=== PATIENT | female | born 1945 | race Two or more races ===

== ENCOUNTER → 2017-10-14 | Outpatient (CLI) | payer MEDICARE ==
--- NOTE | 2017-10-14 11:53 | BD ---
EXAMINATION TYPE: MG DEXA axial skeleton. DATE OF EXAM: 10/14/2017 COMPARISON: NONE CLINICAL HISTORY: PT IS A 71 YR OLD FEMALE: ICD-10 CODE: M85.80 DISORDER OF BONE Height: 60.2 Weight: 174 FRAX RISK QUESTIONS: Alcohol (3 or more units per day): NO Family History (Parent hip fracture): NO Glucocorticoids (More than 3mos): NO (Ex: prednisone, prednisolone, methylprednisolone, dexamethasone, and hydrocortisone). History of Fracture in Adulthood: NO Secondary Osteoporosis: YES 1. Type 1 Diabetes: NO 2. Hyperthyroidism: NO 3. Menopause before 45: YES, AT 44 YRS 4. Malnutrition: NO 5. Chronic liver disease: NON Rheumatoid Arthritis: NO Current Tobacco Use: NO RISK FACTORS HISTORY OF: Family History of Osteoporosis: NO Active: YES, FAIRLY Diet low in dairy products/other sources of calcium: YES A BIT LOW Postmenopausal woman: YES ABOUT AGE 44 YRS OLD Hyperparathyroidism: NO Adrenal Insufficiency: NO MEDICATIONS: Osteoporosis Medications: NO Additional Medications: BP MEDS, VIT D, REFLUX MEDS IN PAST FOR 10 YRS Additional History: NONE TO NOTE EXAM MEASUREMENTS: Bone mineral densitometry was performed using the [employer] System. Bone mineral density as measured about the Lumbar spine is: ----- L1-L4(G/cm2): 1.299 T Score Values are as follows: ----- L1: 0.0 ----- L2: 0.2 ----- L3: 1.6 ----- L4: 2.5 ----- L1-L4: 1.0 Bone mineral density FIRST BONE DENSITY STUDY AT [facility] Bone mineral density about the R hip (g/cm2): 0.831 Bone mineral density about the L hip (g/cm2): 0.846 T Score values are as follows: -----R Neck: -1.8 -----L Neck: -2.2 -----R Total: -1.4 -----L Total: -1.3 Bone mineral density FIRST STUDY AT [facility] FRAX%'S: THERE IS A 12.8% CHANCE OF A MAJOR OSTEOPOROTIC FX AND A 2.9% FOR A HIP FX.....PROBABILIT Y OF FX IN 10 YRS TIME IMPRESSION: Osteopenia (T Score between -2.5 and -1) as noted by T score values with regards to both hips. There is slightly increased risk of fracture and the patient may be considered for treatment. Re-Screen 2-5 years. NOTE: T-SCORE=SD OF THE YOUNG ADULT MEAN.
--- NOTE | 2017-10-15 09:13 | MM ---
Reason for exam: screening (asymptomatic). Last mammogram was performed 1 year and 7 months ago. History: Patient is postmenopausal and has history of other cancer at age 31. Benign cyst aspiration of the left breast, 1979. Took hormonal contraceptives beginning at age 20. Took estrogen beginning at age 50. Took progesterone beginning at age 50. Physical Findings: A clinical breast exam by your physician is recommended on an annual basis and results should be correlated with mammographic findings. MG 3D Screening Mammo W/Cad Bilateral CC and MLO view(s) were taken. Prior study comparison: March 02, 2016, mammogram, performed at [facility]. February 23, 2015, mammogram, performed at [facility]. Benign calcifications in the left breast. No significant changes when compared with prior studies. ASSESSMENT: Benign, BI-RAD 2 RECOMMENDATION: Routine screening mammogram of both breasts in 1 year.
== END | disposition home or self-care (01) ==
LOC: RADMAMWWP 08:12
PROVIDERS: ATTEND Family Medicine
DX: Z12.31 Encounter for screening mammogram for malignant neoplasm of breast (principal); M85.852 Other specified disorders of bone density and structure, left thigh; M85.851 Other specified disorders of bone density and structure, right thigh
CPT/HCPCS: 77063; 77067; 77080

== ENCOUNTER → 2019-01-12 | Outpatient (CLI) | payer MEDICARE ==
--- NOTE | 2019-01-14 11:14 | MM ---
Reason for exam: screening (asymptomatic). Last mammogram was performed 1 year and 3 months ago. History: Patient is postmenopausal and has history of other cancer at age 31. Benign cyst aspiration of the left breast, 1979. Took hormonal contraceptives beginning at age 20. Took estrogen beginning at age 50. Took progesterone beginning at age 50. Physical Findings: A clinical breast exam by your physician is recommended on an annual basis and results should be correlated with mammographic findings. MG 3D Screening Mammo W/Cad Bilateral CC and MLO view(s) were taken. Prior study comparison: October 14, 2017, bilateral MG 3d screening mammo w/cad. March 02, 2016, mammogram, performed at [facility]. There are scattered fibroglandular densities. No suspicious abnormality. No significant changes when compared with prior studies. ASSESSMENT: Negative, BI-RAD 1 RECOMMENDATION: Routine screening mammogram of both breasts in 1 year.
== END | disposition home or self-care (01) ==
LOC: RADMAMWWP 09:05
PROVIDERS: ATTEND Family Medicine
DX: Z12.31 Encounter for screening mammogram for malignant neoplasm of breast (principal)
CPT/HCPCS: 77063; 77067

== ENCOUNTER → 2020-03-15 | Outpatient (CLI) | payer MEDICARE ==
--- NOTE | 2020-03-17 08:05 | MM ---
Reason for exam: screening (asymptomatic). Last mammogram was performed 1 year and 2 months ago. History: Patient is postmenopausal and has history of other cancer at age 31. Benign cyst aspiration of the left breast, 1979. Took hormonal contraceptives beginning at age 20. Took estrogen beginning at age 50. Took progesterone beginning at age 50. Physical Findings: A clinical breast exam by your physician is recommended on an annual basis and results should be correlated with mammographic findings. MG 3D Screening Mammo W/Cad Bilateral CC and MLO view(s) were taken. Prior study comparison: January 12, 2019, bilateral MG 3d screening mammo w/cad. October 14, 2017, bilateral MG 3d screening mammo w/cad. The breast tissue is almost entirely fat. Benign calcifications. There is chronic nodularity in the left breast. No significant changes when compared with prior studies. ASSESSMENT: Benign, BI-RAD 2 RECOMMENDATION: Routine screening mammogram of both breasts in 1 year.
== END | disposition home or self-care (01) ==
LOC: RADMAMWWP 09:12
PROVIDERS: ATTEND Family Medicine
DX: Z12.31 Encounter for screening mammogram for malignant neoplasm of breast (principal)
CPT/HCPCS: 77063; 77067

== ENCOUNTER → 2021-08-24 | Outpatient (CLI) | payer MEDICARE ==
--- NOTE | 2021-08-25 11:51 | MM ---
Reason for exam: screening (asymptomatic). Last mammogram was performed 1 year and 5 months ago. History: Patient is postmenopausal and has history of other cancer at age 31. Benign cyst aspiration of the right breast, 1979. Took hormonal contraceptives beginning at age 20. Took estrogen beginning at age 50. Took progesterone beginning at age 50. Physical Findings: A clinical breast exam by your physician is recommended on an annual basis and results should be correlated with mammographic findings. MG 3D Screening Mammo W/Cad Bilateral CC and MLO view(s) were taken. Prior study comparison: March 15, 2020, bilateral MG 3d screening mammo w/cad. January 12, 2019, bilateral MG 3d screening mammo w/cad. The breast tissue is almost entirely fat. There are benign appearing round calcifications bilaterally. There is no discrete abnormality. ASSESSMENT: Benign, BI-RAD 2 RECOMMENDATION: Routine screening mammogram of both breasts in 1 year.
== END | disposition home or self-care (01) ==
LOC: RADMAMWWP 09:11
PROVIDERS: ATTEND Family Medicine
DX: Z12.31 Encounter for screening mammogram for malignant neoplasm of breast (principal)
CPT/HCPCS: 77063; 77067

== ENCOUNTER → 2022-07-16 | Outpatient (CLI) | payer MEDICARE ==
--- NOTE | 2022-07-16 17:30 | CT ---
EXAMINATION TYPE: CT shoulder RT wo con DATE OF EXAM: 07/16/2022 COMPARISON: None HISTORY: pain right shoulder CT DLP: 438 mGycm Automated exposure control for dose reduction was used. Contrast: None Technique: Axial images 3 mm thick sections. Reconstructed images in the coronal and sagittal plane. FINDINGS: Humeral head articulates with the glenoid. The acromioclavicular junction is intact. There is downwar d sloping of the acromion which can contribute to impingement syndrome. No acute fractures are identi fied. There is loss of the glenohumeral joint space. Subchondral cyst formation is evident. Humeral head sp urring is present. IMPRESSION: 1. ADVANCED OSTEOARTHRITIC DEGENERATIVE CHANGE WITH LOSS OF THE JOINT SPACE AND CHANGES OF JOINT SPAC E DESTRUCTION RIGHT SHOULDER.
== END | disposition home or self-care (01) ==
LOC: RADCTMAIN 07:44
PROVIDERS: ATTEND Orthopaedic Surgery
DX: M19.011 Primary osteoarthritis, right shoulder (principal)

== ENCOUNTER → 2022-08-27 | Outpatient (CLI) | payer MEDICARE ==
--- NOTE | 2022-08-28 20:01 | MM ---
Reason for Exam: Screening (asymptomatic). Last screening mammogram was performed 12 month(s) ago. Patient History: Menarche at age 11. First Full-Term at age 18. Hysterectomy at age 31. Postmenopausal. Other cancer, age 31. Estrogen, from age 50 until age 55. Progesterone, from age 50 until age 55. Hormonal Contraceptives, from age 20 until age 24. 1980, Benign Cyst Aspiration on the right side. Risk Values: Sarah 5 year model risk: 1.4%. NCI Lifetime model risk: 2.8%. Prior Study Comparison: 01/12/2019 Bilateral Screening Mammogram, [facility]. 03/15/2020 Bilateral Screening Mammogram, [facility]. 08/24/2021 Bilateral Screening Mammogram, [facility]. Tissue Density: The breast tissue is almost entirely fat. Findings: Analyzed By CAD. There is no suspicious group of microcalcifications or new suspicious mass in either breast. Overall Assessment: Benign, BI-RAD 2 Management: Screening Mammogram of both breasts in 1 year. 1. Patient should continue monthly self breast exams. 2. A clinical breast exam by your physician is recommended on an annual basis. 3. This exam should not preclude additional follow-up of suspicious palpable abnormalities. Electronically signed and approved by: Tarun Corona M.D. Radiologist
== END | disposition home or self-care (01) ==
LOC: RADMAMWWP 14:26
PROVIDERS: ATTEND Family Medicine
DX: Z12.31 Encounter for screening mammogram for malignant neoplasm of breast (principal); Z78.0 Asymptomatic menopausal state
CPT/HCPCS: 77063; 77067

== ENCOUNTER 2023-02-05 13:47 | Emergency (ER) | payer MEDICARE ==
[2023-02-05 13:53] VITALS: RESP 20
[2023-02-05 14:21] LABS: Basophils % (A) 0 %; Eosinophils # (A) 0.2 k/uL (0-0.7); Eosinophils % (A) 2 %; HCT 41.5 % (34.0-46.0); HGB 13.8 gm/dL (11.4-16.0); Lymphocytes % (A) 18 %; MCH 30.4 pg (25.0-35.0); MCHC 33.3 g/dL (31.0-37.0); MCV 91.2 fL (80.0-100.0); Monocytes # (A) 0.6 k/uL (0-1.0); Monocytes % (A) 5 %; Neutrophils # (A) 8.2 k/uL (1.3-7.7); Neutrophils % (A) 74 %; Platelet Count 218 k/uL (150-450); RBC 4.56 m/uL (3.80-5.40); RDW 13.3 % (11.5-15.5); WBC 11.1 k/uL (3.8-10.6)
--- NOTE | 2023-02-05 14:32 | XR ---
EXAMINATION TYPE: XR chest 2V DATE OF EXAM: 02/05/2023 2:29 PM COMPARISON: Chest radiographs from none TECHNIQUE: XR chest 2V Frontal and lateral views of the chest. CLINICAL INDICATION:Female, 77 years old with history of difficulty breathing; FINDINGS: Lungs/Pleura: There is no evidence of pleural effusion, focal consolidation, or pneumothorax. Pulmonary vascularity: Unremarkable. Heart/mediastinum: Cardiomediastinal silhouette is unremarkable. Musculoskeletal: No acute osseous pathology. Scoliosis changes to the spine. IMPRESSION: No acute cardiopulmonary disease/process.
[2023-02-05 14:37] LABS: ALT 21 U/L (4-34); AST 25 U/L (14-36); African American GFR (CKD) >90 (>60 ml/min/1.73 sqM); Albumin 4.4 g/dL (3.5-5.0); Alkaline Phosphatase 57 U/L (38-126); Anion Gap 11 mmol/L; Blood Urea Nitrogen 15 mg/dL (7-17); Calcium 9.4 mg/dL (8.4-10.2); Carbon Dioxide 29 mmol/L (22-30); Chloride 99 mmol/L (98-107); Glucose 128 mg/dL (74-99); Non-African American GFR(CKD) >90 (>60 ml/min/1.73 sqM); Potassium 3.3 mmol/L (3.5-5.1); Sodium 139 mmol/L (137-145); Total Bilirubin 0.6 mg/dL (0.2-1.3); Total Protein 7.2 g/dL (6.3-8.2)
[2023-02-05 14:40] LABS: INR 0.9 (<1.2); Partial Thromboplastin Time 24.2 sec (22.0-30.0); Prothrombin Time 9.7 sec (9.0-12.0)
--- NOTE | 2023-02-05 15:30 | ED ---
SOB HPI - General Chief Complaint: Shortness of Breath Stated Complaint: abn labs Time Seen by Provider: 02/05/23 14:48 Source: patient, RN notes reviewed Mode of arrival: ambulatory Limitations: no limitations - History of Present Illness Initial Comments: 77-year-old female presents with complaints of shortness of breath or past 2 weeks. She was placed on antibiotic today and took her first dose today. She states she had blood work which showed an elevated d-dimer. She has no prior history of blood clotting. No overt fevers chills sweats. MD Complaint: shortness of breath - Related Data Home Medications Medication Instructions Recorded Confirmed Albuterol Inhaler [Ventolin Hfa 2 puff INHALATION RT-Q6H PRN 02/05/23 02/05/23 Inhaler] Atorvastatin [Lipitor] 10 mg PO DAILY 02/05/23 02/05/23 Cholecalciferol [Vitamin D3 (25 25 mcg PO BID 02/05/23 02/05/23 Mcg = 1000 Iu)] Colon Probiotic 1 cap PO DAILY 02/05/23 02/05/23 Doxycycline Hyclate 100 mg PO BID 02/05/23 02/05/23 Fluticasone Propion/Salmeterol 1 puff INHALATION RT-BID 02/05/23 02/05/23 [Fluticasone-Salmeterol 500-50] Indapamide [Lozol] 1.25 mg PO DAILY 02/05/23 02/05/23 Meloxicam [Mobic] 15 mg PO DAILY 02/05/23 02/05/23 Multivitamins, Thera [Multivitamin 1 tab PO DAILY 02/05/23 02/05/23 (formulary)] Perindopril Erbumine [Aceon] 8 mg PO DAILY 02/05/23 02/05/23 dilTIAZem HCL [dilTIAZem HCL 24Hr 240 mg PO DAILY 02/05/23 02/05/23 ER (Xr)] oxyCODONE-APAP 5-325MG [Percocet 1 tab PO TID PRN 02/05/23 02/05/23 5-325 mg] Previous Rx's Medication Instructions Recorded Potassium Chloride ER [K-Dur 20] 20 meq PO BID #10 tab 02/05/23 Allergies Allergy/AdvReac Type Severity Reaction Status Date / Time clarithromycin Allergy Unknown Verified 02/05/23 15:11 Penicillins Allergy Unknown Verified 02/05/23 15:11 Review of Systems ROS Statement: Those systems with pertinent positive or pertinent negative responses have been documented in the HPI. ROS Other: All systems not noted in ROS Statement are negative. Past Medical History Past Medical History: Hypertension History of Any Multi-Drug Resistant Organisms: None Reported Past Surgical History: Appendectomy, Hysterectomy, Tonsillectomy Past Psychological History: No Psychological Hx Reported Smoking Status: Never smoker Past Alcohol Use History: None Reported Past Drug Use History: None Reported General Exam - General Exam Comments Initial Comments: This is a well-developed well-nourished awake alert oriented 4 female Limitations: no limitations General appearance: alert, in no apparent distress Head exam: Present: atraumatic, normocephalic, normal inspection Eye exam: Present: normal appearance, PERRL, EOMI. Absent: scleral icterus, conjunctival injection, periorbital swelling ENT exam: Present: normal exam, mucous membranes moist Neck exam: Present: normal inspection, full ROM, other (No stridor JVD or bruits). Absent: tenderness, meningismus, lymphadenopathy Respiratory exam: Present: rhonchi (Right lower lobe), decreased breath sounds. Absent: respiratory distress, wheezes, rales, stridor Cardiovascular Exam: Present: regular rate, normal rhythm, normal heart sounds. Absent: systolic murmur, diastolic murmur, rubs, gallop, clicks GI/Abdominal exam: Present: soft, normal bowel sounds. Absent: distended, tenderness, guarding, rebound, rigid Extremities exam: Present: normal inspection, full ROM, normal capillary refill. Absent: tenderness, pedal edema, joint swelling, calf tenderness Back exam: Present: normal inspection Neurological exam: Present: alert, oriented X3, CN II-XII intact Psychiatric exam: Present: normal affect, normal mood Skin exam: Present: warm, dry, intact, normal color. Absent: rash Course Vital Signs 02/05/23 13:48 Temperature 98.1 F Pulse Rate 61 Respiratory 20 Rate Blood Pressure 168/71 O2 Sat by Pulse 95 Oximetry Medical Decision Making - Medical Decision Making I did discuss [employer] the patient and her [address] negative for PE patient will be discharged she was originally diagnosed with bronchitis and placed on antibiotics she does not want to take the steroids that she has she does have inhalers at home she was advised to take steroids if no improvement. She will follow-up with her doctor return when necessary. She'll also be given a short course of potassium supplement Was pt. sent in by a medical professional or institution (JALEESA Haque, MANAGER MEDICAL DEVICE, urgent care, hospital, or intermediate...) When possible be specific @ -[No] Did you speak to anyone other than the patient for history (EMS, parent, family, police, friend...)? What history was obtained from this source @ -[No] Did you review nursing and triage notes (agree or disagree)? Why? @ -[I reviewed and agree with nursing and triage notes] Were old charts reviewed (outside hosp., previous admission, EMS record, old EKG, old radiological studies, urgent care reports/EKG's, intermediate records)? Report findings @ -[No old charts were reviewed] Differential Diagnosis (chest pain, altered mental status, abdominal pain women, abdominal pain men, vaginal bleeding, weakness, fever, dyspnea, syncope, headache, dizziness, GI bleed, back pain, seizure, CVA, palpatations, mental health, musculoskeletal)? @ -[not applicable] EKG interpreted by me (3pts min.). @ -[As above] X-rays interpreted by me (1pt min.). @ -[As above] CT interpreted by me (1pt min.). @ -[As above] U/S interpreted by me (1pt. min.). @ -[None done] What testing was considered but not performed or refused? (CT, X-rays, U/S, labs)? Why? @ -[None] What meds were considered but not given or refused? Why? @ -[None] Did you discuss the management of the patient with other professionals (jona gage i.e. JALEESA Haque, MANAGER MEDICAL DEVICE, lab, RT, psych nurse, forensic social worker, superintendent plant protection, teacher, fire management officer, watch caser)? Give summary @ -[No] Was smoking cessation discussed for >3mins.? @ -[No the patient quit smoking in 1976] Was critical care preformed (if so, how long)? @ -[No] Were there social determinants of health that impacted care today? How? (Homelessness, low income, unemployed, alcoholism, drug addiction, transportation, low edu. Level, literacy, decrease access to med. care, longterm, rehab)? @ -[No] Was there de-escalation of care discussed even if they declined (Discuss DNR or withdrawal of care, Hospice)? DNR status @ -[No] What co-morbidities impacted this encounter? (DM, HTN, Smoking, COPD, CAD, Cancer, CVA, ARF, Chemo, Hep., AIDS, mental health diagnosis, sleep apnea, morbid obesity)? @ -Former smoker] Was patient admitted / discharged? Hospital course, mention meds given and route, prescriptions, significant lab abnormalities, going to OR and other pe rtinent info. @ -[hospital course] patient was discharged home she will continue with her antibiotics she does have inhalers we did discuss steroid usage. She had this time does not want take steroids. Undiagnosed new problem with uncertain prognosis? @ -[No] Drug Therapy requiring intensive monitoring for toxicity (Heparin, Nitro, Insulin, Cardizem)? @ -[No] Were any procedures done? @ -[No] Diagnosis/symptom? @ -[Bronchitis, elevated d-dimer] Acute, or Chronic, or Acute on Chronic? @ -[Acute] Uncomplicated (without systemic symptoms) or Complicated (systemic symptoms)? @ -[default] Side effects of treatment? @ -[No] Exacerbation, Progression, or Severe Exacerbation? @ -[No] Poses a threat to life or bodily function? How? (Chest pain, [place], [place], pneumonia, PE, COPD, DKA, ARF, appy, cholecystitis, CVA, Diverticulitis, Homicidal, Suicidal, threat to staff... and all critical care pts) @ -[No] - Lab Data Result diagrams: 02/05/23 14:14 02/05/23 14:14 Lab Results 02/05/23 02/05/23 02/05/23 Range/Units 14:14 14:14 14:14 WBC 11.1 H (3.8-10.6) k/uL RBC 4.56 (3.80-5.40) m/uL Hgb 13.8 (11.4-16.0) gm/dL Hct 41.5 (34.0-46.0) % MCV 91.2 (80.0-100.0) fL MCH 30.4 (25.0-35.0) pg MCHC 33.3 (31.0-37.0) g/dL RDW 13.3 (11.5-15.5) % Plt Count 218 (150-450) k/uL MPV 9.0 Neutrophils % 74 % Lymphocytes % 18 % Monocytes % 5 % Eosinophils % 2 % Basophils % 0 % Neutrophils # 8.2 H (1.3-7.7) k/uL Lymphocytes # 2.0 (1.0-4.8) k/uL Monocytes # 0.6 (0-1.0) k/uL Eosinophils # 0.2 (0-0.7) k/uL Basophils # 0.0 (0-0.2) k/uL PT 9.7 (9.0-12.0) sec INR 0.9 (<1.2) APTT 24.2 (22.0-30.0) sec D-Dimer 1.29 H (<0.60) mg/L FEU Sodium 139 (137-145) mmol/L Potassium 3.3 L (3.5-5.1) mmol/L Chloride 99 (98-107) mmol/L Carbon Dioxide 29 (22-30) mmol/L Anion Gap 11 mmol/L BUN 15 (7-17) mg/dL Creatinine 0.56 (0.52-1.04) mg/dL Est GFR (CKD-EPI)AfAm >90 (>60 ml/min/1.73 sqM) Est GFR (CKD-EPI)NonAf >90 (>60 ml/min/1.73 sqM) Glucose 128 H (74-99) mg/dL Calcium 9.4 (8.4-10.2) mg/dL Total Bilirubin 0.6 (0.2-1.3) mg/dL AST 25 (14-36) U/L ALT 21 (4-34) U/L Alkaline Phosphatase 57 (38-126) U/L Troponin I (0.000-0.034) ng/mL NT-Pro-B Natriuret Pep pg/mL Total Protein 7.2 (6.3-8.2) g/dL Albumin 4.4 (3.5-5.0) g/dL 02/05/23 02/05/23 Range/Units 14:14 14:14 WBC (3.8-10.6) k/uL RBC (3.80-5.40) m/uL Hgb (11.4-16.0) gm/dL Hct (34.0-46.0) % MCV (80.0-100.0) fL MCH (25.0-35.0) pg MCHC (31.0-37.0) g/dL RDW (11.5-15.5) % Plt Count (150-450) k/uL MPV Neutrophils % % Lymphocytes % % Monocytes % % Eosinophils % % Basophils % % Neutrophils # (1.3-7.7) k/uL Lymphocytes # (1.0-4.8) k/uL Monocytes # (0-1.0) k/uL Eosinophils # (0-0.7) k/uL Basophils # (0-0.2) k/uL PT (9.0-12.0) sec INR (<1.2) APTT (22.0-30.0) sec D-Dimer (<0.60) mg/L FEU Sodium (137-145) mmol/L Potassium (3.5-5.1) mmol/L Chloride (98-107) mmol/L Carbon Dioxide (22-30) mmol/L Anion Gap mmol/L BUN (7-17) mg/dL Creatinine (0.52-1.04) mg/dL Est GFR (CKD-EPI)AfAm (>60 ml/min/1.73 sqM) Est GFR (CKD-EPI)NonAf (>60 ml/min/1.73 sqM) Glucose (74-99) mg/dL Calcium (8.4-10.2) mg/dL Total Bilirubin (0.2-1.3) mg/dL AST (14-36) U/L ALT (4-34) U/L Alkaline Phosphatase (38-126) U/L Troponin I <0.012 (0.000-0.034) ng/mL NT-Pro-B Natriuret Pep 119 pg/mL Total Protein (6.3-8.2) g/dL Albumin (3.5-5.0) g/dL - EKG Data -: EKG Interpreted by Me EKG Comments: EKG interpreted by me shows a sinus rhythm a 72 CT interval 190 QRS christian 97 QT/QTC 370/395 evidence of old inferior changes some artifact present he repeat EKG done just after this showed a sinus rhythm a 79 CT interval 190 QRS d uration 102 QT since QTC 389/424 same changes seen however this time occasional unifocal PVCs. - Radiology Data Interpreted by me: Imaging interpreted by me no evidence of acute PE/processes Disposition Clinical Impression: Acute bronchitis, Elevated d-dimer, Hypokalemia Disposition: HOME SELF-CARE Condition: Good Instructions (If sedation given, give patient instructions): Acute Bronchitis (ED) Additional Instructions: Continue with your prescriptions as we discussed Prescriptions: Potassium Chloride ER [K-Dur 20] 20 meq PO BID #10 tab Is patient prescribed a controlled substance at d/c from ED?: No Referrals: Jeet Alcaraz DO [Primary Care Provider] - 1-2 days Decision Date: 02/05/23 Decision Time: 16:56
--- NOTE | 2023-02-05 15:58 | CT ---
EXAMINATION TYPE: CT angio chest DATE OF EXAM: 02/05/2023 3:41 PM COMPARISON: HISTORY: elevated d-dimer CT DLP: 416.8 mGycm Automated exposure control for dose reduction was used. CONTRAST: CTA scan of the thorax is performed with IV Contrast, patient injected with 90cc mL of Isovue 370, pu lmonary embolism protocol. . FINDINGS: LUNGS: The lungs are grossly clear, there is no concerning parenchymal mass or nodule identified. T here is no pleural effusion or pneumothorax seen. The tracheobronchial tree is patent. MEDIASTINUM: There is satisfactory enhancement of the pulmonary artery and its branches, there is no CT evidence for pulmonary embolism. There are no greater than 1 cm hilar or mediastinal lymph nodes. No pericardial effusion is seen. Mild coronary artery calcification. Ectasia of the brachiocephali c artery. OTHER: Scoliosis with severe multilevel degenerative disc disease. Small hiatal hernia. A 1.2 cm lef t adrenal nodule. Measures 43 Hounsfield units. There is a 8 mm right adrenal nodule too small to gillian racterize. IMPRESSION: 1. NO DIAGNOSTIC EVIDENCE OF PULMONARY EMBOLISM. 2. CARDIOMEGALY WITH CORONARY ARTERY CALCIFICATION CORRELATE CLINICALLY. 3. BILATERAL ADRENAL NODULES ARE INDETERMINATE MOST LIKELY ON THE BASIS OF ADRENAL ADENOMA. NO PRIOR EXAMS AVAILABLE FOR COMPARISON. MRI CAN BE OBTAINED FOR FURTHER EVALUATION..
[2023-02-05 17:56] VITALS: BP 156/73; PULSE 62; TEMP 98.3
== END 2023-02-05 17:30 | disposition home or self-care (01) ==
LOC: EC 13:47
DX: J20.9 Acute bronchitis, unspecified (principal); E87.6 Hypokalemia; R79.89 Other specified abnormal findings of blood chemistry; I10 Essential (primary) hypertension; Z88.0 Allergy status to penicillin; Z88.1 Allergy status to other antibiotic agents; Z79.899 Other long term (current) drug therapy
CPT/HCPCS: 36415; 93005; 85379; 83880; 80053; 84484; 85025; 85610; 85730; 71046; 71275; 99285; Q9967

== ENCOUNTER → 2023-02-21 | Outpatient (CLI) | payer MEDICARE ==
--- NOTE | 2023-02-21 13:37 | US ---
EXAMINATION TYPE: US venous doppler duplex LE LT DATE OF EXAM: 02/21/2023 1:28 PM COMPARISON: NONE CLINICAL INDICATION: Female, 77 years old with history of R22.40 SWELLING, MASS AND LUMP; Swelling x 2 days. No hx of DVT. Patient does not take blood thinners. SIDE PERFORMED: Left TECHNIQUE: The lower extremity deep venous system is examined utilizing real time linear array sonog mark with graded compression, doppler sonography and color-flow sonography. FINDINGS: VESSELS IMAGED: Common Femoral Vein Deep Femoral Vein Greater Saphenous Vein * Femoral Vein Popliteal Vein Small Saphenous Vein * Proximal Calf Veins (* superficial vessels) Left Leg: No evidence of DVT. IMPRESSION: No evidence for DVT within the left lower extremity imaged from the groin to the upper calf.
== END | disposition home or self-care (01) ==
LOC: RADUSWWP 12:52
PROVIDERS: ATTEND Family Medicine
DX: R22.42 Localized swelling, mass and lump, left lower limb (principal)

== ENCOUNTER 2023-03-14 08:46 | Inpatient (IN) | payer MEDICARE ==
[2023-03-14] MEDS ORDERED: ASPIRIN 81 MG PO STA (08:57)
[2023-03-14] MEDS ORDERED: IPRATROPIUM-ALBUTEROL 3 ML NEB INHALATION STA (08:57)
[2023-03-14] MEDS ORDERED: methylPREDNISolone SOD SUCCI 125 MG/2 ML VIAL IV STA (08:57)
--- NOTE | 2023-03-14 09:00 | ED ---
General Adult HPI - General Chief complaint: Shortness of Breath Stated complaint: sob Time Seen by Provider: 03/14/23 08:51 Source: patient, RN notes reviewed Mode of arrival: ambulatory Limitations: no limitations - History of Present Illness Initial comments: Patient is a pleasant 77 -year-old female presenting to the emergency department difficulty breathing. Onset of symptoms was around 4 days ago. Patient has mild nonproductive cough. Patient does have history of COPD. Patient has started to develop some tightness in her chest since last night. No leg pain or leg swelling. No fevers. - Related Data Home Medications Medication Instructions Recorded Confirmed Albuterol Inhaler [Ventolin Hfa 2 puff INHALATION RT-Q6H PRN 02/05/23 02/05/23 Inhaler] Atorvastatin [Lipitor] 10 mg PO DAILY 02/05/23 02/05/23 Cholecalciferol [Vitamin D3 (25 25 mcg PO BID 02/05/23 02/05/23 Mcg = 1000 Iu)] Colon Probiotic 1 cap PO DAILY 02/05/23 02/05/23 Doxycycline Hyclate 100 mg PO BID 02/05/23 02/05/23 Fluticasone Propion/Salmeterol 1 puff INHALATION RT-BID 02/05/23 02/05/23 [Fluticasone-Salmeterol 500-50] Indapamide [Lozol] 1.25 mg PO DAILY 02/05/23 02/05/23 Meloxicam [Mobic] 15 mg PO DAILY 02/05/23 02/05/23 Multivitamins, Thera [Multivitamin 1 tab PO DAILY 02/05/23 02/05/23 (formulary)] Perindopril Erbumine [Aceon] 8 mg PO DAILY 02/05/23 02/05/23 dilTIAZem HCL [dilTIAZem HCL 24Hr 240 mg PO DAILY 02/05/23 02/05/23 ER (Xr)] oxyCODONE-APAP 5-325MG [Percocet 1 tab PO TID PRN 02/05/23 02/05/23 5-325 mg] Previous Rx's Medication Instructions Recorded Potassium Chloride ER [K-Dur 20] 20 meq PO BID #10 tab 02/05/23 Allergies Allergy/AdvReac Type Severity Reaction Status Date / Time clarithromycin Allergy Unknown Verified 03/14/23 08:50 Penicillins Allergy Unknown Verified 03/14/23 08:50 Review of Systems ROS Statement: Those systems with pertinent positive or pertinent negative responses have been documented in the HPI. ROS Other: All systems not noted in ROS Statement are negative. Constitutional: Denies: fever Eyes: Denies: eye pain ENT: Denies: congestion Respiratory: Reports: as per HPI, cough, dyspnea Cardiovascular: Reports: as per HPI, chest pain Endocrine: Denies: fatigue Gastrointestinal: Denies: abdominal pain Genitourinary: Denies: dysuria Musculoskeletal: Denies: back pain Skin: Denies: rash Past Medical History Past Medical History: Asthma, COPD, Hypertension History of Any Multi-Drug Resistant Organisms: None Reported Past Surgical History: Appendectomy, Hysterectomy, Tonsillectomy Past Psychological History: No Psychological Hx Reported Smoking Status: Never smoker Past Alcohol Use History: None Reported Past Drug Use History: None Reported General Exam Limitations: no limitations General appearance: alert, other (Patient speaks in 2-3 word sentences) Head exam: Present: normocephalic Eye exam: Present: normal appearance Neck exam: Present: normal inspection Respiratory exam: Present: decreased breath sounds Cardiovascular Exam: Present: tachycardia GI/Abdominal exam: Present: soft. Absent: tenderness Extremities exam: Present: normal inspection. Absent: pedal edema, calf tenderness Neurological exam: Present: alert Psychiatric exam: Present: normal affect, normal mood Skin exam: Present: normal color Course Vital Signs 03/14/23 03/14/23 03/14/23 08:47 09:01 09:10 Temperature 98.4 F Pulse Rate 95 79 81 Respiratory 26 H 20 20 Rate Blood Pressure 158/65 146/81 O2 Sat by Pulse 98 96 Oximetry 03/14/23 09:20 Temperature Pulse Rate 81 Respiratory 18 Rate Blood Pressure O2 Sat by Pulse Oximetry EKG Findings - EKG Results: EKG: interpreted by ERMD, sinus rhythm, normal axis, normal QRS, normal ST/T Medical Decision Making - Medical Decision Making Was pt. sent in by a medical professional or institution (, PA, PHOTOCOPIER TECHNICIAN, urgent care, hospital, or long-term...) When possible be specific @ -No Did you speak to anyone other than the patient for history (EMS, parent, family, police, friend...)? What history was obtained from this source @ - Did you review nursing and triage notes (agree or disagree)? Why? @ -I reviewed and agree with nursing and triage notes Were old charts reviewed (outside hosp., previous admission, EMS record, old EKG, old radiological studies, urgent care reports/EKG's, long-term records)? Report findings @ -No old charts were reviewed Differential Diagnosis (chest pain, altered mental status, abdominal pain women, abdominal pain men, vaginal bleeding, weakness, fever, dyspnea, syncope, he adache, dizziness, GI bleed, back pain, seizure, CVA, palpatations, mental health)? @ -Differential Dyspnea: Coronary syndrome, arrhythmia, tamponade, asthma, COPD, pulmonary embolism, pneumonia, pneumothorax, pulmonary effusion, anaphylaxis, diabetic ketoacidosis, flailed chest, pulmonary contusion, diaphragmatic rupture, anemia, neuromuscular, this is not meant to be an all-inclusive list. EKG interpreted by me (3pts min.). @ -As above X-rays interpreted by me (1pt min.). @ -Chest x-ray shows no acute process CT interpreted by me (1pt min.). @ -None done U/S interpreted by me (1pt. min.). @ -None done What testing was considered but not performed or refused? (CT, X-rays, U/S, labs)? Why? @ -None What meds were considered but not given or refused? Why? @ -None Did you discuss the management of the patient with other professionals (professionals i.e. , PA, PHOTOCOPIER TECHNICIAN, lab, RT, psych nurse, adoption social worker, obiee report developer, teacher, lead security officer, major case detective)? Give summary @ -Case was discussed with Dr. Ye, who will admit For Dr. Alcaraz Was smoking cessation discussed for >3mins.? @ -No Was critical care preformed (if so, how long)? @ -No Were there social determinants of health that impacted care today? How? (Homelessness, low income, unemployed, alcoholism, drug addiction, transportation, low edu. Level, literacy, decrease access to med. care, shelter, rehab)? @ -No Was there de-escalation of care discussed even if they declined (Discuss DNR or withdrawal of care, Hospice)? DNR status @ -No What co-morbidities impacted this encounter? (DM, HTN, Smoking, COPD, CAD, Cancer, CVA, ARF, Chemo, Hep., AIDS, mental health diagnosis, sleep apnea, morbid obesity)? @ -None Was patient admitted / discharged? Hospital course, mention meds given and route, prescriptions, significant lab abnormalities, going to OR and other pertinent info. @ -Patient reevaluated and improved. Patient has mild dyspnea. Patient is updated on results and plan. Patient will be admitted Undiagnosed new problem with uncertain prognosis? @ -No Drug Therapy requiring intensive monitoring for toxicity (Heparin, Nitro, Insulin, Cardizem)? @ -No Were any procedures done? @ -No Diagnosis/symptom? @ -COPD, chest pain Acute, or Chronic, or Acute on Chronic? @ -Acute on chronic, acute Uncomplicated (without systemic symptoms) or Complicated (systemic symptoms)? @ -default Side effects of treatment? @ -No Exacerbation, Progression, or Severe Exacerbation? @ -COPD is an exacerbation Poses a threat to life or bodily function? How? (Chest pain, [place], [place], pneumonia, PE, COPD, DKA, ARF, appy, cholecystitis, CVA, Diverticulitis, Homicidal, Suicidal, threat to staff... and all critical care pts) @ -No - Lab Data Result diagrams: 03/14/23 09:00 03/14/23 09:00 Lab Results 03/14/23 03/14/23 03/14/23 Range/Units 09:00 09:00 09:00 WBC 7.3 (3.8-10.6) k/uL RBC 4.56 (3.80-5.40) m/uL Hgb 13.6 (11.4-16.0) gm/dL Hct 41.0 (34.0-46.0) % MCV 90.0 (80.0-100.0) fL MCH 29.9 (25.0-35.0) pg MCHC 33.2 (31.0-37.0) g/dL RDW 13.5 (11.5-15.5) % Plt Count 205 (150-450) k/uL MPV 8.2 Neutrophils % 65 % Lymphocytes % 18 % Monocytes % 10 % Eosinophils % 3 % Basophils % 0 % Neutrophils # 4.7 (1.3-7.7) k/uL Lymphocytes # 1.3 (1.0-4.8) k/uL Monocytes # 0.7 (0-1.0) k/uL Eosinophils # 0.3 (0-0.7) k/uL Basophils # 0.0 (0-0.2) k/uL PT 9.7 (9.0-12.0) sec INR 0.9 (<1.2) APTT 25.3 (22.0-30.0) sec D-Dimer 1.07 H (<0.60) mg/L FEU Sodium 138 (137-145) mmol/L Potassium 3.1 L (3.5-5.1) mmol/L Chloride 100 (98-107) mmol/L Carbon Dioxide 26 (22-30) mmol/L Anion Gap 12 mmol/L BUN 11 (7-17) mg/dL Creatinine 0.47 L (0.52-1.04) mg/dL Est GFR (CKD-EPI)AfAm >90 (>60 ml/min/1.73 sqM) Est GFR (CKD-EPI)NonAf >90 (>60 ml/min/1.73 sqM) Glucose 93 (74-99) mg/dL Plasma Lactic Acid Stanley (0.7-2.0) mmol/L Calcium 9.7 (8.4-10.2) mg/dL Magnesium 1.8 (1.6-2.3) mg/dL Total Bilirubin 0.5 (0.2-1.3) mg/dL AST 28 (14-36) U/L ALT 21 (4-34) U/L Alkaline Phosphatase 64 (38-126) U/L Troponin I (0.000-0.034) ng/mL NT-Pro-B Natriuret Pep pg/mL Total Protein 7.5 (6.3-8.2) g/dL Albumin 4.4 (3.5-5.0) g/dL Influenza Type A (PCR) (Not Detectd) Influenza Type B (PCR) (Not Detectd) RSV (PCR) (Not Detectd) SARS-CoV-2 (PCR) (Not Detectd) 03/14/23 03/14/23 03/14/23 Range/Units 09:00 09:00 09:00 WBC (3.8-10.6) k/uL RBC (3.80-5.40) m/uL Hgb (11.4-16.0) gm/dL Hct (34.0-46.0) % MCV (80.0-100.0) fL MCH (25.0-35.0) pg MCHC (31.0-37.0) g/dL RDW (11.5-15.5) % Plt Count (150-450) k/uL MPV Neutrophils % % Lymphocytes % % Monocytes % % Eosinophils % % Basophils % % Neutrophils # (1.3-7.7) k/uL Lymphocytes # (1.0-4.8) k/uL Monocytes # (0-1.0) k/uL Eosinophils # (0-0.7) k/uL Basophils # (0-0.2) k/uL PT (9.0-12.0) sec INR (<1.2) APTT (22.0-30.0) sec D-Dimer (<0.60) mg/L FEU Sodium (137-145) mmol/L Potassium (3.5-5.1) mmol/L Chloride (98-107) mmol/L Carbon Dioxide (22-30) mmol/L Anion Gap mmol/L BUN (7-17) mg/dL Creatinine (0.52-1.04) mg/dL Est GFR (CKD-EPI)AfAm (>60 ml/min/1.73 sqM) Est GFR (CKD-EPI)NonAf (>60 ml/min/1.73 sqM) Glucose (74-99) mg/dL Plasma Lactic Acid Stanley 2.0 (0.7-2.0) mmol/L Calcium (8.4-10.2) mg/dL Magnesium (1.6-2.3) mg/dL Total Bilirubin (0.2-1.3) mg/dL AST (14-36) U/L ALT (4-34) U/L Alkaline Phosphatase (38-126) U/L Troponin I <0.012 (0.000-0.034) ng/mL NT-Pro-B Natriuret Pep 212 pg/mL Total Protein (6.3-8.2) g/dL Albumin (3.5-5.0) g/dL Influenza Type A (PCR) (Not Detectd) Influenza Type B (PCR) (Not Detectd) RSV (PCR) (Not Detectd) SARS-CoV-2 (PCR) (Not Detectd) 03/14/23 Range/Units 09:00 WBC (3.8-10.6) k/uL RBC (3.80-5.40) m/uL Hgb (11.4-16.0) gm/dL Hct (34.0-46.0) % MCV (80.0-100.0) fL MCH (25.0-35.0) pg MCHC (31.0-37.0) g/dL RDW (11.5-15.5) % Plt Count (150-450) k/uL MPV Neutrophils % % Lymphocytes % % Monocytes % % Eosinophils % % Basophils % % Neutrophils # (1.3-7.7) k/uL Lymphocytes # (1.0-4.8) k/uL Monocytes # (0-1.0) k/uL Eosinophils # (0-0.7) k/uL Basophils # (0-0.2) k/uL PT (9.0-12.0) sec INR (<1.2) APTT (22.0-30.0) sec D-Dimer (<0.60) mg/L FEU Sodium (137-145) mmol/L Potassium (3.5-5.1) mmol/L Chloride (98-107) mmol/L Carbon Dioxide (22-30) mmol/L Anion Gap mmol/L BUN (7-17) mg/dL Creatinine (0.52-1.04) mg/dL Est GFR (CKD-EPI)AfAm (>60 ml/min/1.73 sqM) Est GFR (CKD-EPI)NonAf (>60 ml/min/1.73 sqM) Glucose (74-99) mg/dL Plasma Lactic Acid Stanley (0.7-2.0) mmol/L Calcium (8.4-10.2) mg/dL Magnesium (1.6-2.3) mg/dL Total Bilirubin (0.2-1.3) mg/dL AST (14-36) U/L ALT (4-34) U/L Alkaline Phosphatase (38-126) U/L Troponin I (0.000-0.034) ng/mL NT-Pro-B Natriuret Pep pg/mL Total Protein (6.3-8.2) g/dL Albumin (3.5-5.0) g/dL Influenza Type A (PCR) Not Detected (Not Detectd) Influenza Type B (PCR) Not Detected (Not Detectd) RSV (PCR) Not Detected (Not Detectd) SARS-CoV-2 (PCR) Not Detected (Not Detectd) Disposition Clinical Impression: Acute exacerbation of chronic obstructive pulmonary disease, Chest pain Disposition: ADMITTED IP TO THIS HOSP Is patient prescribed a controlled substance at d/c from ED?: No Referrals: Jeet Alcaraz DO [Primary Care Provider] - 1-2 days Time of Disposition: 11:23
[2023-03-14 09:20] LABS: Basophils % (A) 0 %; Eosinophils # (A) 0.3 k/uL (0-0.7); Eosinophils % (A) 3 %; HGB 13.6 gm/dL (11.4-16.0); Lymphocytes # (A) 1.3 k/uL (1.0-4.8); Lymphocytes % (A) 18 %; MCH 29.9 pg (25.0-35.0); MCHC 33.2 g/dL (31.0-37.0); Mean Platelet Volume 8.2; Monocytes # (A) 0.7 k/uL (0-1.0); Monocytes % (A) 10 %; Neutrophils # (A) 4.7 k/uL (1.3-7.7); Neutrophils % (A) 65 %; Platelet Count 205 k/uL (150-450); RBC 4.56 m/uL (3.80-5.40); RDW 13.5 % (11.5-15.5); WBC 7.3 k/uL (3.8-10.6)
[2023-03-14 09:32] LABS: INR 0.9 (<1.2); Partial Thromboplastin Time 25.3 sec (22.0-30.0); Prothrombin Time 9.7 sec (9.0-12.0)
[2023-03-14 09:36] LABS: ALT 21 U/L (4-34); AST 28 U/L (14-36); African American GFR (CKD) >90 (>60 ml/min/1.73 sqM); Albumin 4.4 g/dL (3.5-5.0); Alkaline Phosphatase 64 U/L (38-126); Anion Gap 12 mmol/L; Blood Urea Nitrogen 11 mg/dL (7-17); Calcium 9.7 mg/dL (8.4-10.2); Carbon Dioxide 26 mmol/L (22-30); Chloride 100 mmol/L (98-107); Glucose 93 mg/dL (74-99); Magnesium 1.8 mg/dL (1.6-2.3); Non-African American GFR(CKD) >90 (>60 ml/min/1.73 sqM); Potassium 3.1 mmol/L (3.5-5.1); Sodium 138 mmol/L (137-145); Total Bilirubin 0.5 mg/dL (0.2-1.3); Total Protein 7.5 g/dL (6.3-8.2)
--- NOTE | 2023-03-14 09:50 | XR ---
EXAMINATION TYPE: XR chest 2V DATE OF EXAM: 03/14/2023 COMPARISON: 02/05/2023 HISTORY: 77 year-old female shortness of breath, difficulty breathing TECHNIQUE: PA and lateral views FINDINGS: Heart upper limits of normal in size. Marked dextroconvex scoliosis. Aorta within normal limits. Some strandy atelectasis in the lower lungs. No consolidation or pleural effusion. IMPRESSION: Borderline heart size. Prominent dextroconvex scoliosis. No definite acute process.
--- NOTE | 2023-03-14 10:34 | CT ---
EXAMINATION TYPE: CT angio chest CT DLP: 411.5 mGycm, Automated exposure control for dose reduction was used. DATE OF EXAM: 03/14/2023 10:26 AM COMPARISON: Chest radiograph 03/14/2023, CTA chest 02/05/2023 CLINICAL INDICATION:Female, 77 years old with history of dyspnea; SOB, Suspect PE TECHNIQUE/CONTRAST: CTA scan of the thorax is performed without and with IV Contrast, patient injected with 100 ml of Iso dorys 370, pulmonary embolism protocol. MIP images are created and reviewed. FINDINGS: Pulmonary Artery: There is no evidence for a filling defect within the pulmonary vasculature to sugge st acute pulmonary embolism. The pulmonary artery is of normal size. Lungs/Pleura: No evidence of focal consolidation, pleural effusion or pneumothorax. Airway: Large airways are patent. Heart: Mildly enlarged. Minimal coronary arterial calcifications. No pericardial effusion. Vasculature: No evidence of aortic aneurysm. Tortuous aorta. Mediastinum: No gross evidence of adenopathy. Musculoskeletal: No acute osseous abnormalities. Bilateral shoulder arthropathy. Scoliotic curvature of the cervical thoracic spine. Moderate multilevel degenerative disc disease. Soft Tissues: Unremarkable. Lower neck: No significant findings. Upper Abdomen: Partial visualization of left adrenal gland nodule. IMPRESSION: No evidence of pulmonary embolism or acute thoracic process.
[2023-03-14] MEDS ORDERED: NALOXONE 0.4 MG/ML 1 ML VIAL IVP PRN (11:24)
[2023-03-14] MEDS ORDERED: NITROGLYCERIN SL TABS 0.4 MG TAB SUBLINGUAL PRN (11:24)
[2023-03-14] MEDS ORDERED: IPRATROPIUM-ALBUTEROL 3 ML NEB INHALATION PRN (11:24)
[2023-03-14] MEDS: methylPREDNISolone SOD SUCCI 125 MG/2 ML VIAL IV SCH ×3 (12:26→23:21)
[2023-03-14] MEDS: NITROGLYCERIN OINT 1 INCH/GM PACKET TOPICAL SCH ×2 (12:37→18:09)
[2023-03-14] MEDS: IPRATROPIUM-ALBUTEROL 3 ML NEB INHALATION SCH ×3 (13:13→20:15)
--- NOTE | 2023-03-14 14:33 | P.CNPUL ---
History of Present Illness Consult date: 03/14/23 Requesting physician: Audie Ye Reason for consult: asthma Chief complaint: Shortness of breath History of present illness: This is a very pleasant 77-year-old female patient with history of hypertension, hyperlipidemia, mild intermittent chronic bronchial asthma and is maintained on Wixela and albuterol in the outpatient setting. She presented to the emergency room earlier this morning with a 4 day history of increasing shortness of breath, cough, burning in the middle of her chest chest tightness and wheezing. No fever chills. No productive cough. No hemoptysis. Chest x-ray revealed no acute pulmonary process. CT angiogram revealed no evidence of pulmonary embolism. No acute thoracic process. White count 7.3. Hemoglobin 13.6. Platelets 205. D-dimer 1.07. Sodium 138. Potassium 3.1. Bicarb 26. BUN 11. Creatinine 0.47. Troponin negative 2. ProBNP 212. Influenza screen negative. RSV screen negative. COVID-19 screen negative. She's been initiated on DuoNeb inhalations, Symbicort, IV Solu-Medrol. She is seen today in consultation in the emergency department. She is currently sitting up on the stretcher. Awake and alert in no acute distress. Maintaining good O2 saturations in the 90s on room air. She's been afebrile. Hemodynamically stable. Review of Systems REVIEW OF SYSTEMS: CONSTITUTIONAL: Denies any recent significant weight loss or weight gain. EYES: Denies change in vision. EARS, NOSE, MOUTH, THROAT: Denies headaches, denies sore throat. CARDIOVASCULAR: Denies chest pain, palpitations or syncopal episodes. RESPIRATORY: Positive for shortness of breath, cough, congestion no hemoptysis. GASTROINTESTINAL: Denies change in appetite, denies abdominal pain GENITOURINARY: Denies hematuria, denies infections. MUSKULOSKELETAL: Denies pain, denies swelling. INTEGUMENTARY: Denies rash, denies eczema. NEUROLOGICAL: Denies recent memory loss, no recent seizure activity. PSYCHIATRIC: Denies anxiety, denies depression. HEMATOLOGIC/LYMPHATIC: Denies anemia, denies enlarged lymph nodes. Past Medical History Past Medical History: Asthma, COPD, Hypertension History of Any Multi-Drug Resistant Organisms: None Reported Past Surgical History: Appendectomy, Hysterectomy, Tonsillectomy Past Psychological History: No Psychological Hx Reported Smoking Status: Never smoker Past Alcohol Use History: None Reported Past Drug Use History: None Reported Medications and Allergies Home Medications Medication Instructions Recorded Confirmed Type Albuterol Inhaler [Ventolin Hfa 2 puff INHALATION RT-Q6H PRN 02/05/23 03/14/23 History Inhaler] Atorvastatin [Lipitor] 10 mg PO DAILY 02/05/23 03/14/23 History Cholecalciferol [Vitamin D3 (25 25 mcg PO BID 02/05/23 03/14/23 History Mcg = 1000 Iu)] Colon Probiotic 1 cap PO DAILY 02/05/23 03/14/23 History Fluticasone Propion/Salmeterol 1 puff INHALATION RT-BID 02/05/23 03/14/23 History [Fluticasone-Salmeterol 500-50] Indapamide [Lozol] 1.25 mg PO DAILY 02/05/23 03/14/23 History Meloxicam [Mobic] 15 mg PO DAILY 02/05/23 03/14/23 History Multivitamins, Thera [Multivitamin 1 tab PO DAILY 02/05/23 03/14/23 History (formulary)] Perindopril Erbumine [Aceon] 8 mg PO DAILY 02/05/23 03/14/23 History dilTIAZem HCL [dilTIAZem HCL 24Hr 240 mg PO DAILY 02/05/23 03/14/23 History ER (Xr)] oxyCODONE-APAP 5-325MG [Percocet 1 tab PO TID PRN 02/05/23 03/14/23 History 5-325 mg] Allergies Allergy/AdvReac Type Severity Reaction Status Date / Time clarithromycin Allergy Unknown Verified 03/14/23 11:40 Penicillins Allergy Unknown Verified 03/14/23 11:40 Physical Exam Vitals: Vital Signs Temp Pulse Resp BP Pulse Ox 03/14/23 13:23 81 16 03/14/23 13:15 98 03/14/23 13:13 80 18 03/14/23 09:20 81 18 03/14/23 09:10 81 20 03/14/23 09:01 79 20 146/81 96 03/14/23 08:47 98.4 F 95 26 H 158/65 98 Intake and Output 03/13/23 03/14/23 03/14/23 22:59 06:59 14:59 Other: Weight 76.657 kg GENERAL EXAM: Alert, very pleasant 77-year-old female, on room air, comfortable in no apparent distress. HEAD: Normocephalic. EYES: Normal reaction of pupils, equal size. NOSE: Clear with pink turbinates. THROAT: No erythema or exudates. NECK: No masses, no JVD. CHEST: No chest wall deformity. LUNGS: Equal air entry with faint end expiratory wheeze, diminished. CVS: S1 and S2 normal with no audible murmur, regular rhythm. ABDOMEN: No hepatosplenomegaly, normal bowel sounds, no guarding or rigidity. SPINE: No scoliosis or deformity SKIN: No rashes CENTRAL NERVOUS SYSTEM: No focal deficits, tone is normal in all 4 extremities. EXTREMITIES: There is no peripheral edema. No clubbing, no cyanosis. Peripheral pulses are intact. Results - Laboratory Findings CBC and BMP: 03/14/23 09:00 03/14/23 09:00 PT/INR, D-dimer PT 9.7 sec (9.0-12.0) 03/14/23 09:00 INR 0.9 (<1.2) 03/14/23 09:00 D-Dimer 1.07 mg/L FEU (<0.60) H 03/14/23 09:00 Abnormal lab findings: Abnormal Labs 03/14/23 03/14/23 09:00 09:00 D-Dimer 1.07 H Potassium 3.1 L Creatinine 0.47 L - Diagnostic Findings Chest x-ray: image reviewed CT scan - chest: image reviewed Assessment and Plan Assessment: Acute exacerbation of mild intermittent chronic bronchial asthma. No evidence of pneumonia. RSV screen negative. Influenza screen negative. COVID-19 history negative. History of hypertension Hyperlipidemia Very remote smoking history Plan: The patient was seen and evaluated Chest x-ray, CT angiogram, labs and medications reviewed Continue DuoNeb inhalations, Symbicort, IV Solu-Medrol Currently stable and on room air Probable discharge in the a.m. We will continue to follow and make further recommendations based on her clinical status I have personally seen and examined the patient, performed the documentation and the assessment and plan as written. Number of minutes spent on the visit: 20.
[2023-03-14] MEDS: oxyCODONE-APAP 5-325MG 1 EACH TAB PO PRN (19:58)
[2023-03-14] MEDS ORDERED: SYMBICORT 160-4.5 MCG INHALER INHALATION SCH (20:00)
--- NOTE | 2023-03-14 21:20 | P.HPIM ---
History of Present Illness H&P Date: 03/14/23 Chief Complaint: Short of breath This is a pleasant 77-year-old patient, follows with Dr. Alcaraz. Patient also follows with Dr. Arnett from pulmonary and Dr. Caputo from cardiology. Dr. Caputo is following the patient outpatient for cardiac symptoms Patient now presents with increasing shortness of breath this morning. Some chills. No fever. Appetite is fair. No cough. Also felt a burning sensation in the chest. Did not radiate anywhere. No dizziness or lightheadedness. After getting breathing treatments feeling better. Review of systems: GEN.: Tired EYES: None HEENT: None NECK: None RESPIRATORY: As above CARDIOVASCULAR: As above GASTROINTESTINAL: None GENITOURINARY: Combivent MUSCULOSKELETAL: Multiple joint pain LYMPHATICS: None HEMATOLOGICAL: None PSYCHIATRY: None NEUROLOGICAL: None Past medical history to include: Ex-smoker, lives with her sons. No alcohol. Physical examination: VITAL SIGNS: 98.5, 1 or 2, 19, 140/79, 93% room air GENERAL: BMI 31.9, sitting up in the recliner short of breath. EYES: Pupils equal. Conjunctiva normal. HEENT: External appearance of nose and ears normal, oral cavity grossly normal. NECK: JVD not raised; masses not palpable. HEART: First and second heart sounds are normal; no edema. LUNGS: Respiratory rate increased; trees breath sounds, wheezing. ABDOMEN: Soft, nontender, liver spleen not palpable, no masses palpable. PSYCH: Alert and oriented x3; mood and affect anxiousl. MUSCULOSKELETAL:No Clubbing/cyanosis;muscles-grossly intact. OA NEUROLOGICAL: Cranial nerves grossly intact; no facial asymmetry, power and sensation grossly intact. LYMPHATICS: No lymph nodes palpable in the axilla and neck INVESTIGATIONS, reviewed in the clinical context: White count 7.3 hemoglobin 13.6 platelets 205 sodium 138 potassium 3.1 BUN 11 creatinine 0.47 Troponin I less than 0.0123 proBNP 212 Influenza type A, diabetes, honestly, COVID-19: Not detected EKG tracing personally reviewed by me-normal sinus rhythm. Chest CTA: No PE Chest x-ray film personally reviewed by me-borderline cardiomegaly Assessment and plan: -Acute COPD exacerbation in a previous smoker DuoNeb. IV Solu-Medrol. Consult Dr. Kathrine -Anterior chest fall burning sensation. Rule out cardiac cause. Troponin. T elemetry. Consult cardiology -Hyperlipidemia Lipitor -Primary ostomy there is multiple joints Mobic -Essential hypertension Cardizem CD -Chronic insomnia Medications as needed Past Medical History Past Medical History: Asthma, COPD, Hypertension History of Any Multi-Drug Resistant Organisms: None Reported Past Surgical History: Appendectomy, Hysterectomy, Tonsillectomy Past Psychological History: No Psychological Hx Reported Smoking Status: Never smoker Past Alcohol Use History: None Reported Past Drug Use History: None Reported Medications and Allergies Home Medications Medication Instructions Recorded Confirmed Type Albuterol Inhaler [Ventolin Hfa 2 puff INHALATION RT-Q6H PRN 02/05/23 03/14/23 History Inhaler] Atorvastatin [Lipitor] 10 mg PO DAILY 02/05/23 03/14/23 History Cholecalciferol [Vitamin D3 (25 25 mcg PO BID 02/05/23 03/14/23 History Mcg = 1000 Iu)] Colon Probiotic 1 cap PO DAILY 02/05/23 03/14/23 History Fluticasone Propion/Salmeterol 1 puff INHALATION RT-BID 02/05/23 03/14/23 History [Fluticasone-Salmeterol 500-50] Indapamide [Lozol] 1.25 mg PO DAILY 02/05/23 03/14/23 History Meloxicam [Mobic] 15 mg PO DAILY 02/05/23 03/14/23 History Multivitamins, Thera [Multivitamin 1 tab PO DAILY 02/05/23 03/14/23 History (formulary)] Perindopril Erbumine [Aceon] 8 mg PO DAILY 02/05/23 03/14/23 History dilTIAZem HCL [dilTIAZem HCL 24Hr 240 mg PO DAILY 02/05/23 03/14/23 History ER (Xr)] oxyCODONE-APAP 5-325MG [Percocet 1 tab PO TID PRN 02/05/23 03/14/23 History 5-325 mg] Allergies Allergy/AdvReac Type Severity Reaction Status Date / Time clarithromycin Allergy Unknown Verified 03/14/23 11:40 Penicillins Allergy Unknown Verified 03/14/23 11:40 Physical Exam Vitals: Vital Signs Temp Pulse Resp BP Pulse Ox 03/14/23 13:23 81 16 03/14/23 13:15 98 03/14/23 13:13 80 18 03/14/23 09:20 81 18 03/14/23 09:10 81 20 03/14/23 09:01 79 20 146/81 96 03/14/23 08:47 98.4 F 95 26 H 158/65 98 Intake and Output 03/13/23 03/14/23 03/14/23 22:59 06:59 14:59 Other: Weight 76.657 kg Results CBC & Chem 7: 03/14/23 09:00 03/14/23 09:00 Labs: Abnormal Lab Results - Last 24 Hours (Table) 03/14/23 03/14/23 Range/Units 09:00 09:00 D-Dimer 1.07 H (<0.60) mg/L FEU Potassium 3.1 L (3.5-5.1) mmol/L Creatinine 0.47 L (0.52-1.04) mg/dL
[2023-03-14] MEDS: CHOLECALCIFEROL 25 MCG (1000 IU) TABLET PO SCH (22:22)
[2023-03-14] MEDS: ENOXAPARIN 40 MG/0.4 ML SYRINGE SQ SCH (22:23)
[2023-03-14] MEDS: BENZONATATE 100 MG CAP PO PRN (23:48)
[2023-03-15] MEDS: methylPREDNISolone SOD SUCCI 125 MG/2 ML VIAL IV SCH ×3 (05:46→18:20)
[2023-03-15] MEDS: CHOLECALCIFEROL 25 MCG (1000 IU) TABLET PO SCH ×2 (08:13→21:42)
[2023-03-15] MEDS: ATORVASTATIN 10 MG TAB PO SCH (08:13)
[2023-03-15] MEDS: DILTIAZEM CD 240 MG CAP.ER.24H PO SCH ×2 (08:13→08:14)
[2023-03-15] MEDS: hydroCHLOROthiazide 12.5 MG CAP PO SCH (08:14)
[2023-03-15] MEDS: lisinopriL 20 MG TAB PO SCH (08:14)
[2023-03-15] MEDS: MELOXICAM 7.5 MG TAB PO SCH (08:14)
[2023-03-15] MEDS: MULTIVITAMINS, THERA 1 EACH TAB PO SCH (08:15)
[2023-03-15] MEDS: ENOXAPARIN 40 MG/0.4 ML SYRINGE SQ SCH (08:16)
[2023-03-15] MEDS: FORMOTEROL FUMARATE 20 MCG/2 ML NEBU INHALATION SCH ×2 (08:16→19:29)
[2023-03-15] MEDS: BUDESONIDE 1 MG/2 ML NEBU INHALATION SCH ×2 (08:20→19:30)
[2023-03-15] MEDS: IPRATROPIUM-ALBUTEROL 3 ML NEB INHALATION SCH ×4 (08:20→19:29)
[2023-03-15] MEDS: ASPIRIN 81 MG PO SCH (08:56)
[2023-03-15] MEDS ORDERED: ASPIRIN 325 MG TAB PO SCH (09:00)
[2023-03-15 09:24] LABS: Chol/HDL Ratio 2.32 Ratio; LDL Cholesterol,Calculated 54.5 mg/dL (0.0-131.0)
--- NOTE | 2023-03-15 10:30 | P.CRDCN ---
History of Present Illness History of present illness: HISTORY OF PRESENT ILLNESS: This is a 77-year-old female with a past medical history significant for hypertension, hyperlipidemia, COPD, asthma, and former nicotine dependence. Patient follows in the office with Dr. Caputo. We have been asked to see the patient in consultation for chest pain. Patient examined at the bedside. Patient presented to the emergency room with a chief complaint of shortness of breath and cough. She reports that she has been dealing with multiple bouts of bronchitis since October. She reports significant wheezing this morning. She reports as she had some burning in her chest yesterday when she came to the hospital. She denies any radiation of the pain. She denies any pain at the time of examination. She continues to report shortness of breath this morning. She is being followed by pulmonary medicine and receiving IV steroids and nebulizer treatments. * EKG reveals sinus mechanism with no signs of acute ischemia * Chest xray borderline heart size. Prominent dextroconvex scoliosis. No definite acute process. * Laboratory data: WBC 7.3. Hemoglobin 13.6. Platelet count 205. Sodium 138. Potassium 3.1. BUN 11. Creatinine 0.47. Magnesium 1.8. Troponin negative 3. ProBNP 210. * Current home cardiac medications include Cardizem 240 mg daily, Lipitor 10 mg daily * Most recent echocardiogram obtained in the office on 02/26/2023 reveals ejection fraction 55%, trace aortic regurgitation, mild aortic stenosis, mild mitral regurgitation, mild tricuspid regurgitation REVIEW OF SYSTEMS: At the time of my exam: CONSTITUTIONAL: Denies fever or chills. HEENT: Denies blurred vision, vision changes, or eye pain. Denies hemoptysis CARDIOVASCULAR: Denies chest pain. Denies orthopnea. Denies PND. Denies palpitations RESPIRATORY: Denies shortness of breath. GASTROINTESTINAL: Denies abdominal pain. Denies nausea or vomiting. HEMATOLOGIC: Denies bleeding disorders. GENITOURINARY: Denies any blood in urine. SKIN: Denies pruitis. Denies rash. PHYSICAL EXAM: VITAL SIGNS: Reviewed. GENERAL: Well-developed in no acute distress. HEENT: Head is normocephalic. Pupils are equal, round. Sclerae anicteric. Mucous membranes of the mouth are moist. Neck supple. No JVD or thyromegaly LUNGS: Respirations even and unlabored. Lungs with expiratory wheezing noted th roughout. Frequent coughing noted. HEART: Regular rate and rhythm. S1 and S2 heard. ABDOMEN: Soft. Nondistended. Nontender. EXTREMITIES: Normal range of motion. No clubbing or cyanosis. Peripheral pulses intact. Minimal bilateral lower extremity edema NEUROLOGIC: Awake and alert. Oriented x 3. ASSESSMENT: Shortness of breath Acute exacerbation of COPD Chest pain, likely secondary to above, no evidence of acute coronary syndrome Hypertension Hyperlipidemia History of asthma Former nicotine dependence PLAN: An acute coronary event has been ruled out Continue home cardiac medications Patient is receiving IV steroids per pulmonary No need to repeat echocardiogram as this was performed last month in the office Patient is already scheduled for outpatient Lexiscan stress test Patient to follow-up with Dr. Caputo post discharge Further recommendations pending patient's course Nurse practitioner note has been reviewed by physician. Signing provider agrees with the documented findings, assessment, and plan of care. Past Medical History Past Medical History: Asthma, COPD, Hypertension History of Any Multi-Drug Resistant Organisms: None Reported Past Surgical History: Appendectomy, Hysterectomy, Tonsillectomy Past Psychological History: No Psychological Hx Reported Smoking Status: Never smoker Past Alcohol Use History: None Reported Past Drug Use History: None Reported Medications and Allergies Home Medications Medication Instructions Recorded Confirmed Type Albuterol Inhaler [Ventolin Hfa 2 puff INHALATION RT-Q6H PRN 02/05/23 03/14/23 History Inhaler] Atorvastatin [Lipitor] 10 mg PO DAILY 02/05/23 03/14/23 History Cholecalciferol [Vitamin D3 (25 25 mcg PO BID 02/05/23 03/14/23 History Mcg = 1000 Iu)] Colon Probiotic 1 cap PO DAILY 02/05/23 03/14/23 History Fluticasone Propion/Salmeterol 1 puff INHALATION RT-BID 02/05/23 03/14/23 History [Fluticasone-Salmeterol 500-50] Indapamide [Lozol] 1.25 mg PO DAILY 02/05/23 03/14/23 History Meloxicam [Mobic] 15 mg PO DAILY 02/05/23 03/14/23 History Multivitamins, Thera [Multivitamin 1 tab PO DAILY 02/05/23 03/14/23 History (formulary)] Perindopril Erbumine [Aceon] 8 mg PO DAILY 02/05/23 03/14/23 History dilTIAZem HCL [dilTIAZem HCL 24Hr 240 mg PO DAILY 02/05/23 03/14/23 History ER (Xr)] oxyCODONE-APAP 5-325MG [Percocet 1 tab PO TID PRN 02/05/23 03/14/23 History 5-325 mg] Allergies Allergy/AdvReac Type Severity Reaction Status Date / Time clarithromycin Allergy Unknown Verified 03/14/23 11:40 Penicillins Allergy Unknown Verified 03/14/23 11:40 Physical Exam Vitals: Vital Signs Temp Pulse Resp BP Pulse Ox 03/15/23 08:30 96 18 03/15/23 08:21 92 18 03/15/23 08:18 95 03/15/23 08:00 98.2 F 94 18 155/82 94 L 03/15/23 06:00 98 18 146/76 94 L 03/15/23 02:41 102 H 18 94 L 03/14/23 22:26 101 H 18 147/73 93 L 03/14/23 20:25 108 H 03/14/23 20:15 98 03/14/23 20:00 105 H 18 131/73 93 L 03/14/23 18:05 98.5 F 102 H 19 140/79 93 L 03/14/23 16:49 100 18 03/14/23 16:38 94 18 03/14/23 16:34 105 H 22 168/82 95 03/14/23 13:23 81 16 03/14/23 13:15 98 03/14/23 13:13 80 18 Results 03/14/23 09:00 03/14/23 09:00 Cardiac Enzymes 03/14/23 03/14/23 Range/Units 12:20 14:56 Troponin I <0.012 <0.012 (0.000-0.034) ng/mL Lipids 03/14/23 Range/Units 09:00 Triglycerides 106.00 (0.00-149.00) mg/dL Cholesterol 133.00 (0.00-200.00) mg/dL HDL Cholesterol 57.30 (40.00-60.00) mg/dL Cholesterol/HDL Ratio 2.32 Ratio Current Medications Generic Name Dose Route Start Last Admin Trade Name Freq PRN Reason Stop Dose Admin Albuterol/Ipratropium 3 ml 03/14/23 12:00 03/15/23 08:20 Ipratropium-Albuterol 3 Ml Neb INHALATION 3 ml RT-QID [facility]ARD Administration Albuterol/Ipratropium 3 ml 03/14/23 11:24 Ipratropium-Albuterol 3 Ml Neb INHALATION RT-Q2H PRN Shortness Of Breath Or Wheezing Aspirin 81 mg 03/15/23 09:00 03/15/23 08:56 Aspirin 81 Mg PO Not Given DAILY [facility] Atorvastatin Calcium 10 mg 03/15/23 09:00 03/15/23 08:13 Atorvastatin 10 Mg Tab PO 10 mg DAILY [facility] Administration Benzonatate 200 mg 03/14/23 23:44 03/14/23 23:48 Benzonatate 100 Mg Cap PO 200 mg TID PRN Administration Cough Budesonide 1 mg 03/15/23 08:00 03/15/23 08:20 Budesonide 1 Mg/2 Ml Nebu INHALATION 1 mg RT-BID RICHARD Administration Cholecalciferol 25 mcg 03/14/23 21:00 03/15/23 08:13 Cholecalciferol 25 Mcg (1000 Iu) Tablet PO 25 mcg BID RICHARD Administration Diltiazem HCl 240 mg 03/15/23 09:00 03/15/23 08:13 Diltiazem Cd 240 Mg Cap.Er.24h PO 240 mg DAILY [facility] Administration Enoxaparin Sodium 40 mg 03/14/23 21:30 03/15/23 08:16 Enoxaparin 40 Mg/0.4 Ml Syringe SQ 40 mg DAILY [facility] Administration Formoterol Fumarate 20 mcg 03/15/23 08:00 03/15/23 08:16 Formoterol Fumarate 20 Mcg/2 Ml Nebu INHALATION Not Given RT-BID [facility] Hydrochlorothiazide 12.5 mg 03/15/23 09:00 03/15/23 08:14 Hydrochlorothiazide 12.5 Mg Cap PO 12.5 mg DAILY [facility] Administration Lisinopril 20 mg 03/15/23 09:00 03/15/23 08:14 Lisinopril 20 Mg Tab PO 20 mg DAILY [facility] Administration Meloxicam 15 mg 03/15/23 09:00 03/15/23 08:14 Meloxicam 7.5 Mg Tab PO 15 mg DAILY [facility] Administration Methylprednisolone Sodium Succinate 60 mg 03/14/23 12:00 03/15/23 05:46 Methylprednisolone Sod Succi 125 Mg/2 Ml Vial IV 60 mg Q6HR [facility] Administration Multivitamins 1 each 03/15/23 09:00 03/15/23 08:15 Multivitamins, Thera 1 Each Tab PO 1 each DAILY [facility] Administration Naloxone HCl 0.2 mg 03/14/23 11:24 Naloxone 0.4 Mg/Ml 1 Ml Vial IVP Q2M PRN Opioid Reversal Nitroglycerin 0.4 mg 03/14/23 11:24 Nitroglycerin Sl Tabs 0.4 Mg Tab SUBLINGUAL Q5M PRN Chest Pain Oxycodone/Acetaminophen 1 each 03/14/23 14:05 03/14/23 19:58 Oxycodone-Apap 5-325mg 1 Each Tab PO 1 each TID PRN Administration Pain 03/14/23 09:00 03/14/23 09:00
[2023-03-15] MEDS: BENZONATATE 100 MG CAP PO PRN ×2 (11:14→16:43)
--- NOTE | 2023-03-15 13:40 | P.PN ---
Subjective Progress Note Date: 03/15/23 This is a very pleasant 77-year-old female patient with history of hypertension, hyperlipidemia, mild intermittent chronic bronchial asthma and is maintained on Wixela and albuterol in the outpatient setting. She presented to the emergency room earlier this morning with a 4 day history of increasing shortness of breath, cough, burning in the middle of her chest chest tightness and wheezing. No fever chills. No productive cough. No hemoptysis. Chest x-ray revealed no acute pulmonary process. CT angiogram revealed no evidence of pulmonary embolism. No acute thoracic process. White count 7.3. Hemoglobin 13.6. Platelets 205. D-dimer 1.07. Sodium 138. Potassium 3.1. Bicarb 26. BUN 11. Creatinine 0.47. Troponin negative 2. ProBNP 212. Influenza screen negative. RSV screen negative. COVID-19 screen negative. She's been initiated on DuoNeb inhalations, Symbicort, IV Solu-Medrol. She is seen today in consultation in the emergency department. She is currently sitting up on the stretcher. Awake and alert in no acute distress. Maintaining good O2 saturations in the 90s on room air. She's been afebrile. Hemodynamically stable. The patient is seen today 03/15/2023 in follow-up in the emergency department. She is currently sitting up in bed. Awake and alert in no acute distress. She is continuing to maintain O2 saturations in the 90s on 2 L/m per nasal cannula. She is somewhat bronchospastic and wheezy today though. Still with some cough and congestion. She is continued on DuoNeb inhalations, Pulmicort and Perforomist inhalations, IV Solu-Medrol. Objective - Vital Signs Vital signs: Vital Signs Temp 98.2 F 03/15/23 11:00 Pulse 82 03/15/23 12:07 Resp 18 03/15/23 12:07 BP 137/77 03/15/23 11:00 Pulse Ox 93 L 03/15/23 11:00 FiO2 Intake & Output 03/14/23 03/15/23 03/15/23 18:59 06:59 18:59 Weight 76.657 kg - Exam GENERAL EXAM: Alert, pleasant 77-year-old female, on 2 L nasal cannula, comfortable in no apparent distress. HEAD: Normocephalic. EYES: Normal reaction of pupils, equal size. NOSE: Clear with pink turbinates. THROAT: No erythema or exudates. NECK: No masses, no JVD. CHEST: No chest wall deformity. LUNGS: Equal air entry with bilateral end expiratory wheeze, diminished. CVS: S1 and S2 normal with no audible murmur, regular rhythm. ABDOMEN: No hepatosplenomegaly, normal bowel sounds, no guarding or rigidity. SPINE: No scoliosis or deformity SKIN: No rashes CENTRAL NERVOUS SYSTEM: No focal deficits, tone is normal in all 4 extremities. EXTREMITIES: There is no peripheral edema. No clubbing, no cyanosis. Peripheral pulses are intact. - Labs CBC & Chem 7: 03/14/23 09:00 03/14/23 09:00 Assessment and Plan Assessment: Acute exacerbation of mild intermittent chronic bronchial asthma. No evidence of pneumonia. RSV screen negative. Influenza screen negative. COVID-19 history negative. History of hypertension Hyperlipidemia Very remote smoking history Plan: The patient was seen and evaluated Medications reviewed Continue the current treatment plan Titrate the FiO2 as tolerated We will continue to follow I have personally seen and examined the patient, performed the documentation and the assessment and plan as written. Number of minutes spent on the visit: 10.
--- NOTE | 2023-03-15 17:17 | P.PN ---
Progress Note - Text Progress Note Date: 03/15/23 Chief Complaint: Short of breath This is a pleasant 77-year-old patient, follows with Dr. Alcaraz. Patient also follows with Dr. Arnett from pulmonary and Dr. Caputo from cardiology. Dr. Caputo is following the patient outpatient for cardiac symptoms Patient now presents with increasing shortness of breath this morning. Some chills. No fever. Appetite is fair. No cough. Also felt a burning sensation in the chest. Did not radiate anywhere. No dizziness or lightheadedness. After getting breathing treatments feeling better. March 15: Seen by cayetano Garcia. Not felt to be a cardiac issue. Remains short of breath and wheezing. Eating fair. Active Medications Albuterol/Ipratropium (Ipratropium-Albuterol 3 Ml Neb) 3 ml INHALATION RT-QID [facility] Last Admin: 03/15/23 14:55 Dose: 3 ml Albuterol/Ipratropium (Ipratropium-Albuterol 3 Ml Neb) 3 ml INHALATION RT-Q2H PRN PRN Reason: Shortness Of Breath Or Wheezing Aspirin (Aspirin 81 Mg) 81 mg PO DAILY [facility] Last Admin: 03/15/23 08:56 Dose: Not Given Atorvastatin Calcium (Atorvastatin 10 Mg Tab) 10 mg PO DAILY [facility] Last Admin: 03/15/23 08:13 Dose: 10 mg Benzonatate (Benzonatate 100 Mg Cap) 200 mg PO TID PRN PRN Reason: Cough Last Admin: 03/15/23 16:43 Dose: 200 mg Budesonide (Budesonide 1 Mg/2 Ml Nebu) 1 mg INHALATION RT-BID [facility] Last Admin: 03/15/23 08:20 Dose: 1 mg Cholecalciferol (Cholecalciferol 25 Mcg (1000 Iu) Tablet) 25 mcg PO BID [facility] Last Admin: 03/15/23 08:13 Dose: 25 mcg Diltiazem HCl (Diltiazem Cd 240 Mg Cap.Er.24h) 240 mg PO DAILY [facility] Last Admin: 03/15/23 08:13 Dose: 240 mg Enoxaparin Sodium (Enoxaparin 40 Mg/0.4 Ml Syringe) 40 mg SQ DAILY [facility] Last Admin: 03/15/23 08:16 Dose: 40 mg Formoterol Fumarate (Formoterol Fumarate 20 Mcg/2 Ml Nebu) 20 mcg INHALATION RT-BID [facility] Last Admin: 03/15/23 08:16 Dose: Not Given Hydrochlorothiazide (Hydrochlorothiazide 12.5 Mg Cap) 12.5 mg PO DAILY [facility] Last Admin: 03/15/23 08:14 Dose: 12.5 mg Lisinopril (Lisinopril 20 Mg Tab) 20 mg PO DAILY [facility] Last Admin: 03/15/23 08:14 Dose: 20 mg Meloxicam (Meloxicam 7.5 Mg Tab) 15 mg PO DAILY [facility] Last Admin: 03/15/23 08:14 Dose: 15 mg Methylprednisolone Sodium Succinate (Methylprednisolone Sod Succi 125 Mg/2 Ml Vial) 60 mg IV Q6HR [facility] Last Admin: 03/15/23 11:13 Dose: 60 mg Multivitamins (Multivitamins, Thera 1 Each Tab) 1 each PO DAILY [facility] Last Admin: 03/15/23 08:15 Dose: 1 each Naloxone HCl (Naloxone 0.4 Mg/Ml 1 Ml Vial) 0.2 mg IVP Q2M PRN PRN Reason: Opioid Reversal Nitroglycerin (Nitroglycerin Sl Tabs 0.4 Mg Tab) 0.4 mg SUBLINGUAL Q5M PRN PRN Reason: Chest Pain Oxycodone/Acetaminophen (Oxycodone-Apap 5-325mg 1 Each Tab) 1 each PO TID PRN PRN Reason: Pain Last Admin: 03/14/23 19:58 Dose: 1 each Past medical history to include: Ex-smoker, lives with her sons. No alcohol. Physical examination: VITAL SIGNS: 98, 88, 18, 131/64, 95% room air GENERAL: BMI 31.9, sitting up short of breath. EYES: Pupils equal. Conjunctiva normal. HEENT: External appearance of nose and ears normal, oral cavity grossly normal. NECK: JVD not raised; masses not palpable. HEART: First and second heart sounds are normal; no edema. LUNGS: Respiratory rate increased; trees breath sounds, wheezing. ABDOMEN: Soft, nontender, liver spleen not palpable, no masses palpable. PSYCH: Alert and oriented x3; mood and affect anxiousl. MUSCULOSKELETAL:No Clubbing/cyanosis;muscles-grossly intact. OA INVESTIGATIONS, reviewed in the clinical context: White count 7.3 hemoglobin 13.6 platelets 205 sodium 138 potassium 3.1 BUN 11 creatinine 0.47 Troponin I less than 0.0123 proBNP 212 Influenza type A, diabetes, honestly, COVID-19: Not detected EKG tracing personally reviewed by me-normal sinus rhythm. Chest CTA: No PE Chest x-ray film personally reviewed by me-borderline cardiomegaly Assessment and plan: -Acute COPD exacerbation in a previous smoker slow to respond DuoNeb. IV Solu-Medrol. Follow with Dr. Chisholm -Anterior chest fall burning sensation. Seen by cardiology. No further workup. 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 Continue current medications.
[2023-03-15] MEDS: oxyCODONE-APAP 5-325MG 1 EACH TAB PO PRN (21:42)
[2023-03-15] MEDS: LORATADINE 10 MG TAB PO SCH (21:42)
[2023-03-16] MEDS: methylPREDNISolone SOD SUCCI 125 MG/2 ML VIAL IV SCH ×3 (00:38→12:46)
[2023-03-16] MEDS: FORMOTEROL FUMARATE 20 MCG/2 ML NEBU INHALATION SCH ×2 (08:19→19:33)
[2023-03-16] MEDS: IPRATROPIUM-ALBUTEROL 3 ML NEB INHALATION SCH ×4 (08:19→19:33)
[2023-03-16] MEDS: BUDESONIDE 1 MG/2 ML NEBU INHALATION SCH ×2 (08:19→19:33)
[2023-03-16] MEDS: hydroCHLOROthiazide 12.5 MG CAP PO SCH (08:40)
[2023-03-16] MEDS: ATORVASTATIN 10 MG TAB PO SCH (08:40)
[2023-03-16] MEDS: LORATADINE 10 MG TAB PO SCH ×2 (08:40→20:56)
[2023-03-16] MEDS: lisinopriL 20 MG TAB PO SCH (08:40)
[2023-03-16] MEDS: DILTIAZEM CD 240 MG CAP.ER.24H PO SCH (08:40)
[2023-03-16] MEDS: MELOXICAM 7.5 MG TAB PO SCH (08:41)
[2023-03-16] MEDS: ASPIRIN 81 MG PO SCH (08:42)
[2023-03-16] MEDS: CHOLECALCIFEROL 25 MCG (1000 IU) TABLET PO SCH ×2 (08:42→20:56)
[2023-03-16] MEDS: ENOXAPARIN 40 MG/0.4 ML SYRINGE SQ SCH (08:44)
[2023-03-16] MEDS: MULTIVITAMINS, THERA 1 EACH TAB PO SCH (08:45)
[2023-03-16] MEDS: BENZONATATE 100 MG CAP PO PRN ×2 (08:45→18:22)
[2023-03-16] MEDS: oxyCODONE-APAP 5-325MG 1 EACH TAB PO PRN ×2 (08:53→17:52)
--- NOTE | 2023-03-16 10:06 | P.PN ---
Subjective HISTORY OF PRESENT ILLNESS: This is a 77-year-old female with a past medical history significant for hypertension, hyperlipidemia, COPD, asthma, and former nicotine dependence. Patient follows in the office with Dr. Caputo. We have been asked to see the patient in consultation for chest pain. Patient examined at the bedside. Patient presented to the emergency room with a chief complaint of shortness of breath and cough. She reports that she has been dealing with multiple bouts of bronchitis since October. She reports significant wheezing this morning. She reports as she had some burning in her chest yesterday when she came to the hospital. She denies any radiation of the pain. She denies any pain at the time of examination. She continues to report shortness of breath this morning. She is being followed by pulmonary medicine and receiving IV steroids and nebulizer treatments. * EKG reveals sinus mechanism with no signs of acute ischemia * Chest xray borderline heart size. Prominent dextroconvex scoliosis. No definite acute process. * Laboratory data: WBC 7.3. Hemoglobin 13.6. Platelet count 205. Sodium 138. Potassium 3.1. BUN 11. Creatinine 0.47. Magnesium 1.8. Troponin negative 3. ProBNP 210. * Current home cardiac medications include Cardizem 240 mg daily, Lipitor 10 mg daily * Most recent echocardiogram obtained in the office on 02/26/2023 reveals ejection fraction 55%, trace aortic regurgitation, mild aortic stenosis, mild mitral regurgitation, mild tricuspid regurgitation 6/ Patient seen and examined. Patient still with some shortness breath however cough has improved and wheezing somewhat improved. Troponins noted to be normal and BNP normal. Denies any chest pain or pressure. PHYSICAL EXAM: VITAL SIGNS: Reviewed. GENERAL: Well-developed in no acute distress. HEENT: Head is normocephalic. Pupils are equal, round. Sclerae anicteric. Mucous membranes of the mouth are moist. Neck supple. No JVD or thyromegaly LUNGS: Respirations even and unlabored. Lungs with expiratory wheezing noted throughout. Frequent coughing noted. HEART: Regular rate and rhythm. S1 and S2 heard. ABDOMEN: Soft. Nondistended. Nontender. EXTREMITIES: Normal range of motion. No clubbing or cyanosis. Peripheral pulses intact. Minimal bilateral lower extremity edema NEUROLOGIC: Awake and alert. Oriented x 3. ASSESSMENT: Shortness of breath Acute exacerbation of COPD Chest pain, likely secondary to above, no evidence of acute coronary syndrome Hypertension Hyperlipidemia History of asthma Former nicotine dependence PLAN: An acute coronary event has been ruled out Continue home cardiac medications Patient is receiving IV steroids per pulmonary No need to repeat echocardiogram as this was performed last month in the office Patient is already scheduled for outpatient Lexiscan stress test Patient to follow-up with Dr. Caputo post discharge Appears to be improving from a pulmonary standpoint with steroids and pulmonary treatment. No evidence of any cardiac source for her symptoms. Follow-up outpatient and see patient in 2-3 weeks after stress test outpatient. Objective - Vital Signs Vital signs: Vital Signs Temp 97.7 F 03/16/23 07:00 Pulse 92 03/16/23 08:45 Resp 18 03/16/23 08:00 BP 162/83 03/16/23 07:00 Pulse Ox 94 L 03/16/23 08:19 FiO2 21 03/16/23 08:19 Intake & Output 03/15/23 03/16/23 03/16/23 18:59 06:59 18:59 Intake Total 240 Balance 240 Weight 76.657 kg Intake: Oral 240 Other: # Voids 1 - Labs CBC & Chem 7: 03/14/23 09:00 03/14/23 09:00
[2023-03-16] MEDS ORDERED: POTASSIUM CHLORIDE ER 20 MEQ TAB.ER PO STA ×2 (11:48→14:22)
--- NOTE | 2023-03-16 12:37 | P.PN ---
Subjective Progress Note Date: 03/16/23 This is a very pleasant 77-year-old female patient with history of hypertension, hyperlipidemia, mild intermittent chronic bronchial asthma and is maintained on Wixela and albuterol in the outpatient setting. She presented to the emergency room earlier this morning with a 4 day history of increasing shortness of breath, cough, burning in the middle of her chest chest tightness and wheezing. No fever chills. No productive cough. No hemoptysis. Chest x-ray revealed no acute pulmonary process. CT angiogram revealed no evidence of pulmonary embolism. No acute thoracic process. White count 7.3. Hemoglobin 13.6. Platelets 205. D-dimer 1.07. Sodium 138. Potassium 3.1. Bicarb 26. BUN 11. Creatinine 0.47. Troponin negative 2. ProBNP 212. Influenza screen negative. RSV screen negative. COVID-19 screen negative. She's been initiated on DuoNeb inhalations, Symbicort, IV Solu-Medrol. She is seen today in consultation in the emergency department. She is currently sitting up on the stretcher. Awake and alert in no acute distress. Maintaining good O2 saturations in the 90s on room air. She's been afebrile. Hemodynamically stable. The patient is seen today 03/15/2023 in follow-up in the emergency department. She is currently sitting up in bed. Awake and alert in no acute distress. She is continuing to maintain O2 saturations in the 90s on 2 L/m per nasal cannula. She is somewhat bronchospastic and wheezy today though. Still with some cough and congestion. She is continued on DuoNeb inhalations, Pulmicort and Perforomist inhalations, IV Solu-Medrol. The patient is seen today 03/16/2023 in follow-up in the regular medical floor. She is currently sitting up in bed. Awake and alert in no acute distress. He is still having issues with cough and congestion. Still wheezing. Maintaining O2 saturations in the 90s on room air. She remains on DuoNeb inhalations, Pulmicort and Perforomist inhalations, IV Solu-Medrol. No new labs today. Objective - Vital Signs Vital signs: Vital Signs Temp 97.7 F 03/16/23 07:00 Pulse 96 03/16/23 11:45 Resp 18 03/16/23 08:00 BP 162/83 03/16/23 07:00 Pulse Ox 94 L 03/16/23 08:19 FiO2 21 03/16/23 08:19 Intake & Output 03/15/23 03/16/23 03/16/23 18:59 06:59 18:59 Intake Total 240 Balance 240 Weight 76.657 kg Intake: Oral 240 Other: # Voids 1 - Exam GENERAL EXAM: Alert, pleasant 77-year-old female, sitting up at the bedside, on room air, comfortable in no apparent distress. HEAD: Normocephalic. EYES: Normal reaction of pupils, equal size. NOSE: Clear with pink turbinates. THROAT: No erythema or exudates. NECK: No masses, no JVD. CHEST: No chest wall deformity. LUNGS: Equal air entry with bilateral end expiratory wheeze, diminished. CVS: S1 and S2 normal with no audible murmur, regular rhythm. ABDOMEN: No hepatosplenomegaly, normal bowel sounds, no guarding or rigidity. SPINE: No scoliosis or deformity SKIN: No rashes CENTRAL NERVOUS SYSTEM: No focal deficits, tone is normal in all 4 extremities. EXTREMITIES: There is no peripheral edema. No clubbing, no cyanosis. Peripheral pulses are intact. - Labs CBC & Chem 7: 03/14/23 09:00 03/14/23 09:00 Assessment and Plan Assessment: Acute exacerbation of mild intermittent chronic bronchial asthma. No evidence of pneumonia. RSV screen negative. Influenza screen negative. COVID-19 history negative. History of hypertension Hyperlipidemia Very remote smoking history Plan: The patient was seen and evaluated Medications reviewed Not quite back to her baseline Continue the current treatment plan Probable discharge in the a.m. We will continue to follow I have personally seen and examined the patient, performed the documentation and the assessment and plan as written. Number of minutes spent on the visit: 10.
[2023-03-16 13:03] LABS: African American GFR (CKD) >90 (>60 ml/min/1.73 sqM); Anion Gap 11 mmol/L; Blood Urea Nitrogen 20 mg/dL (7-17); Calcium 9.4 mg/dL (8.4-10.2); Carbon Dioxide 27 mmol/L (22-30); Chloride 96 mmol/L (98-107); Glucose 195 mg/dL (74-99); Non-African American GFR(CKD) 88 (>60 ml/min/1.73 sqM); Potassium 2.9 mmol/L (3.5-5.1); Sodium 134 mmol/L (137-145)
--- NOTE | 2023-03-16 14:24 | P.PN ---
Progress Note - Text Progress Note Date: 03/16/23 Chief Complaint: Short of breath This is a pleasant 77-year-old patient, follows with Dr. Alcaraz. Patient also follows with Dr. Arnett from pulmonary and Dr. Caputo from cardiology. Dr. Caputo is following the patient outpatient for cardiac symptoms Patient now presents with increasing shortness of breath this morning. Some chills. No fever. Appetite is fair. No cough. Also felt a burning sensation in the chest. Did not radiate anywhere. No dizziness or lightheadedness. After getting breathing treatments feeling better. March 15: Seen by cardiology Not felt to be a cardiac issue. Remains short of breath and wheezing. Eating fair. March 16: Wheezing and short of breath better. Still present. Oral intake good. Up to the bathroom. Remains on IV Solu-Medrol. Bronchodilators. Nebulized Perforomist and Pulmicort. Active Medications Albuterol/Ipratropium (Ipratropium-Albuterol 3 Ml Neb) 3 ml INHALATION RT-QID [facility] Last Admin: 03/16/23 11:33 Dose: 3 ml Albuterol/Ipratropium (Ipratropium-Albuterol 3 Ml Neb) 3 ml INHALATION RT-Q2H PRN PRN Reason: Shortness Of Breath Or Wheezing Aspirin (Aspirin 81 Mg) 81 mg PO DAILY [facility] Last Admin: 03/16/23 08:42 Dose: 81 mg Atorvastatin Calcium (Atorvastatin 10 Mg Tab) 10 mg PO DAILY [facility] Last Admin: 03/16/23 08:40 Dose: 10 mg Benzonatate (Benzonatate 100 Mg Cap) 200 mg PO TID PRN PRN Reason: Cough Last Admin: 03/16/23 08:45 Dose: 200 mg Budesonide (Budesonide 1 Mg/2 Ml Nebu) 1 mg INHALATION RT-BID [facility] Last Admin: 03/16/23 08:19 Dose: 1 mg Cholecalciferol (Cholecalciferol 25 Mcg (1000 Iu) Tablet) 25 mcg PO BID [facility] Last Admin: 03/16/23 08:42 Dose: 25 mcg Diltiazem HCl (Diltiazem Cd 240 Mg Cap.Er.24h) 240 mg PO DAILY [facility] Last Admin: 03/16/23 08:40 Dose: 240 mg Enoxaparin Sodium (Enoxaparin 40 Mg/0.4 Ml Syringe) 40 mg SQ DAILY [facility] Last Admin: 03/16/23 08:44 Dose: 40 mg Formoterol Fumarate (Formoterol Fumarate 20 Mcg/2 Ml Nebu) 20 mcg INHALATION RT-BID [facility] Last Admin: 03/16/23 08:19 Dose: 20 mcg Hydrochlorothiazide (Hydrochlorothiazide 12.5 Mg Cap) 12.5 mg PO DAILY [facility] Last Admin: 03/16/23 08:40 Dose: 12.5 mg Lisinopril (Lisinopril 20 Mg Tab) 20 mg PO DAILY [facility] Last Admin: 03/16/23 08:40 Dose: 20 mg Loratadine (Loratadine 10 Mg Tab) 5 mg PO Q12HR [facility] Last Admin: 03/16/23 08:40 Dose: 5 mg Meloxicam (Meloxicam 7.5 Mg Tab) 15 mg PO DAILY [facility] Last Admin: 03/16/23 08:41 Dose: 15 mg Multivitamins (Multivitamins, Thera 1 Each Tab) 1 each PO DAILY [facility] Last Admin: 03/16/23 08:45 Dose: 1 each Naloxone HCl (Naloxone 0.4 Mg/Ml 1 Ml Vial) 0.2 mg IVP Q2M PRN PRN Reason: Opioid Reversal Nitroglycerin (Nitroglycerin Sl Tabs 0.4 Mg Tab) 0.4 mg SUBLINGUAL Q5M PRN PRN Reason: Chest Pain Oxycodone/Acetaminophen (Oxycodone-Apap 5-325mg 1 Each Tab) 1 each PO TID PRN PRN Reason: Pain Last Admin: 03/16/23 08:53 Dose: 1 each Past medical history to include: Ex-smoker, lives with her sons. No alcohol. Physical examination: VITAL SIGNS: 97.7, 96, 18, 170-83, 94% room air GENERAL: BMI 31.9, sitting up short of breath. EYES: Pupils equal. Conjunctiva normal. HEENT: External appearance of nose and ears normal, oral cavity grossly normal. NECK: JVD not raised; masses not palpable. HEART: First and second heart sounds are normal; no edema. LUNGS: Respiratory rate increased; trees breath sounds, decreased wheezing. ABDOMEN: Soft, nontender, liver spleen not palpable, no masses palpable. PSYCH: Alert and oriented x3; mood and affect anxiousl. MUSCULOSKELETAL:No Clubbing/cyanosis;muscles-grossly intact. OA INVESTIGATIONS, reviewed in the clinical context: March 16: Sodium 134 potassium 2.9 BUN 20 creatinine 0.61 White count 7.3 hemoglobin 13.6 platelets 205 sodium 138 potassium 3.1 BUN 11 creatinine 0.47 Troponin I less than 0.0123 proBNP 212 Influenza type A, diabetes, honestly, COVID-19: Not detected EKG tracing personally reviewed by me-normal sinus rhythm. Chest CTA: No PE Chest x-ray film personally reviewed by me-borderline cardiomegaly Assessment and plan: -Acute COPD exacerbation in a previous smoker slow to respond DuoNeb. IV Solu-Medrol 40 mg every 8. Follow with Dr. Chisholm -Anterior chest fall burning sensation. Probably musculoskeletal Seen by cardiology. No further workup. 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 Repeat labs in the morning. Continue current medications. Discussed.
[2023-03-16] MEDS: methylPREDNISolone SOD SUCCI 40 MG/ML 1 ML VIAL IV SCH (20:57)
[2023-03-17] MEDS: methylPREDNISolone SOD SUCCI 40 MG/ML 1 ML VIAL IV SCH (04:37)
[2023-03-17] MEDS: oxyCODONE-APAP 5-325MG 1 EACH TAB PO PRN ×3 (04:40→20:47)
[2023-03-17 07:29] LABS: African American GFR (CKD) >90 (>60 ml/min/1.73 sqM); Anion Gap 6 mmol/L; Blood Urea Nitrogen 19 mg/dL (7-17); Carbon Dioxide 30 mmol/L (22-30); Chloride 100 mmol/L (98-107); Glucose 156 mg/dL (74-99); Non-African American GFR(CKD) 90 (>60 ml/min/1.73 sqM); Sodium 136 mmol/L (137-145)
[2023-03-17] MEDS: BUDESONIDE 1 MG/2 ML NEBU INHALATION SCH ×2 (07:29→19:34)
[2023-03-17] MEDS: FORMOTEROL FUMARATE 20 MCG/2 ML NEBU INHALATION SCH ×2 (07:29→19:34)
[2023-03-17] MEDS: IPRATROPIUM-ALBUTEROL 3 ML NEB INHALATION SCH ×4 (07:30→19:34)
[2023-03-17] MEDS: LORATADINE 10 MG TAB PO SCH ×2 (08:17→20:43)
[2023-03-17] MEDS: ATORVASTATIN 10 MG TAB PO SCH (08:17)
[2023-03-17] MEDS: MULTIVITAMINS, THERA 1 EACH TAB PO SCH (08:17)
[2023-03-17] MEDS: MELOXICAM 7.5 MG TAB PO SCH (08:17)
[2023-03-17] MEDS: CHOLECALCIFEROL 25 MCG (1000 IU) TABLET PO SCH ×2 (08:17→20:43)
[2023-03-17] MEDS: hydroCHLOROthiazide 12.5 MG CAP PO SCH (08:17)
[2023-03-17] MEDS: ENOXAPARIN 40 MG/0.4 ML SYRINGE SQ SCH (08:18)
[2023-03-17] MEDS: DILTIAZEM CD 240 MG CAP.ER.24H PO SCH (08:18)
[2023-03-17] MEDS: ASPIRIN 81 MG PO SCH (08:18)
[2023-03-17] MEDS: lisinopriL 20 MG TAB PO SCH (08:18)
[2023-03-17] MEDS: BENZONATATE 100 MG CAP PO PRN ×2 (08:55→20:43)
[2023-03-17] MEDS: LEVOFLOXACIN 500 MG TAB PO SCH (08:55)
--- NOTE | 2023-03-17 10:54 | P.PN ---
Subjective Progress Note Date: 03/17/23 This is a very pleasant 77-year-old female patient with history of hypertension, hyperlipidemia, mild intermittent chronic bronchial asthma and is maintained on Wixela and albuterol in the outpatient setting. She presented to the emergency room earlier this morning with a 4 day history of increasing shortness of breath, cough, burning in the middle of her chest chest tightness and wheezing. No fever chills. No productive cough. No hemoptysis. Chest x-ray revealed no acute pulmonary process. CT angiogram revealed no evidence of pulmonary embolism. No acute thoracic process. White count 7.3. Hemoglobin 13.6. Platelets 205. D-dimer 1.07. Sodium 138. Potassium 3.1. Bicarb 26. BUN 11. Creatinine 0.47. Troponin negative 2. ProBNP 212. Influenza screen negative. RSV screen negative. COVID-19 screen negative. She's been initiated on DuoNeb inhalations, Symbicort, IV Solu-Medrol. She is seen today in consultation in the emergency department. She is currently sitting up on the stretcher. Awake and alert in no acute distress. Maintaining good O2 saturations in the 90s on room air. She's been afebrile. Hemodynamically stable. The patient is seen today 03/15/2023 in follow-up in the emergency department. She is currently sitting up in bed. Awake and alert in no acute distress. She is continuing to maintain O2 saturations in the 90s on 2 L/m per nasal cannula. She is somewhat bronchospastic and wheezy today though. Still with some cough and congestion. She is continued on DuoNeb inhalations, Pulmicort and Perforomist inhalations, IV Solu-Medrol. The patient is seen today 03/16/2023 in follow-up in the regular medical floor. She is currently sitting up in bed. Awake and alert in no acute distress. He is still having issues with cough and congestion. Still wheezing. Maintaining O2 saturations in the 90s on room air. She remains on DuoNeb inhalations, Pulmicort and Perforomist inhalations, IV Solu-Medrol. No new labs today. The patient is seen today 03/17/2023 in follow-up on the regular medical floor. She remains awake and alert in no acute distress. She continues to have some wheezing. Continues to have nonproductive cough. She is maintaining good O2 saturations in the 90s on room air. Sodium 136. Potassium 4.0. Bicarb 30. BUN 19. Creatinine 0.57. Glucose 156. She is continued on DuoNeb inhalations, Pulmicort and Perforomist inhalations, Solu-Medrol. Antibiotics in the form of Levaquin. Lovenox for DVT prophylaxis. Objective - Vital Signs Vital signs: Vital Signs Temp 98.3 F 03/17/23 07:00 Pulse 74 03/17/23 08:00 Resp 18 03/17/23 08:00 BP 153/83 03/17/23 07:00 Pulse Ox 94 L 03/17/23 07:30 FiO2 21 03/17/23 07:30 Intake & Output 03/16/23 03/17/23 03/17/23 18:59 06:59 18:59 Intake Total 240 200 Balance 240 200 Intake: Oral 240 200 Other: # Voids 4 1 - Exam GENERAL EXAM: Alert, pleasant 77-year-old female, on room air, comfortable in no apparent distress. HEAD: Normocephalic. EYES: Normal reaction of pupils, equal size. NOSE: Clear with pink turbinates. THROAT: No erythema or exudates. NECK: No masses, no JVD. CHEST: No chest wall deformity. LUNGS: Equal air entry with bilateral end expiratory wheeze, diminished. CVS: S1 and S2 normal with no audible murmur, regular rhythm. ABDOMEN: No hepatosplenomegaly, normal bowel sounds, no guarding or rigidity. SPINE: No scoliosis or deformity SKIN: No rashes CENTRAL NERVOUS SYSTEM: No focal deficits, tone is normal in all 4 extremities. EXTREMITIES: There is no peripheral edema. No clubbing, no cyanosis. Peripheral pulses are intact. - Labs CBC & Chem 7: 03/14/23 09:00 03/17/23 06:36 Labs: Abnormal Lab Results - Last 24 Hours (Table) 03/16/23 03/17/23 Range/Units 12:16 06:36 Sodium 134 L 136 L (137-145) mmol/L Potassium 2.9 L (3.5-5.1) mmol/L Chloride 96 L (98-107) mmol/L BUN 20 H 19 H (7-17) mg/dL Glucose 195 H 156 H (74-99) mg/dL Assessment and Plan Assessment: Acute exacerbation of mild intermittent chronic bronchial asthma complicated by purulent tracheobronchitis. No evidence of pneumonia. RSV screen negative. Influenza screen negative. COVID-19 history negative. History of hypertension Hyperlipidemia Very remote smoking history Plan: The patient was seen and evaluated Medications and labs reviewed Procalcitonin pending Continued on Levaquin for now Not quite back to her baseline Increased Solu-Medrol to 60 mg every 6 hours We will continue to follow I have personally seen and examined the patient, performed the documentation and the assessment and plan as written. Number of minutes spent on the visit: 10.
[2023-03-17] MEDS: methylPREDNISolone SOD SUCCI 125 MG/2 ML VIAL IV SCH ×2 (11:54→17:58)
--- NOTE | 2023-03-17 17:35 | P.PN ---
Progress Note - Text Progress Note Date: 03/17/23 Chief Complaint: Short of breath This is a pleasant 77-year-old patient, follows with Dr. Alcaraz. Patient also follows with Dr. Arnett from pulmonary and Dr. Caputo from cardiology. Dr. Caputo is following the patient outpatient for cardiac symptoms Patient now presents with increasing shortness of breath this morning. Some chills. No fever. Appetite is fair. No cough. Also felt a burning sensation in the chest. Did not radiate anywhere. No dizziness or lightheadedness. After getting breathing treatments feeling better. March 15: Seen by cardiology Not felt to be a cardiac issue. Remains short of breath and wheezing. Eating fair. March 16: Wheezing and short of breath better. Still present. Oral intake good. Up to the bathroom. Remains on IV Solu-Medrol. Bronchodilators. Nebulized Perforomist and Pulmicort. March 17: Still having wheezing and shortness of breath up to the bathroom. Continued on Solu-Medrol bronchodilators. IV Solu-Medrol dose increased. Active Medications Albuterol/Ipratropium (Ipratropium-Albuterol 3 Ml Neb) 3 ml INHALATION RT-QID [facility] Last Admin: 03/17/23 15:13 Dose: 3 ml Albuterol/Ipratropium (Ipratropium-Albuterol 3 Ml Neb) 3 ml INHALATION RT-Q2H PRN PRN Reason: Shortness Of Breath Or Wheezing Aspirin (Aspirin 81 Mg) 81 mg PO DAILY [facility] Last Admin: 03/17/23 08:18 Dose: 81 mg Atorvastatin Calcium (Atorvastatin 10 Mg Tab) 10 mg PO DAILY [facility] Last Admin: 03/17/23 08:17 Dose: 10 mg Benzonatate (Benzonatate 100 Mg Cap) 200 mg PO TID PRN PRN Reason: Cough Last Admin: 03/17/23 08:55 Dose: 200 mg Budesonide (Budesonide 1 Mg/2 Ml Nebu) 1 mg INHALATION RT-BID [facility] Last Admin: 03/17/23 07:29 Dose: 1 mg Cholecalciferol (Cholecalciferol 25 Mcg (1000 Iu) Tablet) 25 mcg PO BID [facility] Last Admin: 03/17/23 08:17 Dose: 25 mcg Diltiazem HCl (Diltiazem Cd 240 Mg Cap.Er.24h) 240 mg PO DAILY [facility] Last Admin: 03/17/23 08:18 Dose: 240 mg Enoxaparin Sodium (Enoxaparin 40 Mg/0.4 Ml Syringe) 40 mg SQ DAILY [facility] Last Admin: 03/17/23 08:18 Dose: 40 mg Formoterol Fumarate (Formoterol Fumarate 20 Mcg/2 Ml Nebu) 20 mcg INHALATION RT-BID [facility] Last Admin: 03/17/23 07:29 Dose: 20 mcg Hydrochlorothiazide (Hydrochlorothiazide 12.5 Mg Cap) 12.5 mg PO DAILY [facility] Last Admin: 03/17/23 08:17 Dose: 12.5 mg Levofloxacin (Levofloxacin 500 Mg Tab) 500 mg PO Q24H [facility]; Protocol Last Admin: 03/17/23 08:55 Dose: 500 mg Lisinopril (Lisinopril 20 Mg Tab) 20 mg PO DAILY [facility] Last Admin: 03/17/23 08:18 Dose: 20 mg Loratadine (Loratadine 10 Mg Tab) 5 mg PO Q12HR [facility] Last Admin: 03/17/23 08:17 Dose: 5 mg Meloxicam (Meloxicam 7.5 Mg Tab) 15 mg PO DAILY [facility] Last Admin: 03/17/23 08:17 Dose: 15 mg Methylprednisolone Sodium Succinate (Methylprednisolone Sod Succi 125 Mg/2 Ml Vial) 60 mg IV Q6HR [facility] Last Admin: 03/17/23 11:54 Dose: 60 mg Multivitamins (Multivitamins, Thera 1 Each Tab) 1 each PO DAILY [facility] Last Admin: 03/17/23 08:17 Dose: 1 each Naloxone HCl (Naloxone 0.4 Mg/Ml 1 Ml Vial) 0.2 mg IVP Q2M PRN PRN Reason: Opioid Reversal Nitroglycerin (Nitroglycerin Sl Tabs 0.4 Mg Tab) 0.4 mg SUBLINGUAL Q5M PRN PRN Reason: Chest Pain Oxycodone/Acetaminophen (Oxycodone-Apap 5-325mg 1 Each Tab) 1 each PO TID PRN PRN Reason: Pain Last Admin: 03/17/23 14:49 Dose: 1 each Past medical history to include: Ex-smoker, lives with her sons. No alcohol. Physical examination: VITAL SIGNS: 98.1, 87, 18, 127/50, 94% room air GENERAL: BMI 31.9, sitting up short of breath. EYES: Pupils equal. Conjunctiva normal. HEENT: External appearance of nose and ears normal, oral cavity grossly normal. NECK: JVD not raised; masses not palpable. HEART: First and second heart sounds are normal; no edema. LUNGS: Respiratory rate increased; decreased breath sounds, increased wheezing. ABDOMEN: Soft, nontender, liver spleen not palpable, no masses palpable. PSYCH: Alert and oriented x3; mood and affect anxious. MUSCULOSKELETAL:No Clubbing/cyanosis;muscles-grossly intact. OA INVESTIGATIONS, reviewed in the clinical context: March 17: Potassium 4 March 16: Sodium 134 potassium 2.9 BUN 20 creatinine 0.61 White count 7.3 hemoglobin 13.6 platelets 205 sodium 138 potassium 3.1 BUN 11 creatinine 0.47 Troponin I less than 0.0123 proBNP 212 Influenza type A, diabetes, honestly, COVID-19: Not detected EKG tracing personally reviewed by me-normal sinus rhythm. Chest CTA: No PE Chest x-ray film personally reviewed by me-borderline cardiomegaly Assessment and plan: -Acute COPD exacerbation in a previous smoker : Worsening DuoNeb. Increase IV Solu-Medrol 60 mg every 8. Follow with Dr. Chisholm -Anterior chest fall burning sensation. Probably musculoskeletal Seen by cardiology. No further workup. 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 Solu-Medrol increased. Given the complexity and severity of patient's condition expect the patient to be in the hospital at least for 2 more overnights
[2023-03-18] MEDS: methylPREDNISolone SOD SUCCI 125 MG/2 ML VIAL IV SCH ×4 (00:40→18:03)
[2023-03-18] MEDS: oxyCODONE-APAP 5-325MG 1 EACH TAB PO PRN ×2 (06:49→20:20)
[2023-03-18] MEDS: BUDESONIDE 1 MG/2 ML NEBU INHALATION SCH (07:45)
[2023-03-18] MEDS: FORMOTEROL FUMARATE 20 MCG/2 ML NEBU INHALATION SCH (07:45)
[2023-03-18] MEDS: IPRATROPIUM-ALBUTEROL 3 ML NEB INHALATION SCH ×3 (07:45→16:05)
--- NOTE | 2023-03-18 07:53 | XR ---
EXAMINATION TYPE: XR chest 1V portable DATE OF EXAM: 03/18/2023 HISTORY: Shortness of breath. COMPARISON: 03/14/2023 TECHNIQUE: Single view of the chest is submitted. FINDINGS: Demonstrated are scattered senescent parenchymal change. Increased density right medial lung base may reflect developing infiltrate or atelectasis. The heart is stable. Hilar and mediastinal structures are within normal limits. Degenerative changes are seen of the dorsal spine. IMPRESSION: 1. Increased density right medial lung base may reflect developing infiltrate or atelectasis.
[2023-03-18] MEDS: ENOXAPARIN 40 MG/0.4 ML SYRINGE SQ SCH (09:55)
[2023-03-18] MEDS: CHOLECALCIFEROL 25 MCG (1000 IU) TABLET PO SCH ×2 (09:55→20:12)
[2023-03-18] MEDS: lisinopriL 20 MG TAB PO SCH (09:56)
[2023-03-18] MEDS: ATORVASTATIN 10 MG TAB PO SCH (09:56)
[2023-03-18] MEDS: hydroCHLOROthiazide 12.5 MG CAP PO SCH (09:56)
[2023-03-18] MEDS: ASPIRIN 81 MG PO SCH (09:56)
[2023-03-18] MEDS: LORATADINE 10 MG TAB PO SCH ×2 (09:56→20:12)
[2023-03-18] MEDS: MULTIVITAMINS, THERA 1 EACH TAB PO SCH (09:56)
[2023-03-18] MEDS: DILTIAZEM CD 240 MG CAP.ER.24H PO SCH (09:57)
[2023-03-18] MEDS: MELOXICAM 7.5 MG TAB PO SCH (09:57)
[2023-03-18] MEDS: LEVOFLOXACIN 500 MG TAB PO SCH (09:57)
--- NOTE | 2023-03-18 11:48 | P.PN ---
Subjective Progress Note Date: 03/18/23 This is a very pleasant 77-year-old female patient with history of hypertension, hyperlipidemia, mild intermittent chronic bronchial asthma and is maintained on Wixela and albuterol in the outpatient setting. She presented to the emergency room earlier this morning with a 4 day history of increasing shortness of breath, cough, burning in the middle of her chest chest tightness and wheezing. No fever chills. No productive cough. No hemoptysis. Chest x-ray revealed no acute pulmonary process. CT angiogram revealed no evidence of pulmonary embolism. No acute thoracic process. White count 7.3. Hemoglobin 13.6. Platelets 205. D-dimer 1.07. Sodium 138. Potassium 3.1. Bicarb 26. BUN 11. Creatinine 0.47. Troponin negative 2. ProBNP 212. Influenza screen negative. RSV screen negative. COVID-19 screen negative. She's been initiated on DuoNeb inhalations, Symbicort, IV Solu-Medrol. She is seen today in consultation in the emergency department. She is currently sitting up on the stretcher. Awake and alert in no acute distress. Maintaining good O2 saturations in the 90s on room air. She's been afebrile. Hemodynamically stable. The patient is seen today 03/15/2023 in follow-up in the emergency department. She is currently sitting up in bed. Awake and alert in no acute distress. She is continuing to maintain O2 saturations in the 90s on 2 L/m per nasal cannula. She is somewhat bronchospastic and wheezy today though. Still with some cough and congestion. She is continued on DuoNeb inhalations, Pulmicort and Perforomist inhalations, IV Solu-Medrol. The patient is seen today 03/16/2023 in follow-up in the regular medical floor. She is currently sitting up in bed. Awake and alert in no acute distress. He is still having issues with cough and congestion. Still wheezing. Maintaining O2 saturations in the 90s on room air. She remains on DuoNeb inhalations, Pulmicort and Perforomist inhalations, IV Solu-Medrol. No new labs today. The patient is seen today 03/17/2023 in follow-up on the regular medical floor. She remains awake and alert in no acute distress. She continues to have some wheezing. Continues to have nonproductive cough. She is maintaining good O2 saturations in the 90s on room air. Sodium 136. Potassium 4.0. Bicarb 30. BUN 19. Creatinine 0.57. Glucose 156. She is continued on DuoNeb inhalations, Pulmicort and Perforomist inhalations, Solu-Medrol. Antibiotics in the form of Levaquin. Lovenox for DVT prophylaxis. The patient is seen today 03/18/2023 in follow-up on the regular medical floor. She is currently sitting up in bed. Awake and alert in no acute distress. Breathing better today compared to yesterday's. Still with some wheezing and scattered rhonchi. Still not quite back to her baseline. Procalcitonin was 0.03. She is continued on DuoNeb inhalations, Pulmicort and perform as inhalations, IV Solu-Medrol. Empiric antibiotics in the form of Levaquin. Chest x-ray reveals increased density in the right midlung reflecting early infiltrate/atelectasis. Objective - Vital Signs Vital signs: Vital Signs Temp 97.7 F 03/18/23 06:55 Pulse 86 03/18/23 08:09 Resp 16 03/18/23 06:55 BP 150/76 03/18/23 06:55 Pulse Ox 95 03/18/23 07:48 FiO2 21 03/17/23 07:30 Intake & Output 03/17/23 03/18/23 03/18/23 18:59 06:59 18:59 Intake Total 318 180 Balance 318 180 Intake: Oral 318 180 Other: Voiding Method Toilet # Voids 6 2 # Bowel Movements 1 - Exam GENERAL EXAM: Alert, 77-year-old female, comfortable in no apparent distress. HEAD: Normocephalic. EYES: Normal reaction of pupils, equal size. NOSE: Clear with pink turbinates. THROAT: No erythema or exudates. NECK: No masses, no JVD. CHEST: No chest wall deformity. LUNGS: Equal air entry with scattered rhonchi, bilateral end expiratory wheeze, diminished. On room air. CVS: S1 and S2 normal with no audible murmur, regular rhythm. ABDOMEN: No hepatosplenomegaly, normal bowel sounds, no guarding or rigidity. SPINE: No scoliosis or deformity SKIN: No rashes CENTRAL NERVOUS SYSTEM: No focal deficits, tone is normal in all 4 extremities. EXTREMITIES: There is no peripheral edema. No clubbing, no cyanosis. Peripheral pulses are intact. - Labs CBC & Chem 7: 03/14/23 09:00 03/17/23 06:36 Assessment and Plan Assessment: Acute exacerbation of mild intermittent chronic bronchial asthma complicated by purulent tracheobronchitis. RSV screen negative. Influenza screen negative. COVID-19 history negative. History of hypertension Hyperlipidemia Very remote smoking history Plan: The patient was seen and evaluated Chest x-ray and medications reviewed Continue bronchodilators, steroids Continued on Levaquin We will continue to follow I have personally seen and examined the patient, performed the documentation and the assessment and plan as written. Number of minutes spent on the visit: 10.
--- NOTE | 2023-03-18 12:22 | P.PN ---
Progress Note - Text Progress Note Date: 03/18/23 Chief Complaint: Short of breath This is a pleasant 77-year-old patient, follows with Dr. Alcaraz. Patient also follows with Dr. Arnett from pulmonary and Dr. Caputo from cardiology. Dr. Caputo is following the patient outpatient for cardiac symptoms Patient now presents with increasing shortness of breath this morning. Some chills. No fever. Appetite is fair. No cough. Also felt a burning sensation in the chest. Did not radiate anywhere. No dizziness or lightheadedness. After getting breathing treatments feeling better. March 15: Seen by cardiology Not felt to be a cardiac issue. Remains short of breath and wheezing. Eating fair. March 16: Wheezing and short of breath better. Still present. Oral intake good. Up to the bathroom. Remains on IV Solu-Medrol. Bronchodilators. Nebulized Perforomist and Pulmicort. March 17: Still having wheezing and shortness of breath up to the bathroom. Continued on Solu-Medrol bronchodilators. IV Solu-Medrol dose increased. March 18: He may still short of breath and wheezing. Dose of sorbitol increase yesterday. Discussed with the patient. Some cough. Continue current treatment. Up in a chair as tolerated. Active Medications Albuterol/Ipratropium (Ipratropium-Albuterol 3 Ml Neb) 3 ml INHALATION RT-QID [facility] Last Admin: 03/18/23 12:13 Dose: 3 ml Albuterol/Ipratropium (Ipratropium-Albuterol 3 Ml Neb) 3 ml INHALATION RT-Q2H PRN PRN Reason: Shortness Of Breath Or Wheezing Aspirin (Aspirin 81 Mg) 81 mg PO DAILY [facility] Last Admin: 03/18/23 09:56 Dose: 81 mg Atorvastatin Calcium (Atorvastatin 10 Mg Tab) 10 mg PO DAILY [facility] Last Admin: 03/18/23 09:56 Dose: 10 mg Benzonatate (Benzonatate 100 Mg Cap) 200 mg PO TID PRN PRN Reason: Cough Last Admin: 03/17/23 20:43 Dose: 200 mg Budesonide (Budesonide 1 Mg/2 Ml Nebu) 1 mg INHALATION RT-BID [facility] Last Admin: 03/18/23 07:45 Dose: 1 mg Cholecalciferol (Cholecalciferol 25 Mcg (1000 Iu) Tablet) 25 mcg PO BID [facility] Last Admin: 03/18/23 09:55 Dose: 25 mcg Diltiazem HCl (Diltiazem Cd 240 Mg Cap.Er.24h) 240 mg PO DAILY [facility] Last Admin: 03/18/23 09:57 Dose: 240 mg Enoxaparin Sodium (Enoxaparin 40 Mg/0.4 Ml Syringe) 40 mg SQ DAILY [facility] Last Admin: 03/18/23 09:55 Dose: 40 mg Formoterol Fumarate (Formoterol Fumarate 20 Mcg/2 Ml Nebu) 20 mcg INHALATION RT-BID [facility] Last Admin: 03/18/23 07:45 Dose: 20 mcg Hydrochlorothiazide (Hydrochlorothiazide 12.5 Mg Cap) 12.5 mg PO DAILY [facility] Last Admin: 03/18/23 09:56 Dose: 12.5 mg Levofloxacin (Levofloxacin 500 Mg Tab) 500 mg PO Q24H [facility]; Protocol Last Admin: 03/18/23 09:57 Dose: 500 mg Lisinopril (Lisinopril 20 Mg Tab) 20 mg PO DAILY [facility] Last Admin: 03/18/23 09:56 Dose: 20 mg Loratadine (Loratadine 10 Mg Tab) 5 mg PO Q12HR [facility] Last Admin: 03/18/23 09:56 Dose: 5 mg Meloxicam (Meloxicam 7.5 Mg Tab) 15 mg PO DAILY [facility] Last Admin: 03/18/23 09:57 Dose: 15 mg Methylprednisolone Sodium Succinate (Methylprednisolone Sod Succi 125 Mg/2 Ml Vial) 60 mg IV Q6HR [facility] Last Admin: 03/18/23 06:30 Dose: 60 mg Multivitamins (Multivitamins, Thera 1 Each Tab) 1 each PO DAILY [facility] Last Admin: 03/18/23 09:56 Dose: 1 each Naloxone HCl (Naloxone 0.4 Mg/Ml 1 Ml Vial) 0.2 mg IVP Q2M PRN PRN Reason: Opioid Reversal Nitroglycerin (Nitroglycerin Sl Tabs 0.4 Mg Tab) 0.4 mg SUBLINGUAL Q5M PRN PRN Reason: Chest Pain Oxycodone/Acetaminophen (Oxycodone-Apap 5-325mg 1 Each Tab) 1 each PO TID PRN PRN Reason: Pain Last Admin: 03/18/23 06:49 Dose: 1 each Past medical history to include: Ex-smoker, lives with her sons. No alcohol. Physical examination: VITAL SIGNS: 97.7, 84, 16, 150/76, 94% room air GENERAL: BMI 31.9, sitting up short of breath. EYES: Pupils equal. Conjunctiva normal. HEENT: External appearance of nose and ears normal, oral cavity grossly normal. NECK: JVD not raised; masses not palpable. HEART: First and second heart sounds are normal; no edema. LUNGS: Respiratory rate increased; decreased breath sounds, increased wheezing. ABDOMEN: Soft, nontender, liver spleen not palpable, no masses palpable. PSYCH: Alert and oriented x3; mood and affect anxious. MUSCULOSKELETAL:No Clubbing/cyanosis;muscles-grossly intact. OA INVESTIGATIONS, reviewed in the clinical context: March 17: Potassium 4 March 16: Sodium 134 potassium 2.9 BUN 20 creatinine 0.61 White count 7.3 hemoglobin 13.6 platelets 205 sodium 138 potassium 3.1 BUN 11 creatinine 0.47 Troponin I less than 0.0123 proBNP 212 Influenza type A, diabetes, honestly, COVID-19: Not detected EKG tracing personally reviewed by me-normal sinus rhythm. Chest CTA: No PE Chest x-ray film personally reviewed by me-borderline cardiomegaly Assessment and plan: -Acute COPD exacerbation in a previous smoker : Slow to respond DuoNeb. IV Solu-Medrol 60 mg every 8. Nebulized Perforomist and Pulmicort. Follow with Dr. Chisholm -Anterior chest fall burning sensation. Probably musculoskeletal Seen by cardiology. No further workup. 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
[2023-03-18] MEDS: BENZONATATE 100 MG CAP PO PRN (20:12)
[2023-03-19] MEDS: BUDESONIDE 1 MG/2 ML NEBU INHALATION SCH ×2 (00:04→09:00)
[2023-03-19] MEDS: FORMOTEROL FUMARATE 20 MCG/2 ML NEBU INHALATION SCH ×2 (00:04→09:00)
[2023-03-19] MEDS: IPRATROPIUM-ALBUTEROL 3 ML NEB INHALATION SCH ×3 (00:04→12:06)
[2023-03-19] MEDS: methylPREDNISolone SOD SUCCI 125 MG/2 ML VIAL IV SCH ×3 (00:12→12:27)
[2023-03-19] MEDS: oxyCODONE-APAP 5-325MG 1 EACH TAB PO PRN ×2 (00:35→10:31)
[2023-03-19 07:35] VITALS: BP 158/88; RESP 16; TEMP 98
[2023-03-19] MEDS: MELOXICAM 7.5 MG TAB PO SCH (09:02)
[2023-03-19] MEDS: LEVOFLOXACIN 500 MG TAB PO SCH (09:02)
[2023-03-19] MEDS: ENOXAPARIN 40 MG/0.4 ML SYRINGE SQ SCH (09:02)
[2023-03-19] MEDS: CHOLECALCIFEROL 25 MCG (1000 IU) TABLET PO SCH (09:03)
[2023-03-19] MEDS: LORATADINE 10 MG TAB PO SCH (09:03)
[2023-03-19] MEDS: lisinopriL 20 MG TAB PO SCH (09:03)
[2023-03-19] MEDS: MULTIVITAMINS, THERA 1 EACH TAB PO SCH (09:03)
[2023-03-19] MEDS: ATORVASTATIN 10 MG TAB PO SCH (09:03)
[2023-03-19] MEDS: hydroCHLOROthiazide 12.5 MG CAP PO SCH (09:03)
[2023-03-19] MEDS: DILTIAZEM CD 240 MG CAP.ER.24H PO SCH (09:03)
[2023-03-19] MEDS: ASPIRIN 81 MG PO SCH (09:03)
--- NOTE | 2023-03-19 10:49 | P.PN ---
Subjective Progress Note Date: 03/19/23 This is a very pleasant 77-year-old female patient with history of hypertension, hyperlipidemia, mild intermittent chronic bronchial asthma and is maintained on Wixela and albuterol in the outpatient setting. She presented to the emergency room earlier this morning with a 4 day history of increasing shortness of breath, cough, burning in the middle of her chest chest tightness and wheezing. No fever chills. No productive cough. No hemoptysis. Chest x-ray revealed no acute pulmonary process. CT angiogram revealed no evidence of pulmonary embolism. No acute thoracic process. White count 7.3. Hemoglobin 13.6. Platelets 205. D-dimer 1.07. Sodium 138. Potassium 3.1. Bicarb 26. BUN 11. Creatinine 0.47. Troponin negative 2. ProBNP 212. Influenza screen negative. RSV screen negative. COVID-19 screen negative. She's been initiated on DuoNeb inhalations, Symbicort, IV Solu-Medrol. She is seen today in consultation in the emergency department. She is currently sitting up on the stretcher. Awake and alert in no acute distress. Maintaining good O2 saturations in the 90s on room air. She's been afebrile. Hemodynamically stable. The patient is seen today 03/15/2023 in follow-up in the emergency department. She is currently sitting up in bed. Awake and alert in no acute distress. She is continuing to maintain O2 saturations in the 90s on 2 L/m per nasal cannula. She is somewhat bronchospastic and wheezy today though. Still with some cough and congestion. She is continued on DuoNeb inhalations, Pulmicort and Perforomist inhalations, IV Solu-Medrol. The patient is seen today 03/16/2023 in follow-up in the regular medical floor. She is currently sitting up in bed. Awake and alert in no acute distress. He is still having issues with cough and congestion. Still wheezing. Maintaining O2 saturations in the 90s on room air. She remains on DuoNeb inhalations, Pulmicort and Perforomist inhalations, IV Solu-Medrol. No new labs today. The patient is seen today 03/17/2023 in follow-up on the regular medical floor. She remains awake and alert in no acute distress. She continues to have some wheezing. Continues to have nonproductive cough. She is maintaining good O2 saturations in the 90s on room air. Sodium 136. Potassium 4.0. Bicarb 30. BUN 19. Creatinine 0.57. Glucose 156. She is continued on DuoNeb inhalations, Pulmicort and Perforomist inhalations, Solu-Medrol. Antibiotics in the form of Levaquin. Lovenox for DVT prophylaxis. The patient is seen today 03/18/2023 in follow-up on the regular medical floor. She is currently sitting up in bed. Awake and alert in no acute distress. Breathing better today compared to yesterday's. Still with some wheezing and scattered rhonchi. Still not quite back to her baseline. Procalcitonin was 0.03. She is continued on DuoNeb inhalations, Pulmicort and perform as inhalations, IV Solu-Medrol. Empiric antibiotics in the form of Levaquin. Chest x-ray reveals increased density in the right midlung reflecting early infiltrate/atelectasis. The patient is seen today 03/19/2023 in follow-up on the regular medical floor. She is awake and alert in no acute distress. Feeling nearly back to her baseline. No worsening shortness of breath, cough or congestion. Maintaining good O2 saturations in the 90s on room air. She's continued on DuoNeb inhalations, Pulmicort and Perforomist inhalations, IV Solu-Medrol. She remains on antibiotics in the form of Levaquin. Lovenox for DVT prophylaxis. Objective - Vital Signs Vital signs: Vital Signs Temp 98.0 F 03/19/23 07:35 Pulse 90 03/19/23 09:27 Resp 16 03/19/23 07:35 BP 158/88 03/19/23 07:35 Pulse Ox 95 03/19/23 09:04 FiO2 21 03/17/23 07:30 Intake & Output 03/18/23 03/19/23 03/19/23 18:59 06:59 18:59 Intake Total 580 118 Balance 580 118 Intake: Oral 580 118 Other: Voiding Method Toilet # Voids 1 1 - Exam GENERAL EXAM: Alert, 77-year-old female, on room air, comfortable in no apparent distress. HEAD: Normocephalic. EYES: Normal reaction of pupils, equal size. NOSE: Clear with pink turbinates. THROAT: No erythema or exudates. NECK: No masses, no JVD. CHEST: No chest wall deformity. LUNGS: Equal air entry with scattered rhonchi, bilateral end expiratory wheeze, diminished. CVS: S1 and S2 normal with no audible murmur, regular rhythm. ABDOMEN: No hepatosplenomegaly, normal bowel sounds, no guarding or rigidity. SPINE: No scoliosis or deformity SKIN: No rashes CENTRAL NERVOUS SYSTEM: No focal deficits, tone is normal in all 4 extremities. EXTREMITIES: There is no peripheral edema. No clubbing, no cyanosis. Peripheral pulses are intact. - Labs CBC & Chem 7: 03/14/23 09:00 03/17/23 06:36 Assessment and Plan Assessment: Acute exacerbation of mild intermittent chronic bronchial asthma complicated by purulent tracheobronchitis. RSV screen negative. Influenza screen negative. COVID-19 history negative. History of hypertension Hyperlipidemia Very remote smoking history Plan: The patient was seen and evaluated Cleared for discharge from the pulmonary standpoint Stable and on room air Complete course of antibiotics Complete prednisone taper Continue on Symbicort and albuterol HFA Follow-up in the office in 1 week I have personally seen and examined the patient, performed the documentation and the assessment and plan as written. Number of minutes spent on the visit: 10.
[2023-03-19 12:16] VITALS: PULSE 94
--- NOTE | 2023-03-19 20:40 | P.DS ---
Providers Date of admission: 03/17/23 17:33 Expected date of discharge: 03/19/23 Attending physician: Audie Ye Consults: 03/14/23 21:19 Consult Physician Routine Consulting Provider: David Chisholm Consult Reason/Comments: COPD Do you want consulting provider notified?: Yes, Notify in am Primary care physician: [facility] Course: Chief Complaint: Short of breath This is a pleasant 77-year-old patient, follows with Dr. Alcaraz. Patient also follows with Dr. Arnett from pulmonary and Dr. Caputo from cardiology. Dr. Caputo is following the patient outpatient for cardiac symptoms Patient now presents with increasing shortness of breath this morning. Some chills. No fever. Appetite is fair. No cough. Also felt a burning sensation in the chest. Did not radiate anywhere. No dizziness or lightheadedness. After getting breathing treatments feeling better. March 15: Seen by cardiology Not felt to be a cardiac issue. Remains short of breath and wheezing. Eating fair. March 16: Wheezing and short of breath better. Still present. Oral intake good. Up to the bathroom. Remains on IV Solu-Medrol. Bronchodilators. Nebulized Perforomist and Pulmicort. March 17: Still having wheezing and shortness of breath up to the bathroom. Continued on Solu-Medrol bronchodilators. IV Solu-Medrol dose increased. March 18: He may still short of breath and wheezing. Dose of sorbitol increase yesterday. Discussed with the patient. Some cough. Continue current treatment. Up in a chair as tolerated. March 19: Breathing better. Less wheezing. Using incentive spirometry. Skin to go home. Cleared by pulmonary. Dr. Arnett outpatient. Prednisone taper. Eating well Discussion and discharge planning more than 35 minutes Past medical history to include: Ex-smoker, lives with her sons. No alcohol. Physical examination: VITAL SIGNS: 98, 77, 16, 150/88, 95% room air GENERAL: BMI 31.9, sitting up eating improved EYES: Pupils equal. Conjunctiva normal. HEENT: External appearance of nose and ears normal, oral cavity grossly normal. NECK: JVD not raised; masses not palpable. HEART: First and second heart sounds are normal; no edema. LUNGS: Respiratory rate normal; decreased breath sounds, . ABDOMEN: Soft, nontender, liver spleen not palpable, no masses palpable. PSYCH: Alert and oriented x3; mood and affect anxious. MUSCULOSKELETAL:No Clubbing/cyanosis;muscles-grossly intact. OA INVESTIGATIONS, reviewed in the clinical context: March 17: Potassium 4 March 16: Sodium 134 potassium 2.9 BUN 20 creatinine 0.61 White count 7.3 hemoglobin 13.6 platelets 205 sodium 138 potassium 3.1 BUN 11 creatinine 0.47 Troponin I less than 0.0123 proBNP 212 Influenza type A, diabetes, honestly, COVID-19: Not detected EKG tracing personally reviewed by me-normal sinus rhythm. Chest CTA: No PE Chest x-ray film personally reviewed by me-borderline cardiomegaly Assessment and plan: -Acute COPD exacerbation in a previous smoker : Better DuoNeb. IV Solu-Medrol 60 mg every 8. Nebulized Perforomist and Pulmicort. Follow with Dr. Kathrine Hu on prednisone taper -Anterior chest fall burning sensation. Probably musculoskeletal Seen by cardiology. No further workup. For outpatient nuclear stress test. 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 -Essential hypertension Cardizem CD -Chronic insomnia Medications as needed Disposition: Home Plan - Discharge Summary Discharge Rx Participant: No New Discharge Prescriptions: New predniSONE 10 mg PO DAILY #30 tab Aspirin 81 mg PO DAILY tab Loratadine [Claritin] 5 mg PO Q12HR #10 tab Continue Albuterol Inhaler [Ventolin Hfa Inhaler] 2 puff INHALATION RT-Q6H PRN PRN Reason: Shortness Of Breath Meloxicam [Mobic] 15 mg PO DAILY Atorvastatin [Lipitor] 10 mg PO DAILY Multivitamins, Thera [Multivitamin (formulary)] 1 tab PO DAILY Perindopril Erbumine [Aceon] 8 mg PO DAILY dilTIAZem HCL [dilTIAZem HCL 24Hr ER (Xr)] 240 mg PO DAILY Indapamide [Lozol] 1.25 mg PO DAILY oxyCODONE-APAP 5-325MG [Percocet 5-325 mg] 1 tab PO TID PRN PRN Reason: Pain Cholecalciferol [Vitamin D3 (25 Mcg = 1000 Iu)] 25 mcg PO BID Fluticasone Propion/Salmeterol [Fluticasone-Salmeterol 500-50] 1 puff INHALATION RT-BID No Action Colon Probiotic 1 cap PO DAILY Discharge Medication List Albuterol Inhaler [Ventolin Hfa Inhaler] 2 puff INHALATION RT-Q6H PRN 02/05/23 [History] Atorvastatin [Lipitor] 10 mg PO DAILY 02/05/23 [History] Cholecalciferol [Vitamin D3 (25 Mcg = 1000 Iu)] 25 mcg PO BID 02/05/23 [History] Colon Probiotic 1 cap PO DAILY 02/05/23 [History] Fluticasone Propion/Salmeterol [Fluticasone-Salmeterol 500-50] 1 puff INHALATION RT-BID 02/05/23 [History] Indapamide [Lozol] 1.25 mg PO DAILY 02/05/23 [History] Meloxicam [Mobic] 15 mg PO DAILY 02/05/23 [History] Multivitamins, Thera [Multivitamin (formulary)] 1 tab PO DAILY 02/05/23 [History] Perindopril Erbumine [Aceon] 8 mg PO DAILY 02/05/23 [History] dilTIAZem HCL [dilTIAZem HCL 24Hr ER (Xr)] 240 mg PO DAILY 02/05/23 [History] oxyCODONE-APAP 5-325MG [Percocet 5-325 mg] 1 tab PO TID PRN 02/05/23 [History] Aspirin 81 mg PO DAILY tab 03/19/23 [Rx] Loratadine [Claritin] 5 mg PO Q12HR #10 tab 03/19/23 [Rx] predniSONE 10 mg PO DAILY #30 tab 03/19/23 [Rx] Follow up Appointment(s)/Referral(s): Jeet Alcaraz DO [Primary Care Provider] - 1-2 days Kalyan Arnett MD [STAFF PHYSICIAN] - 04/02/23 8:45 am Patient Instructions/Handouts: COPD (Chronic Obstructive Pulmonary Disease) (DC) Discharge Disposition: HOME SELF-CARE
== END 2023-03-19 13:25 | disposition home or self-care (01) | DRG 191 ==
LOC: EC 08:46 → 6NMEDSUR 11:24 → OBSVTOIN 03-17 17:33
PROVIDERS: ADMIT Hospitalist; ATTEND Hospitalist
DX: J44.1 Chronic obstructive pulmonary disease with (acute) exacerbation (principal); J45.21 Mild intermittent asthma with (acute) exacerbation; J98.11 Atelectasis; I10 Essential (primary) hypertension; E78.5 Hyperlipidemia, unspecified; R07.89 Other chest pain; F51.04 Psychophysiologic insomnia; E87.6 Hypokalemia; M15.9 Polyosteoarthritis, unspecified; Z20.822 Contact with and (suspected) exposure to COVID-19; Z88.0 Allergy status to penicillin; Z88.1 Allergy status to other antibiotic agents; Z79.899 Other long term (current) drug therapy; Z79.1 Long term (current) use of non-steroidal anti-inflammatories (NSAID); Z87.891 Personal history of nicotine dependence
CPT/HCPCS: 36415; 71045; 71046; 71275; 80048; 80053; 80061; 83605; 83735; 83880; 84145; 84484; 85025; 85379; 85610; 85730; 87636; 93005; 94640; 94760; 96372; 96374; 96376; 99285

== ENCOUNTER 2024-11-05 09:28 | Emergency (ER) | payer MEDICARE ==
[2024-11-05] MEDS: HYDROmorphone 0.5 MG/0.5 ML SYRINGE IVP STA (10:18)
--- NOTE | 2024-11-05 10:31 | ED ---
General Adult HPI - General Chief complaint: Abdominal Pain Stated complaint: Left Flank Pain Time Seen by Provider: 11/05/24 09:32 Source: patient, RN notes reviewed, old records reviewed Mode of arrival: wheelchair Limitations: no limitations - History of Present Illness Initial comments: 78-year-old female presenting with left flank pain. Pain has been intermittent over the past 2 to 3 weeks. She states that she did have a minor fall landing on her buttock which occurred yesterday. She states that she has had increased pain in the left low back. No fever. No dysuria. No vomiting. Patient is able to ambulate without worsening pain. - Related Data Home Medications Medication Instructions Recorded Confirmed Albuterol Inhaler [Ventolin Hfa 2 puff INHALATION RT-Q6H PRN 02/05/23 03/14/23 Inhaler] Atorvastatin [Lipitor] 10 mg PO DAILY 02/05/23 03/14/23 Cholecalciferol [Vitamin D3 (25 25 mcg PO BID 02/05/23 03/14/23 Mcg = 1000 Iu)] Colon Probiotic 1 cap PO DAILY 02/05/23 03/14/23 Fluticasone Propion/Salmeterol 1 puff INHALATION RT-BID 02/05/23 03/14/23 [Fluticasone-Salmeterol 500-50] Indapamide [Lozol] 1.25 mg PO DAILY 02/05/23 03/14/23 Meloxicam [Mobic] 15 mg PO DAILY 02/05/23 03/14/23 Multivitamins, Thera [Multivitamin 1 tab PO DAILY 02/05/23 03/14/23 (formulary)] Perindopril Erbumine [Aceon] 8 mg PO DAILY 02/05/23 03/14/23 dilTIAZem HCL [dilTIAZem HCL 24Hr 240 mg PO DAILY 02/05/23 03/14/23 ER (Xr)] oxyCODONE-APAP 5-325MG [Percocet 1 tab PO TID PRN 02/05/23 03/14/23 5-325 mg] Previous Rx's Medication Instructions Recorded Aspirin 81 mg PO DAILY tab 03/19/23 Loratadine [Claritin] 5 mg PO Q12HR #10 tab 03/19/23 predniSONE 10 mg PO DAILY #30 tab 03/19/23 Allergies Allergy/AdvReac Type Severity Reaction Status Date / Time clarithromycin Allergy Unknown Verified 11/05/24 09:36 Penicillins Allergy Unknown Verified 11/05/24 09:36 Review of Systems ROS Statement: Those systems with pertinent positive or pertinent negative responses have been documented in the HPI. ROS Other: All systems not noted in ROS Statement are negative. Past Medical History Past Medical History: Asthma, COPD, Hypertension Additional Past Medical History / Comment(s): diverticulosis History of Any Multi-Drug Resistant Organisms: None Reported Past Surgical History: Appendectomy, Hysterectomy, Tonsillectomy Additional Past Surgical History / Comment(s): breast biopsy Past Psychological History: No Psychological Hx Reported Smoking Status: Former smoker Past Alcohol Use History: None Reported Past Drug Use History: None Reported General Exam Limitations: no limitations General appearance: alert, in no apparent distress Head exam: Present: atraumatic, normocephalic Eye exam: Present: normal appearance, PERRL Neck exam: Present: normal inspection. Absent: tenderness, meningismus Respiratory exam: Present: normal lung sounds bilaterally. Absent: respiratory distress, wheezes Cardiovascular Exam: Present: regular rate, normal rhythm GI/Abdominal exam: Present: soft, tenderness (Minor left lower quadrant). Absent: distended Extremities exam: Present: normal inspection, normal capillary refill Back exam: Present: CVA tenderness (L) Neurological exam: Present: alert, oriented X3, CN II-XII intact. Absent: motor sensory deficit Psychiatric exam: Present: normal affect, normal mood Skin exam: Present: warm, dry, intact. Absent: cyanosis, diaphoretic Course Vital Signs 11/05/24 11/05/24 09:37 10:22 Temperature 97.9 F Pulse Rate 83 67 Respiratory 20 22 Rate Blood Pressure 147/80 143/84 O2 Sat by Pulse 96 96 Oximetry Medical Decision Making - Medical Decision Making Was pt. sent in by a medical professional or institution (, PA, IT TRAINEE, urgent care, hospital, or group home...) When possible be specific @ -No Did you speak to anyone other than the patient for history (EMS, parent, family, police, friend...)? What history was obtained from this source @ -No Did you review nursing and triage notes (agree or disagree)? Why? @ -I reviewed and agree with nursing and triage notes Were old charts reviewed (outside hosp., previous admission, EMS record, old EKG, old radiological studies, urgent care reports/EKG's, group home records)? Report findings @ -No old charts were reviewed Differential Musculoskeletal Muscular strain, contusion, ligament sprain, fracture, arthritis, septic arthritis, bursitis, cellulitis, muscle spasm, nerve compression, DVT, arterial occlusion, herpes zoster, electrolyte abnormality, tumor.... This is not meant to be in all inclusive list EKG interpreted by me (3pts min.). @ -As above X-rays interpreted by me (1pt min.). @ -None done CT interpreted by me (1pt min.). @ -CT of the abdomen pelvis showing chronic derangement of the lumbar spine, no hydronephrosis or obstructing renal stone, no acute finding. U/S interpreted by me (1pt. min.). @ -None done What testing was considered but not performed or refused? (CT, X-rays, U/S, labs)? Why? @ -None What meds were considered but not given or refused? Why? @ -None Did you discuss the management of the patient with other professionals (professionals i.e. , PA, IT TRAINEE, lab, RT, psych nurse, utilities ground worker, honing machine set up operator tool, teacher, juvenile correctional officer, manager of case)? Give summary @ -No Was smoking cessation discussed for >3mins.? @ -No Was critical care preformed (if so, how long)? @ -No Were there social determinants of health that impacted care today? How? (Homelessness, low income, unemployed, alcoholism, drug addiction, transportation, low edu. Level, literacy, decrease access to med. care, senior care, rehab)? @ -No Was there de-escalation of care discussed even if they declined (Discuss DNR or withdrawal of care, Hospice)? DNR status @ -No What co-morbidities impacted this encounter? (DM, HTN, Smoking, COPD, CAD, Cancer, CVA, ARF, Chemo, Hep., AIDS, mental health diagnosis, sleep apnea, m orbid obesity)? @ -None Was patient admitted / discharged? Hospital course, mention meds given and route, prescriptions, significant lab abnormalities, going to OR and other pertinent info. @ -78-year-old female with chronic back pain presents with a 3-week history of intermittent left flank pain she did have a minor fall. She takes Percocet daily. She follows with pain management and is scheduled for ablation in approximately 7 days. She has a leukocytosis of uncertain etiology. She is af ebrile. Urine is clear without signs of infection. CT does not show any acute findings. She is feeling better after symptomatic treatment in the emergency department. She is given return parameters and I feel is stable for discharge at this time with return parameters she has good outpatient follow-up and is scheduled for nerve ablation. Undiagnosed new problem with uncertain prognosis? @ -No Drug Therapy requiring intensive monitoring for toxicity (Heparin, Nitro, Insulin, Cardizem)? @ -No Were any procedures done? @ -No Diagnosis/symptom? @ -Acute on chronic low back pain Acute, or Chronic, or Acute on Chronic? @ -Acute on chronic Uncomplicated (without systemic symptoms) or Complicated (systemic symptoms)? @ -Default Side effects of treatment? @ -No Exacerbation, Progression, or Severe Exacerbation? @ -No Poses a threat to life or bodily function? How? (Chest pain, [place], NC, pneumonia, PE, COPD, DKA, ARF, appy, cholecystitis, CVA, Diverticulitis, Homicidal, Suicidal, threat to staff... and all critical care pts) @ -No - Lab Data Result diagrams: 11/05/24 09:59 11/05/24 09:59 Lab Results 11/05/24 11/05/24 11/05/24 Range/Units 09:59 09:59 09:59 WBC 14.3 H (3.8-10.6) k/uL RBC 4.92 (3.80-5.40) m/uL Hgb 14.7 (11.4-16.0) gm/dL Hct 44.5 (34.0-46.0) % MCV 90.5 (80.0-100.0) fL MCH 30.0 (25.0-35.0) pg MCHC 33.1 (31.0-37.0) g/dL RDW 13.9 (11.5-15.5) % Plt Count 221 (150-450) k/uL MPV 9.3 Neutrophils % 64 % Lymphocytes % 26 % Monocytes % 8 % Eosinophils % 1 % Basophils % 0 % Neutrophils # 9.1 H (1.3-7.7) k/uL Lymphocytes # 3.8 (1.0-4.8) k/uL Monocytes # 1.1 H (0-1.0) k/uL Eosinophils # 0.1 (0-0.7) k/uL Basophils # 0.0 (0-0.2) k/uL Sodium 132 L (137-145) mmol/L Potassium 3.4 L (3.5-5.1) mmol/L Chloride 97 L (98-107) mmol/L Carbon Dioxide 28 (22-30) mmol/L Anion Gap 7 mmol/L BUN 20 H (7-17) mg/dL Creatinine 0.56 (0.52-1.04) mg/dL Est GFR (CKD-EPI)AfAm >90 (>60 ml/min/1.73 sqM) Est GFR (CKD-EPI)NonAf 90 (>60 ml/min/1.73 sqM) Glucose 105 H (74-99) mg/dL Calcium 9.6 (8.4-10.2) mg/dL Total Bilirubin 0.8 (0.2-1.3) mg/dL AST 26 (14-36) U/L ALT 30 (4-34) U/L Alkaline Phosphatase 73 (38-126) U/L Total Protein 6.6 (6.3-8.2) g/dL Albumin 4.3 (3.5-5.0) g/dL Urine Color Dark Yellow Urine Appearance Cloudy H (Clear) Urine pH 8.0 (5.0-8.0) Ur Specific [place] 1.029 (1.001-1.035) Urine Protein 1+ H (Negative) Urine Glucose (UA) Negative (Negative) Urine Ketones Trace H (Negative) Urine Blood Negative (Negative) Urine Nitrite Negative (Negative) Urine Bilirubin Negative (Negative) Urine Urobilinogen 6.0 (<2.0) mg/dL Ur Leukocyte Esterase Negative (Negative) Urine RBC 1 (0-5) /hpf Urine WBC 1 (0-5) /hpf Ur Squamous Epith Cells 13 H (0-4) /hpf Urine Mucus Many H (None) /hpf Disposition Clinical Impression: Low back pain Disposition: HOME SELF-CARE Condition: Fair Instructions (If sedation given, give patient instructions): Acute Low Back Pain (ED) Is patient prescribed a controlled substance at d/c from ED?: No Referrals: Jeet Alcaraz DO [Primary Care Provider] - 1-2 days Time of Disposition: 11:53
[2024-11-05 10:43] LABS: Appearance,Urine Cloudy (Clear); Bilirubin,Urine Negative (Negative); Blood,Urine Negative (Negative); Color,Urine Dark Yellow; Glucose,Urine (UA) Negative (Negative); Ketones,Urine Trace (Negative); Leukocyte Esterase,Urine Negative (Negative); Mucus,Urine Many /hpf; Nitrite,Urine Negative (Negative); Protein,Urine 1+ (Negative); RBC,Urine 1 /hpf (0-5); Specific Gravity,Urine 1.029 (1.001-1.035); Squamous Epithelial Cell,Urine 13 /hpf (0-4); WBC,Urine 1 /hpf (0-5)
[2024-11-05 10:49] LABS: ALT 30 U/L (4-34); AST 26 U/L (14-36); African American GFR (CKD) >90 (>60 ml/min/1.73 sqM); Albumin 4.3 g/dL (3.5-5.0); Alkaline Phosphatase 73 U/L (38-126); Anion Gap 7 mmol/L; Basophils % (A) 0 %; Blood Urea Nitrogen 20 mg/dL (7-17); Calcium 9.6 mg/dL (8.4-10.2); Carbon Dioxide 28 mmol/L (22-30); Chloride 97 mmol/L (98-107); Eosinophils # (A) 0.1 k/uL (0-0.7); Eosinophils % (A) 1 %; Glucose 105 mg/dL (74-99); HCT 44.5 % (34.0-46.0); HGB 14.7 gm/dL (11.4-16.0); Lymphocytes # (A) 3.8 k/uL (1.0-4.8); Lymphocytes % (A) 26 %; MCHC 33.1 g/dL (31.0-37.0); MCV 90.5 fL (80.0-100.0); Mean Platelet Volume 9.3; Monocytes # (A) 1.1 k/uL (0-1.0); Monocytes % (A) 8 %; Neutrophils # (A) 9.1 k/uL (1.3-7.7); Neutrophils % (A) 64 %; Non-African American GFR(CKD) 90 (>60 ml/min/1.73 sqM); Platelet Count 221 k/uL (150-450); Potassium 3.4 mmol/L (3.5-5.1); RBC 4.92 m/uL (3.80-5.40); RDW 13.9 % (11.5-15.5); Sodium 132 mmol/L (137-145); Total Bilirubin 0.8 mg/dL (0.2-1.3); Total Protein 6.6 g/dL (6.3-8.2); WBC 14.3 k/uL (3.8-10.6)
--- NOTE | 2024-11-05 11:13 | CT ---
EXAMINATION TYPE: CT abdomen pelvis wo con DATE OF EXAM: 11/05/2024 10:45 AM COMPARISON: CT chest 02/05/2023 CLINICAL INDICATION: Female, 78 years old with history of left flank pain, LT flank pain, TECHNIQUE: Contiguous axial scanning of the abdomen and pelvis without IV contrast. Coronal and sagit mary reconstructions performed. CT DLP: 573.8 mGycm. Automated exposure control for dose reduction was used. FINDINGS: The heart is upper limits of normal size without pericardial effusion. Three-vessel coronary calcific ations are present. Tortuous descending thoracic aorta ectatic lower portion of the 2.6 cm. Strandy a telectasis or scarring in the lower lungs. No pleural effusion. Tiny hiatal hernia. Noncontrast appearance of the liver, gallbladder, spleen, and mildly atrophic pancreas show no gross abnormality. There is a cortical hypodensity lower pole right kidney measuring 2.0 cm, probable cyst. No nephrolit hiasis or hydronephrosis is seen. Tiny lipid rich right adrenal adenoma measuring 9 mm. There is a 1.8 cm nodule of the left adrenal gland showing indeterminate density but unchanged from 2 023. No dilated small bowel, free fluid, or free air. No mesenteric or retroperitoneal lymphadenopathy. Scattered mild to moderate stool. Sigmoid diverticulosis. No pericolonic inflammatory change. Bladder is collapsed. There is pelvic floor relaxation with rectal prolapse noted. Uterus surgically absent. Suspect small bilateral ovaries. Small pelvic phleboliths. No abnormal fluid collection in the pelvis or pelvic lymphadenopathy. Bones: Degenerated S-shaped scoliosis of the visualized spine. Baastrup's disease. Degenerative grade 2 anterolisthesis L4-L5. Severe spinal canal stenosis L3-L4. IMPRESSION: 1. Pelvic floor relaxation with rectal prolapse. 2. 2. Sigmoid diverticulosis without acute diverticulitis. 3. A tiny 9 mm lipid rich right adrenal adenoma. Additional 1.8 cm left adrenal nodule unchanged fro 2022 suggests a benign etiology as well. 4. Indeterminate 2 cm hypodensity lower pole right kidney, suspected cyst. Recommend three-month fol low-up renal ultrasound to reassess and confirm. 5. Degenerated S-shaped scoliosis. Severe L3-L4 spinal canal stenosis. [facility], , 11/05/2024 11:10 AM
[2024-11-05] MEDS: ONDANSETRON 4 MG/2 ML VIAL IVP STA (11:27)
[2024-11-05 12:14] VITALS: BP 125/72; PULSE 65; RESP 18; TEMP 98.1
== END 2024-11-05 12:16 | disposition home or self-care (01) ==
LOC: EC 09:28
DX: M54.50 Low back pain, unspecified (principal); Z87.891 Personal history of nicotine dependence; Z88.0 Allergy status to penicillin; Z88.1 Allergy status to other antibiotic agents
CPT/HCPCS: 36415; 80053; 85025; 81001; 74176; 99284; 96374; 96375; J2405; J1171

== ENCOUNTER 2025-02-06 17:55 | Inpatient (IN) | payer MEDICARE ==
[2025-02-06] MEDS: ONDANSETRON ODT 4 MG TAB PO STA (18:18)
[2025-02-06] MEDS: MORPHINE SULFATE 4 MG/ML SYRINGE IM STA (18:19)
--- NOTE | 2025-02-06 19:31 | CT ---
EXAMINATION TYPE: CT cervical spine wo con DATE OF EXAM: 02/06/2025 7:07 PM COMPARISON: 11/13/2024. CLINICAL INDICATION: Female, 79 years old with history of fall, pain; neck pain, fall TECHNIQUE: Axial CT images from the skull base to the inferior aspect of T2 we obtained without intra venous contrast. Coronal and sagittal reformatted images were also reviewed. Contrast used: mL of , (if blank None) Oral contrast used: (if blank None) CT DLP: 329.1 mGycm, Automated exposure control for dose reduction was used. FINDINGS: Fracture: None. Osseous structures: Multilevel degenerative disc disease changes with endplate spurring and disc oste ophyte complex's. Vertebral alignment: Alignment within normal limits. Spinal canal/Neural Foramina: Disc osteophyte complexes at C4-C5 with at least mild spinal canal sten osis. Facet joint uncovertebral joint arthropathy scattered throughout the cervical spine with varyin g degrees of neural foraminal stenosis. Neck soft tissues: Prevertebral soft tissues are within normal limits. Other: The airway is patent. The lung apices are clear. IMPRESSION: 1. No evidence of cervical spine fracture. 2. Moderate to severe multilevel degenerative disc disease. [facility], , 02/06/2025 7:28 PM
--- NOTE | 2025-02-06 19:38 | CT ---
EXAMINATION TYPE: CT pelvis wo con DATE OF EXAM: 02/06/2025 7:09 PM COMPARISON: 11/05/2024. CLINICAL INDICATION: Female, 79 years old with history of fall, pain; right hip pain, fall TECHNIQUE: Axial CT pelvis wo con;Sagittal and coronal reformats were created on a separate workstat ion. Contrast used: mL of , (none if empty) Oral contrast used: (none if empty) CT DLP: 350.8 mGycm, Automated exposure control for dose reduction was used. FINDINGS: BLADDER: No evidence for wall thickening or mass given limitations of exam. REPRODUCTIVE: Pelvic floor extends below the pubococcygeal line with urinary bladder vagina and bowel in abnormal position. ABDOMEN & PELVIS STOMACH AND BOWEL: No evidence of bowel obstruction. Scattered colonic diverticula. PERITONEUM/RETROPERITONEUM: No evidence of pneumoperitoneum or free fluid. VASCULATURE: No evidence of aortic aneurysm. MUSCULOSKELETAL: There is a minimally displaced fracture of the right greater trochanter. Series 203 image 66. Severe degeneration changes with osteophyte formation disc space narrowing present in the spine. There is grade I anterolisthesis of L4 on L5. Moderate to severe degeneration changes of the h ips with joint space narrowing osteophyte formation is [id number] articulation of the right hip. LYMPH NODES: No gross evidence for lymphadenopathy. SOFT TISSUE/ABDOMINAL WALL: Unremarkable IMPRESSION: 1. Acute right greater trochanter fracture with minimal displacement. 2. Severe right hip osteoarthrosis. 3. Severe generation changes of the spine. 4. Pelvic floor prolapse involving the vagina, bladder and bowel. Findings similar to 11/05/2024 5. Colonic diverticulosis. [facility], , 02/06/2025 7:36 PM
--- NOTE | 2025-02-06 19:46 | XR ---
EXAMINATION TYPE: XR knee complete RT DATE OF EXAM: 02/06/2025 7:32 PM COMPARISON: None CLINICAL INDICATION: Female, 79 years old with history of fall, pain; PHH, pain TECHNIQUE: XR knee complete RT none views submitted. FINDINGS: No evidence of any acute osseous pathology, soft tissue swelling, or joint effusion is no breana. Tricompartmental osteophyte formation involving the femoral condyles, tibial plateau and patella . Severe joint space narrowing. Atherosclerosis of the arterial vasculature. Calcification of the me nisci. There is deformity to the medial femoral condyle and medial tibial plateau. IMPRESSION: 1. No acute osseous pathology. 2. Severe tricompartmental osteoarthritic changes. [facility], , 02/06/2025 7:44 PM
[2025-02-06 20:36] LABS: Basophils # (A) 0.05 10*3/uL (0.00-0.10); Basophils % (A) 0.3 %; Eosinophils % (A) 0.6 %; HGB 13.4 g/dL (12.0-15.0); Lymphocytes # (A) 2.28 10*3/uL (0.90-5.00); Lymphocytes % (A) 14.2 %; MCH 31.2 pg (27.0-32.0); MCHC 34.4 g/dL (32.0-37.0); MCV 90.9 fL (80.0-97.0); Mean Platelet Volume 10.3 fL (9.5-12.2); Monocytes # (A) 1.34 10*3/uL (0.20-1.00); Monocytes % (A) 8.4 %; Neutrophils # (A) 12.17 10*3/uL (1.80-7.70); Neutrophils % (A) 75.9 %; Platelet Count 246 10*3/uL (140-440); RBC 4.29 10*6/uL (4.10-5.20); RDW 14.2 % (11.5-14.5); WBC 16.04 10*3/uL (4.50-10.00)
[2025-02-06] MEDS ORDERED: NALOXONE 0.4 MG/ML 1 ML VIAL IV PRN (20:41)
--- NOTE | 2025-02-06 20:46 | ED ---
General Adult HPI - General Chief complaint: Fall Stated complaint: fall,hip pain Time Seen by Provider: 02/06/25 18:10 Source: patient, EMS, RN notes reviewed, old records reviewed Mode of arrival: EMS - History of Present Illness Initial comments: Patient is a 79-year-old female presents emergency department after a fall. Patient is not on blood thinners. Is on chronic pain medications. Patient states she was walking an incline at home and tripped and fell onto her right side. Has chronic neck pain and is on oxycodone. Primarily complaining of right hip pain as well as right knee pain. Did not hit her head or lose conscious. No chest pain or shortness of breath. No abdominal pain. No fainting. Presents for further evaluation at this time. - Related Data Home Medications Medication Instructions Recorded Confirmed Albuterol Inhaler [Ventolin Hfa 2 puff INHALATION RT-Q6H PRN 02/05/23 03/14/23 Inhaler] Atorvastatin [Lipitor] 10 mg PO DAILY 02/05/23 03/14/23 Cholecalciferol [Vitamin D3 (25 25 mcg PO BID 02/05/23 03/14/23 Mcg = 1000 Iu)] Colon Probiotic 1 cap PO DAILY 02/05/23 03/14/23 Fluticasone Propion/Salmeterol 1 puff INHALATION RT-BID 02/05/23 03/14/23 [Fluticasone-Salmeterol 500-50] Indapamide [Lozol] 1.25 mg PO DAILY 02/05/23 03/14/23 Meloxicam [Mobic] 15 mg PO DAILY 02/05/23 03/14/23 Multivitamins, Thera [Multivitamin 1 tab PO DAILY 02/05/23 03/14/23 (formulary)] Perindopril Erbumine [Aceon] 8 mg PO DAILY 02/05/23 03/14/23 dilTIAZem HCL [dilTIAZem HCL 24Hr 240 mg PO DAILY 02/05/23 03/14/23 ER (Xr)] oxyCODONE-APAP 5-325MG [Percocet 1 tab PO TID PRN 02/05/23 03/14/23 5-325 mg] Previous Rx's Medication Instructions Recorded Aspirin 81 mg PO DAILY tab 03/19/23 Loratadine [Claritin] 5 mg PO Q12HR #10 tab 03/19/23 predniSONE 10 mg PO DAILY #30 tab 03/19/23 Ibuprofen [Motrin] 600 mg PO Q8HR PRN #30 tab 11/13/24 Allergies Allergy/AdvReac Type Severity Reaction Status Date / Time clarithromycin Allergy Unknown Verified 02/06/25 18:13 Penicillins Allergy Unknown Verified 02/06/25 18:13 Review of Systems ROS Statement: Those systems with pertinent positive or pertinent negative responses have been documented in the HPI. Review of Systems: CONST: Denies fever EYES: Denies blurry vision ENT: Denies nasal congestion C/V: Denies Chest pain RESP: Denies shortness of breath GI: Denies abdominal pain : Denies dysuria SKIN: Denies rash. MSK: Endorses joint pain NEURO: Denies headache ROS Other: All systems not noted in ROS Statement are negative. Past Medical History Past Medical History: Asthma, COPD, Hypertension Additional Past Medical History / Comment(s): diverticulosis History of Any Multi-Drug Resistant Organisms: None Reported Past Surgical History: Appendectomy, Hysterectomy, Tonsillectomy Additional Past Surgical History / Comment(s): breast biopsy Past Psychological History: No Psychological Hx Reported Smoking Status: Former smoker Past Alcohol Use History: None Reported Past Drug Use History: None Reported General Exam - General Exam Comments Initial Comments: General: Appears in no acute distress. HEAD: Normal with no signs of head trauma. Negative [place] sign. Negative raccoon eyes. EYES: PERRLA, EOMI, conjunctiva normal, no discharge. Pupils are 3 mm and equal bilaterally. ENT: Hearing grossly intact, normal oropharynx. RESPIRATORY: Clear breath sounds bilaterally. No wheezes, rales, or rhonchi. C/V: Regular rate and rhythm. S1 and S2 auscultated, peripheral pulses 2+ and intact throughout ABD: Abd is soft, nontender, nondistended EXT: Decreased range of motion of the right hip secondary to pain. Decreased range of motion of the right knee secondary to pain. Mild midline cervical spine tenderness to palpation. No obvious step-offs or deformities palpated. No midline thoracic or lumbar spine tenderness to palpation. Pelvis stable. SKIN: No rashes or lesions observed on exposed skin. NEURO: Alert and oriented x 4. Cranial nerves II-XII intact. No focal sensory or strength deficits. GCS of 15. Course Vital Signs 05/03/25 05/03/25 18:03 21:55 Temperature 98.5 F 98.5 F Pulse Rate 67 70 Respiratory 16 18 Rate Blood Pressure 167/75 124/75 O2 Sat by Pulse 94 L 94 L Oximetry Medical Decision Making - Medical Decision Making Was pt. sent in by a medical professional or institution (, JALEESA, RUG RECEIVING CLERK, urgent care, hospital, or long-term...) When possible be specific @ -No Did you speak to anyone other than the patient for history (EMS, parent, family, police, friend...)? What history was obtained from this source @ -No Did you review nursing and triage notes (agree or disagree)? Why? @ -I reviewed and agree with nursing and triage notes Were old charts reviewed (outside hosp., previous admission, EMS record, old EKG, old radiological studies, urgent care reports/EKG's, long-term records)? Report findings @ -No old charts were reviewed Differential Diagnosis (chest pain, altered mental status, abdominal pain women, abdominal pain men, vaginal bleeding, weakness, fever, dyspnea, syncope, headache, dizziness, GI bleed, back pain, seizure, CVA, palpatations, mental health, musculoskeletal)? @ -Differential Musculoskeletal Muscular strain, contusion, ligament sprain, fracture, arthritis, septic arthritis, bursitis, cellulitis, muscle spasm, nerve compression, DVT, arterial occlusion, herpes zoster, electrolyte abnormality, tumor.... This is not meant to be in all inclusive list EKG interpreted by me (3pts min.). @ -None done X-rays interpreted by me (1pt min.). @ -Knee x-ray negative for any obvious traumatic injury. Pelvis x-ray and femur x-ray shows a greater trochanteric fracture does not. CT interpreted by me (1pt min.). @ -CT of the cervical spine negative for any obvious traumatic injury. CT pelvis shows greater trochanteric fracture of the right hip U/S interpreted by me (1pt. min.). @ -None done What testing was considered but not performed or refused? (CT, X-rays, U/S, labs)? Why? @ -None What meds were considered but not given or refused? Why? @ -None Did you discuss the management of the patient with other professionals (professionals i.e. , PA, RUG RECEIVING CLERK, lab, RT, psych nurse, social media director, aging room operator, teacher, flight radio officer, family preservation caseworker)? Give summary @ -Discussed with Dr. Maravilla who accepted the admission. Medicine consulted. He requested I obtain a right hip and pelvis x-ray in addition of the CT. This was completed. Consult placed to medicine, Dr. Ye who accepted. Was smoking cessation discussed for >3mins.? @ -No Was critical care preformed (if so, how long)? @ -No Were there social determinants of health that impacted care today? How? (Homelessness, low income, unemployed, alcoholism, drug addiction, transportation, low edu. Level, literacy, decrease access to med. care, assisted, rehab)? @ -No Was there de-escalation of care discussed even if they declined (Discuss DNR or withdrawal of care, Hospice)? DNR status @ -No What co-morbidities impacted this encounter? (DM, HTN, Smoking, COPD, CAD, Cancer, CVA, ARF, Chemo, Hep., AIDS, mental health diagnosis, sleep apnea, morbid obesity)? @ -None Was patient admitted / discharged? Hospital course, mention meds given and route, prescriptions, significant lab abnormalities, going to OR and other pertinent info. @ -Patient presents for a fall. Has right hip, neck, knee pain. We will obtain imaging. Administered analgesia meds. She was in agreement this plan. CT of the neck and pelvis reveal no obvious acute neck issue however patient does have a greater trochanteric fracture of the right hip. Knee x-ray negative. Discussed with the patient. She will be admitted. Basic labs obtained and revealed a leukocytosis of 16 which is likely reactive. Labs otherwise unremarkable. I discussed case with admitting provider, on-call orthopedics Dr. Maravilla who accepted the admission. Consult placed to medicine. He did request that obtain x-rays of the pelvis as well as femur in addition to the CT which were done and redemonstrated the greater trochanteric fracture. Discussed with the patient who is agreement the plan for admission. Undiagnosed new problem with uncertain prognosis? @ -No Drug Therapy requiring intensive monitoring for toxicity (Heparin, Nitro, Insulin, Cardizem)? @ -No Were any procedures done? @ -No Diagnosis/symptom? @ -Fall, right greater trochanteric fracture of the hip Acute, or Chronic, or Acute on Chronic? @ -Acute Uncomplicated (without systemic symptoms) or Complicated (systemic symptoms)? @ -Complicated Side effects of treatment? @ -No Exacerbation, Progression, or Severe Exacerbation? @ -No Poses a threat to life or bodily function? How? (Chest pain, USA, CT, pneumonia, PE, COPD, DKA, ARF, appy, cholecystitis, CVA, Diverticulitis, Homicidal, Suic idal, threat to staff... and all critical care pts) @ -Yes - Lab Data Result diagrams: 02/06/25 20:23 02/06/25 20:23 Lab Results 02/06/25 02/06/25 02/06/25 Range/Units 20:23 20:23 20:23 WBC 16.04 H (4.50-10.00) 10*3/uL RBC 4.29 (4.10-5.20) 10*6/uL Hgb 13.4 (12.0-15.0) g/dL Hct 39.0 (37.2-46.3) % MCV 90.9 (80.0-97.0) fL MCH 31.2 (27.0-32.0) pg MCHC 34.4 (32.0-37.0) g/dL Plt Count 246 (140-440) 10*3/uL MPV 10.3 (9.5-12.2) fL Immature Gran % (Auto) 0.6 % Neutrophils % 75.9 % Lymphocytes % 14.2 % Monocytes % 8.4 % Eosinophils % 0.6 % Basophils % 0.3 % Immature Gran # 0.10 H (0.00-0.04) 10*3/uL Neutrophils # 12.17 H (1.80-7.70) 10*3/uL Lymphocytes # 2.28 (0.90-5.00) 10*3/uL Monocytes # 1.34 H (0.20-1.00) 10*3/uL Eosinophils # 0.10 (0.04-0.35) 10*3/uL Basophils # 0.05 (0.00-0.10) 10*3/uL PT 10.1 (10.0-12.5) sec INR 0.9 (<1.2) APTT 22.7 (22.0-30.0) sec Sodium 131 L (137-145) mmol/L Potassium 3.6 (3.5-5.1) mmol/L Chloride 97 L (98-107) mmol/L Carbon Dioxide 26 (22-30) mmol/L Anion Gap 8 mmol/L BUN 21 H (7-17) mg/dL Creatinine 0.53 (0.52-1.04) mg/dL Est GFR (CKD-EPI)AfAm >90 (>60 ml/min/1.73 sqM) Est GFR (CKD-EPI)NonAf >90 (>60 ml/min/1.73 sqM) Glucose 121 H (74-99) mg/dL Calcium 9.6 (8.4-10.2) mg/dL Total Bilirubin 0.7 (0.2-1.3) mg/dL AST 28 (14-36) U/L ALT 23 (4-34) U/L Alkaline Phosphatase 80 (38-126) U/L Total Protein 6.7 (6.3-8.2) g/dL Albumin 4.2 (3.5-5.0) g/dL Disposition Clinical Impression: Fall, Greater trochanter fracture Disposition: ADMITTED IP TO THIS [facility] Condition: Stable Time of Disposition: 20:40
[2025-02-06 20:47] LABS: INR 0.9 (<1.2); Partial Thromboplastin Time 22.7 sec (22.0-30.0); Prothrombin Time 10.1 sec (10.0-12.5)
[2025-02-06] MEDS: HYDROmorphone 0.5 MG/0.5 ML SYRINGE IVP STA (20:49)
[2025-02-06 20:52] LABS: ALT 23 U/L (4-34); AST 28 U/L (14-36); African American GFR (CKD) >90 (>60 ml/min/1.73 sqM); Albumin 4.2 g/dL (3.5-5.0); Alkaline Phosphatase 80 U/L (38-126); Anion Gap 8 mmol/L; Blood Urea Nitrogen 21 mg/dL (7-17); Calcium 9.6 mg/dL (8.4-10.2); Carbon Dioxide 26 mmol/L (22-30); Chloride 97 mmol/L (98-107); Glucose 121 mg/dL (74-99); Non-African American GFR(CKD) >90 (>60 ml/min/1.73 sqM); Potassium 3.6 mmol/L (3.5-5.1); Sodium 131 mmol/L (137-145); Total Bilirubin 0.7 mg/dL (0.2-1.3); Total Protein 6.7 g/dL (6.3-8.2)
--- NOTE | 2025-02-06 21:38 | XR ---
EXAMINATION TYPE: XR pelvis AP view DATE OF EXAM: 02/06/2025 9:17 PM COMPARISON: 11/13/2024 CLINICAL INDICATION: Female, 79 years old with history of greater trochanteric fracture; pain H TECHNIQUE: XR pelvis AP view, examined in a single projection. FINDINGS: There is no evidence of fracture or dislocation. There is no soft tissue abnormality. No a bnormal calcifications are present. Multilevel degenerative changes of the lower spine. The hips appe ar intact. Osteophyte formation of the superior acetabulum bilaterally with mild joint space narrowin g. IMPRESSION: 1. No acute osseous pathology. 2. Moderate degeneration changes of the hip. [facility], , 02/06/2025 9:36 PM
--- NOTE | 2025-02-06 21:43 | XR ---
EXAMINATION TYPE: XR femur RT DATE OF EXAM: 02/06/2025 9:17 PM COMPARISON: CT same day. CLINICAL INDICATION: Female, 79 years old with history of GREATER TROCHANTERIC FX; PHH, pain TECHNIQUE: XR femur RT examined in Frontal and lateral projections. FINDINGS: Acute fractures of the greater trochanter is less conspicuous on radiography there is a pos sible lucent line correlating with findings on CT present. Joint space narrowing osteophyte formation of the knee is severe. IMPRESSION: 1. Greater trochanter fracture seen on same day CT is less conspicuous. Lucent line that does not co rrelate with the fracture on CT is identified and likely artifact. 2. Severe knee osteoarthrosis. [facility], , 02/06/2025 9:41 PM
[2025-02-06] MEDS: HYDROmorphone 0.5 MG/0.5 ML SYRINGE IVP PRN (21:52)
[2025-02-07] MEDS: ONDANSETRON 4 MG/2 ML VIAL IVP PRN (00:10)
[2025-02-07 03:53] LABS: Basophils # (A) 0.05 10*3/uL (0.00-0.10); Basophils % (A) 0.3 %; Eosinophils # (A) 0.07 10*3/uL (0.04-0.35); Eosinophils % (A) 0.5 %; HCT 38.6 % (37.2-46.3); HGB 12.8 g/dL (12.0-15.0); Lymphocytes # (A) 1.51 10*3/uL (0.90-5.00); Lymphocytes % (A) 10.6 %; MCH 31.2 pg (27.0-32.0); MCHC 33.2 g/dL (32.0-37.0); MCV 94.1 fL (80.0-97.0); Mean Platelet Volume 11.3 fL (9.5-12.2); Monocytes # (A) 1.33 10*3/uL (0.20-1.00); Monocytes % (A) 9.3 %; Neutrophils # (A) 11.27 10*3/uL (1.80-7.70); Neutrophils % (A) 78.7 %; Platelet Count 204 10*3/uL (140-440); RDW 14.3 % (11.5-14.5); WBC 14.31 10*3/uL (4.50-10.00)
[2025-02-07 04:20] LABS: ALT 23 U/L (4-34); African American GFR (CKD) >90 (>60 ml/min/1.73 sqM); Albumin/Globulin Ratio 1.5; Anion Gap 9 mmol/L; Blood Urea Nitrogen 21 mg/dL (7-17); Calcium 9.5 mg/dL (8.4-10.2); Carbon Dioxide 25 mmol/L (22-30); Chloride 95 mmol/L (98-107); Globulin 2.6 g/dL; Glucose 118 mg/dL (74-99); Non-African American GFR(CKD) >90 (>60 ml/min/1.73 sqM); Sodium 129 mmol/L (137-145)
[2025-02-07 04:26] LABS: AST 44 U/L (14-36); Albumin 3.9 g/dL (3.5-5.0); Alkaline Phosphatase 56 U/L (38-126); Potassium 3.9 mmol/L (3.5-5.1); Total Bilirubin 1.2 mg/dL (0.2-1.3); Total Protein 6.5 g/dL (6.3-8.2)
[2025-02-07] MEDS: METOCLOPRAMIDE 5 MG/ML 2 ML VIAL IVP PRN (04:33)
[2025-02-07] MEDS ORDERED: oxyCODONE-APAP 5-325MG 1 EACH TAB PO PRN (08:29)
--- NOTE | 2025-02-07 08:43 | P.HPOR ---
History of Present Illness H&P Date: 02/07/25 The patient is a very pleasant 79-year-old female with a past medical history significant for chronic low back pain and symptomatic right hip arthritis who is presently admitted after a ground-level fall. The patient states that she was coming down stairs yesterday when she lost her balance and fell. She was immediately painful in her right hip and was unable to get up and ambulate. She called to her 2 sons who live with her. She was unable to walk and had severe right hip pain so she was brought to the ER. X-rays showed a minimally displaced greater trochanteric fracture. Due to the patient's pain and inability to ambulate she was admitted to [facility]. This morning she is complaining of pain in her right hip. She says she is unable to ambulate. Any movement particularly hip flexion increases her pain. She does state that she has chronic right hip and back pain for which she takes Percocet. She has not sure who prescribes this. She has no other complaints this morning. Past Medical History Past Medical History: Asthma, COPD, Hypertension Additional Past Medical History / Comment(s): diverticulosis History of Any Multi-Drug Resistant Organisms: None Reported Past Surgical History: Appendectomy, Hysterectomy, Tonsillectomy Additional Past Surgical History / Comment(s): breast biopsy Past Anesthesia/Blood Transfusion Reactions: Postoperative Nausea & Vomiting (PONV) Additional Past Anesthesia/Blood Transfusion Reaction / Comment(s): No hx. blood transfusion Past Psychological History: No Psychological Hx Reported Smoking Status: Former smoker Past Alcohol Use History: None Reported Past Drug Use History: None Reported Medications and Allergies Home Medications Medication Instructions Recorded Confirmed Type Albuterol Inhaler [Ventolin Hfa 2 puff INHALATION RT-Q6H PRN 02/05/23 03/14/23 History Inhaler] Atorvastatin [Lipitor] 10 mg PO DAILY 02/05/23 03/14/23 History Cholecalciferol [Vitamin D3 (25 25 mcg PO BID 02/05/23 03/14/23 History Mcg = 1000 Iu)] Colon Probiotic 1 cap PO DAILY 02/05/23 03/14/23 History Fluticasone Propion/Salmeterol 1 puff INHALATION RT-BID 02/05/23 03/14/23 History [Fluticasone-Salmeterol 500-50] Indapamide [Lozol] 1.25 mg PO DAILY 02/05/23 03/14/23 History Meloxicam [Mobic] 15 mg PO DAILY 02/05/23 03/14/23 History Multivitamins, Thera [Multivitamin 1 tab PO DAILY 02/05/23 03/14/23 History (formulary)] Perindopril Erbumine [Aceon] 8 mg PO DAILY 02/05/23 03/14/23 History dilTIAZem HCL [dilTIAZem HCL 24Hr 240 mg PO DAILY 02/05/23 03/14/23 History ER (Xr)] oxyCODONE-APAP 5-325MG [Percocet 1 tab PO TID PRN 02/05/23 03/14/23 History 5-325 mg] Aspirin 81 mg PO DAILY tab 03/19/23 Rx Loratadine [Claritin] 5 mg PO Q12HR #10 tab 03/19/23 Rx predniSONE 10 mg PO DAILY #30 tab 03/19/23 Rx Ibuprofen [Motrin] 600 mg PO Q8HR PRN #30 tab 11/13/24 Rx Allergies Allergy/AdvReac Type Severity Reaction Status Date / Time clarithromycin Allergy Unknown Verified 02/06/25 18:13 Penicillins Allergy Unknown Verified 02/06/25 18:13 Physical Examination The patient is resting comfortably in her bed. She is alert and able to answer questions. Her head is normocephalic and atraumatic. Her cervical spine is nontender and midline. She demonstrates nonlabored breathing with symmetric chest expansion. Her abdomen is mildly obese and nontender. She has palpable peripheral pulses. Exam of the bilateral upper extremities and left lower extremities show no obvious deformities and no tenderness or pain with passive range of motion. A focused exam of the right lower extremity was conducted. On inspection there are no obvious deformities. There is no overlying skin ch anges or scars at the right hip. She has pain with any attempts at passive range of motion of the right hip. Her thigh and calf are soft. She is able to actively plantarflex and dorsiflex her ankle and her toes. Results X-rays and CT scan of the right hip and femur show a small minimally displaced greater trochanteric fracture and severe right hip osteoarthritis. There is also severe degenerative disc disease in the visualized portion of the lumbar spine. - Labs Labs: Abnormal Lab Results - Last 24 Hours (Table) 02/06/25 02/06/25 02/07/25 Range/Units 20:23 20:23 02:50 WBC 16.04 H 14.31 H (4.50-10.00) 10*3/uL Immature Gran # 0.10 H 0.08 H (0.00-0.04) 10*3/uL Neutrophils # 12.17 H 11.27 H (1.80-7.70) 10*3/uL Monocytes # 1.34 H 1.33 H (0.20-1.00) 10*3/uL Sodium 131 L (137-145) mmol/L Chloride 97 L (98-107) mmol/L BUN 21 H (7-17) mg/dL Creatinine (0.52-1.04) mg/dL Glucose 121 H (74-99) mg/dL AST (14-36) U/L 02/07/25 Range/Units 02:50 WBC (4.50-10.00) 10*3/uL Immature Gran # (0.00-0.04) 10*3/uL Neutrophils # (1.80-7.70) 10*3/uL Monocytes # (0.20-1.00) 10*3/uL Sodium 129 L (137-145) mmol/L Chloride 95 L (98-107) mmol/L BUN 21 H (7-17) mg/dL Creatinine 0.44 L (0.52-1.04) mg/dL Glucose 118 H (74-99) mg/dL AST 44 H (14-36) U/L H & H 02/06/25 02/07/25 Range/Units 20:23 02:50 Hgb 13.4 12.8 (12.0-15.0) g/dL Hct 39.0 38.6 (37.2-46.3) % Coagulation 02/06/25 Range/Units 20:23 INR 0.9 (<1.2) Result Diagrams: 02/07/25 02:50 02/07/25 02:50 Assessment and Plan Assessment: Right minimally displaced greater trochanter fracture Severe right hip osteoarthritis Multilevel lumbar degenerative disc disease Chronic pain on Percocet at baseline Plan: I reviewed the patient's imaging with her this morning. She has a minimally displaced greater trochanter fracture and advanced right hip arthritis. My recommendation was to obtain an MRI to rule out any extension across the neck or intertrochanteric region. An MRI was ordered. She is to remain nonweightbearing on the right leg and on bedrest until the MRI. We briefly discussed that since she takes Percocet at baseline she may have issues with pain control. Her home dose of Percocet was ordered in addition to IV Dilaudid. Internal medicine has been consulted for perioperative medical management. Further recommendations regarding treatment of her right hip injury pending MRI. Time with Patient: Greater than 30
[2025-02-07] MEDS: oxyCODONE-APAP 5-325MG 1 EACH TAB PO PRN (08:44)
[2025-02-07] MEDS ORDERED: ALBUTEROL NEBULIZED 2.5 MG/3 ML INHALATION PRN (15:32)
[2025-02-07] MEDS: GABAPENTIN 300 MG CAP PO SCH (15:54)
[2025-02-07] MEDS: MELOXICAM 7.5 MG TAB PO PRN (18:34)
--- NOTE | 2025-02-07 20:21 | P.CONS ---
History of Present Illness - Reason for Consult Consult date: 02/07/25 Medical management Requesting physician: Mane Maravilla - Chief Complaint Fall - History of Present Illness This is a pleasant 79-year-old patient, follows with Dr. Alcaraz. Patient also follows with Dr. Arnett from pulmonary and Dr. Caputo from cardiology. Patient took a fall yesterday. Mechanical. Patient was walking in an incline tripped and fell on the right hip. Did not hit her head. No palpitation no prodromal symptoms.. There is a question about hairline fracture. Not weightbearing. MRI ordered by orthopedics Dr. Maravilla. Review of systems: GEN.: Tired EYES: None HEENT: None NECK: None RESPIRATORY: As above CARDIOVASCULAR: As above GASTROINTESTINAL: None GENITOURINARY: None MUSCULOSKELETAL: Multiple joint pain LYMPHATICS: None HEMATOLOGICAL: None PSYCHIATRY: None NEUROLOGICAL: None Social history: Ex-smoker, lives with her sons. No alcohol. Physical examination: VITAL SIGNS: 97.4, 68, 16, 134 x 77, 94% room GENERAL: BMI 28.5, laying in bed awake comfortable EYES: Pupils equal. Conjunctiva normal. HEENT: External appearance of nose and ears normal, oral cavity grossly normal. NECK: JVD not raised; masses not palpable. HEART: First and second heart sounds are normal; no edema. LUNGS: Respiratory rate normal; decreased breath sounds, . ABDOMEN: Soft, nontender, liver spleen not palpable, no masses palpable. PSYCH: Alert and oriented x3; mood and affect anxious. MUSCULOSKELETAL:No Clubbing/cyanosis;muscles-grossly intact. OA. Limited range of motion right hip NEUROLOGICAL: Cranial nerves grossly intact; no facial asymmetry, power and sensation grossly intact. LYMPHATICS: No lymph nodes palpable in the axilla and neck INVESTIGATIONS, reviewed in the clinical context: February 07, 2025: White count 14.3 hemoglobin 12.8 platelets 204 sodium 129 potassium 3.9. 21 creatinine 0.44 Assessment and plan: - Possible hairline fracture right femur. Being followed by Dr. Maravilla orthopedics. Nonweightbearing. MRI of the right hip. 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 Will get a baseline EKG chest x-ray. Denies any cardiac history. Await MRI of the right hip. Past Medical History Past Medical History: Asthma, COPD, Hypertension Additional Past Medical History / Comment(s): diverticulosis History of Any Multi-Drug Resistant Organisms: None Reported Past Surgical History: Appendectomy, Hysterectomy, Tonsillectomy Additional Past Surgical History / Comment(s): breast biopsy Past Anesthesia/Blood Transfusion Reactions: Postoperative Nausea & Vomiting (PONV) Additional Past Anesthesia/Blood Transfusion Reaction / Comm: No hx. blood transfusion Past Psychological History: No Psychological Hx Reported Smoking Status: Former smoker Past Alcohol Use History: None Reported Past Drug Use History: None Reported Medications and Allergies Home Medications Medication Instructions Recorded Confirmed Type Albuterol Inhaler [Ventolin Hfa 2 puff INHALATION RT-Q6H PRN 02/05/23 02/07/25 History Inhaler] Atorvastatin [Lipitor] 10 mg PO HS 02/05/23 02/07/25 History Fluticasone Propion/Salmeterol 2 puff INHALATION RT-BID 02/05/23 02/07/25 History [Fluticasone-Salmeterol 500-50] Indapamide [Lozol] 1.25 mg PO DAILY 02/05/23 02/07/25 History Meloxicam [Mobic] 15 mg PO DAILY PRN 02/05/23 02/07/25 History dilTIAZem HCL [dilTIAZem HCL 24Hr 240 mg PO DAILY 02/05/23 02/07/25 History ER (Xr)] oxyCODONE-APAP 5-325MG [Percocet 1 tab PO Q8H PRN 02/05/23 02/07/25 History 5-325 mg] Gabapentin [Neurontin] 300 mg PO TID 02/07/25 02/07/25 History Perindopril Erbumine (Aceon) 8 mg PO DAILY 02/07/25 02/07/25 History Potassium Chloride ER [K-Dur 10] 10 meq PO DAILY 02/07/25 02/07/25 History Allergies Allergy/AdvReac Type Severity Reaction Status Date / Time clarithromycin Allergy Unknown Verified 02/07/25 11:47 Penicillins Allergy Unknown Verified 02/07/25 11:47 Physical Exam Vitals: Vital Signs Temp Pulse Pulse Resp BP BP BP 02/07/25 14:00 98.3 F 81 18 155/82 02/07/25 06:58 98.1 F 73 18 130/74 02/07/25 02:47 18 02/07/25 02:00 97.4 F L 68 16 134/77 02/06/25 22:40 98.1 F 74 16 150/81 02/06/25 21:55 98.5 F 70 18 124/75 02/06/25 18:03 98.5 F 67 16 167/75 Pulse Ox 02/07/25 14:00 96 02/07/25 06:58 95 02/07/25 02:47 02/07/25 02:00 94 L 02/06/25 22:40 91 L 02/06/25 21:55 94 L 02/06/25 18:03 94 L Intake and Output 02/07/25 02/07/25 02/07/25 06:59 14:59 22:59 Other: Voiding Method External Catheter Results CBC & Chem 7: 02/07/25 02:50 02/07/25 02:50 Labs: Abnormal Lab Results - Last 24 Hours (Table) 02/06/25 02/06/25 02/07/25 Range/Units 20:23 20:23 02:50 WBC 16.04 H 14.31 H (4.50-10.00) 10*3/uL Immature Gran # 0.10 H 0.08 H (0.00-0.04) 10*3/uL Neutrophils # 12.17 H 11.27 H (1.80-7.70) 10*3/uL Monocytes # 1.34 H 1.33 H (0.20-1.00) 10*3/uL Sodium 131 L (137-145) mmol/L Chloride 97 L (98-107) mmol/L BUN 21 H (7-17) mg/dL Creatinine (0.52-1.04) mg/dL Glucose 121 H (74-99) mg/dL AST (14-36) U/L 02/07/25 Range/Units 02:50 WBC (4.50-10.00) 10*3/uL Immature Gran # (0.00-0.04) 10*3/uL Neutrophils # (1.80-7.70) 10*3/uL Monocytes # (0.20-1.00) 10*3/uL Sodium 129 L (137-145) mmol/L Chloride 95 L (98-107) mmol/L BUN 21 H (7-17) mg/dL Creatinine 0.44 L (0.52-1.04) mg/dL Glucose 118 H (74-99) mg/dL AST 44 H (14-36) U/L
--- NOTE | 2025-02-07 20:55 | XR ---
EXAMINATION TYPE: XR chest 1V portable DATE OF EXAM: 02/07/2025 8:45 PM COMPARISON: 11/13/2024 CLINICAL INDICATION: Female, 79 years old with history of Preop, TECHNIQUE: XR chest 1V portable views of the chest are obtained. FINDINGS: Demonstrated are scattered senescent parenchymal change. There is no evidence for focal infiltrate. The heart is stable. Hilar and mediastinal structures are within normal limits. Degenerative changes are seen of the dorsal spine. IMPRESSION: 1. Chronic changes without evidence for acute pulmonary disease. [facility], , 02/07/2025 8:52 PM
[2025-02-07] MEDS: ENOXAPARIN 40 MG/0.4 ML SYRINGE SQ SCH (21:17)
[2025-02-07] MEDS: ATORVASTATIN 10 MG TAB PO SCH (21:17)
[2025-02-07] MEDS: diazePAM 2 MG TAB PO STA (21:27)
[2025-02-07] MEDS: SYMBICORT 160-4.5 MCG INHALER INHALATION SCH (21:45)
[2025-02-08] MEDS: lisinopriL 20 MG TAB PO SCH (07:57)
[2025-02-08] MEDS: hydroCHLOROthiazide 12.5 MG CAP PO SCH (07:57)
[2025-02-08] MEDS: DILTIAZEM CD 240 MG CAP.ER.24H PO SCH (07:57)
[2025-02-08] MEDS: POTASSIUM CHLORIDE ER 10 MEQ TAB.ER.PRT PO SCH (07:58)
--- NOTE | 2025-02-08 08:10 | P.PN ---
Subjective Progress Note Date: 02/08/25 02/07/25 The patient is a very pleasant 79-year-old female with a past medical history significant for chronic low back pain and symptomatic right hip arthritis who is presently admitted after a ground-level fall. The patient states that she was coming down stairs yesterday when she lost her balance and fell. She was immediately painful in her right hip and was unable to get up and ambulate. She called to her 2 sons who live with her. She was unable to walk and had severe right hip pain so she was brought to the ER. X-rays showed a minimally displaced greater trochanteric fracture. Due to the patient's pain and inability to ambulate she was admitted to [facility]. This morning she is complaining of pain in her right hip. She says she is unable to ambulate. Any movement particularly hip flexion increases her pain. She does state that she has chronic right hip and back pain for which she takes Percocet. She has not sure who prescribes this. She has no other complaints this morning. 02/08/2025: No acute events overnight. Patient is doing relatively well this morning. The pain in their hip has continued. We discussed difficulties with acute on chronic pain control due to patient's home prescription of Percocet. Objective - Vital Signs Vital signs: Vital Signs Temp 98.5 F 02/08/25 01:33 Pulse 93 02/08/25 01:33 Resp 17 02/08/25 01:33 BP 155/78 02/08/25 01:33 Pulse Ox 97 02/08/25 01:33 FiO2 Intake & Output 02/07/25 02/08/25 02/08/25 18:59 06:59 18:59 Intake Total 760 Output Total 500 Balance 760 -500 Intake: Oral 760 Output: Urine 500 Other: Voiding Method External Catheter External Catheter # Voids 4 # Bowel Movements 0 - Exam The patient is resting comfortably in her bed. She is alert and able to answer questions. Her head is normocephalic and atraumatic. She demonstrates non labored breathing with symmetric chest expansion. On inspection there are no obvious deformities. There is no overlying skin changes or scars at the right hip. She has pain with any attempts at passive range of motion of the right hip. Her thigh and calf are soft. She is able to actively plantarflex and dorsiflex her ankle and her toes. - Labs CBC & Chem 7: 02/07/25 02:50 02/07/25 02:50 Assessment and Plan Assessment: Right minimally displaced greater trochanter fracture Severe right hip osteoarthritis Multilevel lumbar degenerative disc disease Chronic pain on Percocet at baseline Plan: An MRI was ordered. She is to remain nonweightbearing on the right leg and on bedrest until the MRI. We briefly discussed that since she takes Percocet at baseline she may have i ssues with pain control. Her home dose of Percocet was ordered in addition to IV Dilaudid. Internal medicine has been consulted for perioperative medical management. Further recommendations regarding treatment of her right hip injury pending MRI.
[2025-02-08] MEDS: diazePAM 2 MG TAB PO ONE (11:25)
--- NOTE | 2025-02-08 15:08 | MR ---
EXAMINATION TYPE: MR hip RT wo con DATE OF EXAM: 02/08/2025 1:01 PM COMPARISON: Radiograph 02/06/2025 CLINICAL INDICATION: Female, 79 years old with history of known GT fracture, rule out extension, Rt h ip fx, rule out extension TECHNIQUE: Multiplanar, multisequence images of the right hip without IV contrast. FINDINGS: Only coronal and axial T1 sequences could be acquired. The patient discontinued the exam due to pain level. These sequences show comminuted fracture of the greater tuberosity with oblique intertrochanteric ext ension to just above the lesser trochanter. No displacement. There is moderate to severe degenerative change right hip. SI joints and sacrum appear intact. Osteit is pubis. No additional acute fracture is seen. Uterus surgically absent. Sigmoid diverticulosis. Neither ovary is visualized. There is pelvic floor relaxation. IMPRESSION: 1. Nondisplaced intertrochanteric fracture proximal right femur with comminution of the greater troch anter. 2. Moderate right hip OA. 3. Sigmoid diverticulosis, status post hysterectomy, and pelvic floor relaxation. [facility], , 02/08/2025 3:05 PM
[2025-02-08] MEDS ORDERED: HYDROmorphone 2 MG/ML 1 ML SYRINGE IVP PRN (18:20)
[2025-02-08] MEDS: HYDROmorphone 1 MG/ML 1 ML SYRINGE IVP PRN (18:32)
[2025-02-08] MEDS: PROCHLORPERAZINE INJ 10 MG/2 ML VIAL IVP PRN (19:43)
--- NOTE | 2025-02-08 20:33 | P.PN ---
Progress Note - Text Progress Note Date: 02/08/25 - Chief Complaint Fall - History of Present Illness This is a pleasant 79-year-old patient, follows with Dr. Alcaraz. Patient also follows with Dr. Arnett from pulmonary and Dr. Caputo from cardiology. Patient took a fall yesterday. Mechanical. Patient was walking in an incline tripped and fell on the right hip. Did not hit her head. No palpitation no prodromal symptoms.. There is a question about hairline fracture. Not weightbearing. MRI ordered by orthopedics Dr. Maravilla. February 08: Patient was seen this afternoon. If MRI shows: Nondisplaced intertrochanteric fracture proximal right femur with comminution of the greater trochanter. Will place on fluid restriction because of with a low sodium. DC hydrochlorothiazide. Patient is n.p.o. after midnight for probable surgery tomorrow Active Medications Albuterol Sulfate (Albuterol Nebulized 2.5 Mg/3 Ml) 2.5 mg INHALATION RT-Q6H PRN PRN Reason: Shortness Of Breath Atorvastatin Calcium (Atorvastatin 10 Mg Tab) 10 mg PO HS [facility] Last Admin: 02/07/25 21:17 Dose: 10 mg Budesonide/Formoterol Fumarate (Symbicort 160-4.5 Mcg Inhaler) 2 puff INHALATION RT-BID [facility] Last Admin: 02/08/25 08:02 Dose: 2 puff Diltiazem HCl (Diltiazem Cd 240 Mg Cap.Er.24h) 240 mg PO DAILY [facility] Last Admin: 02/08/25 07:57 Dose: 240 mg Enoxaparin Sodium (Enoxaparin 40 Mg/0.4 Ml Syringe) 40 mg SQ DAILY [facility] Last Admin: 02/08/25 07:58 Dose: 40 mg Gabapentin (Gabapentin 300 Mg Cap) 300 mg PO TID [facility] Last Admin: 02/08/25 15:06 Dose: 300 mg Hydrochlorothiazide (Hydrochlorothiazide 12.5 Mg Cap) 12.5 mg PO DAILY [facility] Last Admin: 02/08/25 07:57 Dose: 12.5 mg Hydromorphone HCl (Hydromorphone 0.5 Mg/0.5 Ml Syringe) 0.5 mg IVP Q3HR PRN PRN Reason: Pain (1 - 6) PO Intolerant Hydromorphone HCl (Hydromorphone 1 Mg/Ml 1 Ml Syringe) 1 mg IVP Q3HR PRN PRN Reason: Pain 7-8 PO Intolerant Last Admin: 02/08/25 18:32 Dose: 1 mg Hydromorphone HCl (Hydromorphone 2 Mg/Ml 1 Ml Syringe) 1.5 mg IVP Q3HR PRN PRN Reason: Pain 9-10 PO Intolerant Lisinopril (Lisinopril 20 Mg Tab) 20 mg PO DAILY [facility] Last Admin: 02/08/25 07:57 Dose: 20 mg Meloxicam (Meloxicam 7.5 Mg Tab) 15 mg PO DAILY PRN PRN Reason: ARTHRITIS PAIN Last Admin: 02/08/25 14:31 Dose: 15 mg Naloxone HCl (Naloxone 0.4 Mg/Ml 1 Ml Vial) 0.2 mg IV Q2M PRN PRN Reason: Opioid Reversal Ondansetron HCl (Ondansetron 4 Mg/2 Ml Vial) 4 mg IVP Q8HR PRN PRN Reason: Nausea And Vomiting Last Admin: 02/08/25 16:41 Dose: 4 mg Oxycodone/Acetaminophen (Oxycodone-Apap 5-325mg 1 Each Tab) 1 each PO Q6HR PRN PRN Reason: Mild Breakthrough Pain (1-3) Oxycodone/Acetaminophen (Oxycodone-Apap 5-325mg 1 Each Tab) 2 each PO Q6HR PRN PRN Reason: Moderate to Severe Pain (4-10) Last Admin: 02/08/25 13:37 Dose: 2 each Potassium Chloride (Potassium Chloride Er 10 Meq Tab.Er.Prt) 10 meq PO DAILY [facility] Last Admin: 02/08/25 07:58 Dose: 10 meq Prochlorperazine Edisylate (Prochlorperazine Inj 10 Mg/2 Ml Vial) 5 mg IVP Q6H PRN PRN Reason: Nausea And Vomiting Last Admin: 02/08/25 19:43 Dose: 5 mg Social history: Ex-smoker, lives with her sons. No alcohol. Physical examination: VITAL SIGNS: 98.5, 88, 20, 119 x 76, 95% room air GENERAL: Reclining in bed, eating lunch EYES: Pupils equal. Conjunctiva normal. HEENT: External appearance of nose and ears normal, oral cavity grossly normal. NECK: JVD not raised; masses not palpable. HEART: First and second heart sounds are normal; no edema. LUNGS: Respiratory rate normal; decreased breath sounds, . ABDOMEN: Soft, nontender, liver spleen not palpable, no masses palpable. PSYCH: Alert and oriented x3; mood and affect anxious. MUSCULOSKELETAL:No Clubbing/cyanosis;muscles-grossly intact. OA. Limited range of motion right hip INVESTIGATIONS, reviewed in the clinical context: Right hip MRI [February 08]: Nondisplaced mid IT fracture proximal right femur with comminution of the greater trochanter. Moderate right hip OA. Sigmoid diverticulosis. Chest x-ray film personally reviewed by me-[portable] borderline cardiomegaly and AP film EKG tracing personally reviewed by me-normal sinus rhythm February 07, 2025: White count 14.3 hemoglobin 12.8 platelets 204 sodium 129 potassium 3.9. 21 creatinine 0.44 Assessment and plan: -Acute nondisplaced IT fracture proximal right femur with comminution of the greater trochanter secondary to fall. Being followed by Dr. Maravilla orthopedics. Nonweightbearing. 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 Fair exercise tolerance. No prior cardiac history. Patient is low to moderate risk for perioperative complications. With no contraindications for surgery. Discussed with patient. Medically stable otherwise to proceed with surgery Thank you Dr. Maravilla Past Medical History Past Medical History: Asthma, COPD, Hypertension Additional Past Medical History / Comment(s): diverticulosis History of Any Multi-Drug Resistant Organisms: None Reported Past Surgical History: Appendectomy, Hysterectomy, Tonsillectomy Additional Past Surgical History / Comment(s): breast biopsy Past Anesthesia/Blood Transfusion Reactions: Postoperative Nausea & Vomiting (PONV) Additional Past Anesthesia/Blood Transfusion Reaction / Comm: No hx. blood transfusion Past Psychological History: No Psychological Hx Reported Smoking Status: Former smoker Past Alcohol Use History: None Reported Past Drug Use History: None Reported
[2025-02-09 03:46] LABS: Basophils # (A) 0.05 10*3/uL (0.00-0.10); Basophils % (A) 0.4 %; Eosinophils # (A) 0.12 10*3/uL (0.04-0.35); Eosinophils % (A) 0.9 %; HCT 35.3 % (37.2-46.3); Lymphocytes # (A) 2.18 10*3/uL (0.90-5.00); Lymphocytes % (A) 16.2 %; MCH 31.8 pg (27.0-32.0); MCV 93.6 fL (80.0-97.0); Mean Platelet Volume 11.2 fL (9.5-12.2); Monocytes # (A) 1.66 10*3/uL (0.20-1.00); Monocytes % (A) 12.3 %; Neutrophils % (A) 69.9 %; Platelet Count 189 10*3/uL (140-440); RBC 3.77 10*6/uL (4.10-5.20); RDW 14.2 % (11.5-14.5); WBC 13.45 10*3/uL (4.50-10.00)
[2025-02-09 04:04] LABS: African American GFR (CKD) >90 (>60 ml/min/1.73 sqM); Anion Gap 6 mmol/L; Blood Urea Nitrogen 25 mg/dL (7-17); Calcium 9.2 mg/dL (8.4-10.2); Carbon Dioxide 31 mmol/L (22-30); Chloride 92 mmol/L (98-107); Glucose 112 mg/dL (74-99); Non-African American GFR(CKD) 83 (>60 ml/min/1.73 sqM); Potassium 3.5 mmol/L (3.5-5.1); Sodium 129 mmol/L (137-145)
[2025-02-09] MEDS: IV FLUID CONTINUATION 1,000 ML IV ONE (12:20)
[2025-02-09] MEDS: LACTATED RINGERS 1,000 ML BAG IV STA (12:32)
[2025-02-09] MEDS: DEXAMETHASONE SOD PHOSPHATE 4 MG/ML 1 ML VIAL IVP STA (13:20)
[2025-02-09] MEDS: MIDAZOLAM 2 MG/2 ML VIAL IV ONE (13:22)
[2025-02-09] MEDS ORDERED: TRANEXAMIC 1,000 MG/100ML-NACL 1,000 MG in SALINE 1 100ML.BAG IVPB PRN (13:45)
--- NOTE | 2025-02-09 13:51 | P.PN ---
Progress Note - Text The patient's MRI of the right hip shows a complete, minimally displaced basicervical intertrochanteric hip fracture and comminution of the greater trochanter. I had a long discussion with the patient last evening and again with the patient and her family this afternoon. We discussed both nonsurgical treatment and surgery. Given the patient's history of chronic pain, age, and wishes to regain mobility we agreed to proceed with surgical intervention. We discussed both stabilization with an intramedullary hip screw versus total hip replacement. While the patient does have arthritic changes on the hip she reports minimal to no pain in her hip or groin. Given this and the patient's overall clinical picture my recommendation was to stabilize the fracture as opposed to performing a total hip replacement. We discussed that a total hip replacement for an intertrochanteric hip fracture would involve a diaphyseal engaging revision type stem. Since the patient has minimal to no pain in her right hip we all agreed that prophylactic stabilization with a short gamma nail would be in her best interest. The patient understands the potential for symptomatic hip arthritis requiring conversion total hip arthroplasty at a later date. Both the patient and her family gave their consent to go forward with a short right gamma nail.
[2025-02-09] MEDS ORDERED: NEOSTIGMINE 1 MG/ML 10 ML VIAL ONE (14:00)
[2025-02-09] MEDS ORDERED: fentaNYL (PF) 50 MCG/ML 2 ML AMP ONE (14:00)
[2025-02-09] MEDS ORDERED: PROPOFOL 10 MG/ML 20 ML VIAL IV ONE (14:00)
[2025-02-09] MEDS ORDERED: PHENYLEPHRINE-0.9% NACL SYG 1,000 MCG/10 ML SYRINGE ONE (14:00)
[2025-02-09] MEDS ORDERED: LIDOCAINE 1% INJ 10MG/ML (20 ML MDV) ONE (14:00)
[2025-02-09] MEDS ORDERED: TRANEXAMIC 1,000 MG/100ML-NACL PREMIX BAG ONE (14:00)
[2025-02-09] MEDS ORDERED: SUGAMMADEX SODIUM 100 MG/ML SYR IV ONE (14:00)
[2025-02-09] MEDS ORDERED: GLYCOPYRROLATE 0.2 MG/ML 2 ML VIAL ONE (14:00)
[2025-02-09] MEDS ORDERED: ROCURONIUM 10 MG/ML (5 ML VIAL) IV ONE (14:00)
[2025-02-09] MEDS ORDERED: SUCCINYLCHOLINE CHLORIDE 200 MG/10 ML VIAL IV ONE (14:00)
[2025-02-09] MEDS: SODIUM CHLORIDE 0.9% 100 ML with ceFAZolin 2,000 MG IV ONE (14:29)
--- NOTE | 2025-02-09 15:20 | XR ---
EXAMINATION TYPE: XR Hip Limited RT, FL guidance operating room Intraoperative/procedural fluoroscopi c services were provided. CLINICAL INDICATION:Female, 79 years old with history of RIGHT HIP GAMMA NAIL IN OR; , PH FINDINGS: Postsurgical changes from ORIF right hip with intramedullary nail and fixation screw. Hardware appear s intact with appropriate alignment. No radiographic evidence for complication. Total fluoroscopy time is 56.7 seconds. DAP: 5.5034 Gycm2 Please see the operative/procedural note for further details. [facility], , 02/09/2025 3:17 PM
[2025-02-09] MEDS ORDERED: HYDROmorphone 0.5 MG/0.5 ML SYRINGE IVP PRN ×2 (15:26)
[2025-02-09] MEDS ORDERED: MAGNESIUM HYDROXIDE 2,400 MG/30 ML CUP PO PRN (15:26)
[2025-02-09] MEDS ORDERED: NALOXONE 0.4 MG/ML 1 ML VIAL IV PRN (15:26)
[2025-02-09] MEDS ORDERED: hydrOXYzine pamoate 25 MG CAP PO PRN (15:26)
[2025-02-09] MEDS ORDERED: diazePAM 5 MG TAB PO PRN ×2 (15:26)
--- NOTE | 2025-02-09 15:26 | P.OP ---
Date of Procedure: 02/09/25 Preoperative Diagnosis: 1. Minimally displaced right intertrochanteric hip fracture 2. Pre-existing right hip arthritis, minimally symptomatic 3. Chronic degenerative disc disease, lumbar spine 4. Chronic pain on Percocet at baseline Postoperative Diagnosis: Same Procedure(s) Performed: Operative fixation of right intertrochanteric hip fracture with short intramedullary hip screw Anesthesia: CALOS Surgeon: Mane Maravilla Sales Representative Metals #1: Stephen Smith Estimated Blood Loss (ml): 200 IV fluids (ml): 700 Pathology: none sent Condition: stable Disposition: PACU Indications for Procedure: The patient is a very pleasant 79-year-old female who sustained a ground-level fall resulting in right hip pain. She was seen in the ER and admitted under my care. Her x-rays and CT scan showed a comminuted greater trochanter fracture. An MRI was obtained due to her pain and inability to ambulate which showed intertrochanteric extension. I met with the patient and her family discussed treatment options. We ultimately decided to perform a short intramedullary hip screw because her hip arthritis was minimally symptomatic and there was comminution of the greater trochanter. The family voiced her understanding of the potential for symptomatic hip arthritis requiring conversion to a total hip arthroplasty. We all agreed though at this time operative fixation would be in the patient's best interest to expedite recovery and allow early weightbearing. I met with the patient and their family preoperatively to discuss their injury and treatment options. They have an extra-capsular, intertrochanteric hip fracture and my recommendation was to stabilize the fracture with an intramedullary hip screw to facilitate early mobilization. We discussed the potential risks and complications of this surgical procedure including but certainly not limited to risks from anesthesia, superficial infection, deep infection, fracture nonunion, fracture malunion, hardware failure including broken hardware, varus collapse with lag screw cut out of the femoral head, progression of hip arthritis, limb length discrepancy, symptomatic hardware, need for further surgery including hardware removal and conversion to arthroplasty, DVT, PE, acute coronary event, pressure ulcers, urinary tract infection, failure to thrive, an inability to regain preinjury level of function, and possibly . The patient and their family understand these potential complications and also awknowledge that other less common complications are possible. They provided both their verbal and written consent to go forward with operative fixation of their hip fracture with an intramedullary hip screw. Description of Procedure: The patient was identified in preoperative holding and the correct operative extremity was marked with my initials. I reviewed the consent form with the patient and their family and all of their questions were answered. The patient was then brought back to the operating room by anesthesia. Anesthesia, preoperative antibiotics, and tranexamic acid were given by the anesthesia team while on the gurney. Both ankles were padded with webril and boots for the Placedo table were applied. The patient was then carefully transferred onto the Placedo table. A perineal post was immediately placed. The contralateral arm was secured on a well-padded arm hartman. The ipsilateral arm was draped across the chest and secured with a pillow, foam, and paper tape to allow access to the proximal femur. Nonsterile drapes were applied to the operative extremity. The height of the table was elevated and the contralateral extremity was dropped towards the floor to facilitate imaging. A timeout was performed identifying the correct patient, operative extremity, and procedure. Fluoroscopy was brought in to assess the fracture. A provisional reduction was performed using longitudinal traction, adduction, and internal rotation. An AP and lateral view were obtained to assess the reduction. The operative extremity was then prepped and draped in the standard sterile fashion. A straight incision was made proximal to the tip of the greater trochanter and extended proximally for 3 cm. Skin and subcutaneous tissues were incised sharply. The underlying fascia was incised in line with the skin incision. An awl was placed just medial to the tip of the greater trochanter on the AP view and colinear with the canal on the lateral view. A 3.2 mm guide pin was then advanced into the proximal femur. The position of the guidepin was verified with fluoroscopy. An opening reamer and soft tissue cannula were placed over the guidepin and used to open the proximal femur to the level of the lesser trochanter. The 3.2 mm guide pin and opening reamer were removed. A long ball- tipped guide wire was placed into the femur. A reamer was then placed by hand over the ball-tipped guidewire to make sure the canal would accomodate the diameter of the nail. A short gamma nail was dispensed, hooked up to the targeting arm and I verified that the trochar through the targeting arm lined up with the slots on the nail. The nail was then impacted into the proximal femur until the appropriate depth had been reached. A small stab incision was made over the lateral aspect of the femur using the targeting arm as a reference for the lag screw. Incision was carried down to the skin and fascia down to the lateral cortex of the femur. The trocar was then placed up to the lateral cortex of the femur and a guidepin was placed in the center of the femoral head on both the AP and lateral view. Once the position of the guidewire was verified to have an appropriate tip-apex distance, we reamed to appropriate depth and placed a lag screw over the guidewire and into the femoral head. The position of the lag screw was assessed with fluoroscopy. The guidewire was then removed from the femoral head. The set screw was placed proximally, brought fully down and then released a quarter turn to allow compression. A final stab incision was made over the lateral femur at the site of the distal interlocking screw, again using the targeting arm as a reference. The trocar and sleeve were placed to the lateral cortex of the femur. We then drilled and placed a distal interlocking screw. Final fluoroscopic images were taken showing excellent reduction of the fracture and appropriate position of the implants. All wounds were thoroughly irrigated and closed in layers. Sterile dressings were applied. The drapes were taken down, the patient was transferred off the Placedo table, and was brought to recovery having tolerated the procedure well. Stephen Smith PA-C was required as a skilled design assistant due to complexity of surgery for patient positioning, draping, retraction, closure of wound, and jg lication of dressing. PLAN: The patient can weight-bear as tolerated on their operative extremity. 2 doses of postoperative antibiotics. DVT prophylaxis with aspirin 81 mg twice a day starting the day of surgery. Dressing change on postoperative day #2. Appreciate Internal Medical assistance with perioperative medical management. Discharge planning in process.
[2025-02-09] MEDS: HYDROmorphone 0.5 MG/0.5 ML SYRINGE IVP PRN ×2 (15:47→16:30)
--- NOTE | 2025-02-09 16:20 | P.PN ---
Progress Note - Text Progress Note Date: 02/09/25 - Chief Complaint Fall - History of Present Illness This is a pleasant 79-year-old patient, follows with Dr. Alcaraz. Patient also follows with Dr. Arnett from pulmonary and Dr. Caputo from cardiology. Patient took a fall yesterday. Mechanical. Patient was walking in an incline tripped and fell on the right hip. Did not hit her head. No palpitation no prodromal symptoms.. There is a question about hairline fracture. Not weightbearing. MRI ordered by orthopedics Dr. Maravilla. February 08: Patient was seen this afternoon. If MRI shows: Nondisplaced intertrochanteric fracture proximal right femur with comminution of the greater trochanter. Will place on fluid restriction because of with a low sodium. DC hydrochlorothiazide. Patient is n.p.o. after midnight for probable surgery tomorrow February 09: Patient was seen this morning. Pending surgery. NPO. Later this afternoon underwent operative fixation with a short intramedullary hip screw. Patient did confirm that she drinks a lot of water. Did explain to her about her low sodium. Will place the patient on fluid restriction. Active Medications Albuterol Sulfate (Albuterol Nebulized 2.5 Mg/3 Ml) 2.5 mg INHALATION RT-Q6H PRN PRN Reason: Shortness Of Breath Atorvastatin Calcium (Atorvastatin 10 Mg Tab) 10 mg PO HS [facility] Last Admin: 02/08/25 21:20 Dose: 10 mg Budesonide/Formoterol Fumarate (Symbicort 160-4.5 Mcg Inhaler) 2 puff INHALAT ION RT-BID [facility] Last Admin: 02/09/25 07:38 Dose: 2 puff Diazepam (Diazepam 5 Mg Tab) 2.5 mg PO Q8HR PRN PRN Reason: Mild Spasms Diazepam (Diazepam 5 Mg Tab) 5 mg PO Q8HR PRN PRN Reason: Moderate to Severe Spasms Diltiazem HCl (Diltiazem Cd 240 Mg Cap.Er.24h) 240 mg PO DAILY [facility] Last Admin: 02/09/25 09:56 Dose: 240 mg Enoxaparin Sodium (Enoxaparin 40 Mg/0.4 Ml Syringe) 40 mg SQ DAILY [facility] Last Admin: 02/09/25 08:54 Dose: Not Given Gabapentin (Gabapentin 300 Mg Cap) 300 mg PO TID [facility] Last Admin: 02/09/25 09:56 Dose: Not Given Hydromorphone HCl (Hydromorphone 0.5 Mg/0.5 Ml Syringe) 0.5 mg IVP Q3HR PRN PRN Reason: Pain (1 - 6) PO Intolerant Last Admin: 02/09/25 16:12 Dose: 0.5 mg Hydromorphone HCl (Hydromorphone 1 Mg/Ml 1 Ml Syringe) 1 mg IVP Q3HR PRN PRN Reason: Pain 7-8 PO Intolerant Last Admin: 02/09/25 10:08 Dose: 1 mg Hydromorphone HCl (Hydromorphone 2 Mg/Ml 1 Ml Syringe) 1.5 mg IVP Q3HR PRN PRN Reason: Pain 9-10 PO Intolerant Hydromorphone HCl (Hydromorphone 0.5 Mg/0.5 Ml Syringe) 0.125 mg IVP Q3HR PRN PRN Reason: Pain Scale 1 to 3 Hydromorphone HCl (Hydromorphone 0.5 Mg/0.5 Ml Syringe) 0.25 mg IVP Q3HR PRN PRN Reason: Pain Scale 4 to 6 Hydromorphone HCl (Hydromorphone 0.5 Mg/0.5 Ml Syringe) 0.5 mg IVP Q3HR PRN PRN Reason: Pain Scale 7 to 10 Hydroxyzine Pamoate (Hydroxyzine Pamoate 25 Mg Cap) 25 mg PO Q4HR PRN PRN Reason: Mild Nausea and/or Anxiety Tranexamic Acid/Sodium (Chloride 1,000 mg/ IV Solution) 100 mls @ 200 mls/hr IVPB Q2HR PRN; Protocol PRN Reason: Bleeding Stop: 02/09/25 23:00 Sodium Chloride (Saline 0.9%) 1,000 mls @ 50 mls/hr IV .Q20H ONE Stop: 02/10/25 11:25 Cefazolin Sodium 2 gm/ (Dextrose/Water) 50 mls @ 100 mls/hr IVPB Q8H [facility]; Protocol Stop: 02/10/25 06:29 Lisinopril (Lisinopril 20 Mg Tab) 20 mg PO DAILY [facility] Last Admin: 02/09/25 09:56 Dose: 20 mg Magnesium Hydroxide (Magnesium Hydroxide 2,400 Mg/30 Ml Cup) 2,400 mg PO DAILY PRN PRN Reason: Constipation Meloxicam (Meloxicam 7.5 Mg Tab) 15 mg PO DAILY PRN PRN Reason: ARTHRITIS PAIN Last Admin: 02/08/25 14:31 Dose: 15 mg Multivitamins (Multivitamins, Thera 1 Each Tab) 1 each PO DAILY@1200 RICHARD Naloxone HCl (Naloxone 0.4 Mg/Ml 1 Ml Vial) 0.2 mg IV Q2M PRN PRN Reason: Opioid Reversal Naloxone HCl (Naloxone 0.4 Mg/Ml 1 Ml Vial) 0.2 mg IV Q2M PRN PRN Reason: Opioid Reversal Ondansetron HCl (Ondansetron 4 Mg/2 Ml Vial) 4 mg IVP Q8HR PRN PRN Reason: Nausea And Vomiting Last Admin: 02/09/25 12:31 Dose: 4 mg Oxycodone/Acetaminophen (Oxycodone-Apap 5-325mg 1 Each Tab) 1 each PO Q6HR PRN PRN Reason: Mild Breakthrough Pain (1-3) Oxycodone/Acetaminophen (Oxycodone-Apap 5-325mg 1 Each Tab) 2 each PO Q6HR PRN PRN Reason: Moderate to Severe Pain (4-10) Last Admin: 02/08/25 13:37 Dose: 2 each Potassium Chloride (Potassium Chloride Er 10 Meq Tab.Er.Prt) 10 meq PO DAILY [facility] Last Admin: 02/09/25 09:56 Dose: 10 meq Prochlorperazine Edisylate (Prochlorperazine Inj 10 Mg/2 Ml Vial) 5 mg IVP Q6H PRN PRN Reason: Nausea And Vomiting Last Admin: 02/08/25 19:43 Dose: 5 mg Senna/Docusate Sodium (Sennosides-Docusate Sodium 1 Each Tab) 2 each PO HS [facility] Social history: Ex-smoker, lives with her sons. No alcohol. Physical examination: VITAL SIGNS: 99.6, 77, 18, 138 x 62, 98% 2 L GENERAL: Comfortable EYES: Pupils equal. Conjunctiva normal. HEENT: External appearance of nose and ears normal, oral cavity grossly normal. NECK: JVD not raised; masses not palpable. HEART: First and second heart sounds are normal; no edema. LUNGS: Respiratory rate normal; decreased breath sounds, . ABDOMEN: Soft, nontender, liver spleen not palpable, no masses palpable. PSYCH: Alert and oriented x3; mood and affect anxious. MUSCULOSKELETAL:No Clubbing/cyanosis;muscles-grossly intact. OA. Limited range of motion right hip INVESTIGATIONS, reviewed in the clinical context: February 09: White count 13.4 hemoglobin 12 potassium 3.5 sodium 129 BUN 25 creatinine 0.7 Right hip MRI [February 08]: Nondisplaced mid IT fracture proximal right femur with comminution of the greater trochanter. Moderate right hip OA. Sigmoid diverticulosis. Chest x-ray film personally reviewed by me-[portable] borderline cardiomegaly and AP film EKG tracing personally reviewed by me-normal sinus rhythm February 07, 2025: White count 14.3 hemoglobin 12.8 platelets 204 sodium 129 potassium 3.9. 21 creatinine 0.44 Assessment and plan: -Acute nondisplaced IT fracture proximal right femur with comminution of the greater trochanter secondary to fall. Being followed by Dr. Maravilla orthopedics. February 09: IM nail screw done today. -COPD in a previous smoker : Fluticasone, salmeterol - Sigmoid diverticulosis, asymptomatic - Hyponatremia from excessive water intake Fluid discussed with patient. Further restriction 1500 cc a day. 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 Repeat labs in the morning. Postop orders per Dr. Maravilla Thank you Dr. Maravilla Past Medical History Past Medical History: Asthma, COPD, Hypertension Additional Past Medical History / Comment(s): diverticulosis History of Any Multi-Drug Resistant Organisms: None Reported Past Surgical History: Appendectomy, Hysterectomy, Tonsillectomy Additional Past Surgical History / Comment(s): breast biopsy Past Anesthesia/Blood Transfusion Reactions: Postoperative Nausea & Vomiting (PONV) Additional Past Anesthesia/Blood Transfusion Reaction / Comm: No hx. blood transfusion Past Psychological History: No Psychological Hx Reported Smoking Status: Former smoker Past Alcohol Use History: None Reported Past Drug Use History: None Reported
[2025-02-09 18:05] LABS: Basophils # (A) 0.04 10*3/uL (0.00-0.10); Basophils % (A) 0.2 %; HCT 35.6 % (37.2-46.3); HGB 11.9 g/dL (12.0-15.0); Lymphocytes # (A) 0.55 10*3/uL (0.90-5.00); Lymphocytes % (A) 3.4 %; MCH 30.9 pg (27.0-32.0); MCHC 33.4 g/dL (32.0-37.0); MCV 92.5 fL (80.0-97.0); Mean Platelet Volume 10.7 fL (9.5-12.2); Monocytes # (A) 0.23 10*3/uL (0.20-1.00); Monocytes % (A) 1.4 %; Neutrophils # (A) 15.32 10*3/uL (1.80-7.70); Neutrophils % (A) 94.6 %; Platelet Count 191 10*3/uL (140-440); RBC 3.85 10*6/uL (4.10-5.20); RDW 13.8 % (11.5-14.5)
[2025-02-09] MEDS: ceFAZolin 2 GM in DEXTROSE 5% IN WATER 50 ML IVPB ONE (18:49)
[2025-02-09] MEDS: SODIUM CHLORIDE 0.9% 1,000 ML IV ONE (20:53)
[2025-02-09] MEDS: ceFAZolin 2 GM in DEXTROSE 5% IN WATER 50 ML IVPB SCH (20:54)
[2025-02-09] MEDS: SENNOSIDES-DOCUSATE SODIUM 1 EACH TAB PO SCH (20:54)
[2025-02-10 08:13] LABS: BUN/Creat Ratio 44.75 Ratio (12.00-20.00); Blood Urea Nitrogen 17.9 mg/dL (9.0-27.0); Calcium 8.5 mg/dL (8.7-10.3); Carbon Dioxide 25.8 mmol/L (21.6-31.8); Chloride 96 mmol/L (96-109); Glucose 136 mg/dL (70-110); Sodium 133 mmol/L (135-145)
[2025-02-10] MEDS: HYDROmorphone 0.5 MG/0.5 ML SYRINGE IVP PRN (10:16)
[2025-02-10] MEDS: MULTIVITAMINS, THERA 1 EACH TAB PO SCH (12:44)
--- NOTE | 2025-02-10 15:01 | P.PN ---
Subjective Progress Note Date: 02/10/25 Postop day #1. No acute events overnight. Patient is doing well this morning. The pain in their hip is moderate. They deny chest pain or shortness of breath. They worked with physical therapy and it was determined the patient will need transferred to [facility] acute rehab at time of discharge. Patient continues to request Dilaudid for IV pain medication. Patient is a chronic pain patient that takes Percocet chronically. Objective - Vital Signs Vital signs: Vital Signs Temp 98.3 F 02/10/25 13:40 Pulse 73 02/10/25 13:40 Resp 18 02/10/25 13:40 BP 116/66 02/10/25 13:40 Pulse Ox 94 L 02/10/25 13:40 FiO2 Intake & Output 02/09/25 02/10/25 02/10/25 18:59 06:59 18:59 Intake Total 800 Output Total 1050 750 Balance -250 -750 Weight 70.76 kg Intake: IV 800 Output: Urine 950 750 Uretheral (Cuevas) 400 Estimated Blood Loss 100 Other: Voiding Method Indwelling Catheter Indwelling Catheter Toilet # Voids 1 - Exam Patient was examined at bedside. Patient is resting comfortably in bed. No apparent distress. They are awake, alert and able to answer questions. Inspection: The surgical dressings are intact, there is small areas of strikethrough. There is no drainage. The skin surrounding the dressing is free of erythema. There is mild swelling in the operative thigh. Palpation: The operative calf is soft to compression. No calf tenderness. Neurovascular: Operative femoral nerve function is intact. The patient is able to actively plantarflex and dorsiflex their operative ankle and toes. Operative extremity sensation is intact to light touch throughout. Their operative foot appears well perfused, palpable dorsalis pedis pulse, and capillary refill under 2 seconds. - Labs CBC & Chem 7: 02/09/25 17:41 02/10/25 03:02 Labs: Abnormal Lab Results - Last 24 Hours (Table) 02/09/25 02/10/25 Range/Units 17:41 03:02 WBC 16.20 H (4.50-10.00) 10*3/uL RBC 3.85 L (4.10-5.20) 10*6/uL Hgb 11.9 L (12.0-15.0) g/dL Hct 35.6 L (37.2-46.3) % Immature Gran # 0.06 H (0.00-0.04) 10*3/uL Neutrophils # 15.32 H (1.80-7.70) 10*3/uL Lymphocytes # 0.55 L (0.90-5.00) 10*3/uL Eosinophils # 0.00 L (0.04-0.35) 10*3/uL Sodium 133 L (135-145) mmol/L Creatinine 0.4 L (0.6-1.5) mg/dL BUN/Creatinine Ratio 44.75 H (12.00-20.00) Ratio Glucose 136 H (70-110) mg/dL Calcium 8.5 L (8.7-10.3) mg/dL Assessment and Plan Assessment: Postop day #1 Operative fixation of right intertrochanteric hip fracture with short intramedullary hip screw Severe right hip osteoarthritis Multilevel lumbar degenerative disc disease Chronic pain on Percocet at baseline Plan: Weight-bear as tolerated on the operative extremity. Use a walker to ambulate. Leave surgical dressing in place. Physical therapy determined patient will need transfer to short acute rehab at time of discharge. Aspirin 81 mg twice daily for DVT prophylaxis. We appreciate internal medicine for perioperative medical management. Disposition: Plan discharge to rehab. Plan stay tonight. Plan transfer in 24 to 48 hours.
--- NOTE | 2025-02-10 18:43 | P.PN ---
Progress Note - Text Progress Note Date: 02/10/25 - Chief Complaint Fall - History of Present Illness This is a pleasant 79-year-old patient, follows with Dr. Alcaraz. Patient also follows with Dr. Arnett from pulmonary and Dr. Caputo from cardiology. Patient took a fall yesterday. Mechanical. Patient was walking in an incline tripped and fell on the right hip. Did not hit her head. No palpitation no prodromal symptoms.. There is a question about hairline fracture. Not weightbearing. MRI ordered by orthopedics Dr. Maravilla. February 08: Patient was seen this afternoon. If MRI shows: Nondisplaced intertrochanteric fracture proximal right femur with comminution of the greater trochanter. Will place on fluid restriction because of with a low sodium. DC hydrochlorothiazide. Patient is n.p.o. after midnight for probable surgery tomorrow February 09: Patient was seen this morning. Pending surgery. NPO. Later this afternoon underwent operative fixation with a short intramedullary hip screw. Patient did confirm that she drinks a lot of water. Did explain to her about her low sodium. Will place the patient on fluid restriction. February 10: Some pain is operative site. Oral intake fair. Up in the chair. Did walk to the bathroom. Family at the bedside. Active Medications Albuterol Sulfate (Albuterol Nebulized 2.5 Mg/3 Ml) 2.5 mg INHALATION RT-Q6H PRN PRN Reason: Shortness Of Breath Atorvastatin Calcium (Atorvastatin 10 Mg Tab) 10 mg PO HS [facility] Last Admin: 02/09/25 20:54 Dose: 10 mg Budesonide/Formoterol Fumarate (Symbicort 160-4.5 Mcg Inhaler) 2 puff INHALATION RT-BID [facility] Last Admin: 02/10/25 08:15 Dose: 2 puff Diazepam (Diazepam 5 Mg Tab) 2.5 mg PO Q8HR PRN PRN Reason: Mild Spasms Diazepam (Diazepam 5 Mg Tab) 5 mg PO Q8HR PRN PRN Reason: Moderate to Severe Spasms Diltiazem HCl (Diltiazem Cd 240 Mg Cap.Er.24h) 240 mg PO DAILY [facility] Last Admin: 02/10/25 09:41 Dose: 240 mg Enoxaparin Sodium (Enoxaparin 40 Mg/0.4 Ml Syringe) 40 mg SQ DAILY [facility] Last Admin: 02/10/25 09:40 Dose: 40 mg Gabapentin (Gabapentin 300 Mg Cap) 300 mg PO TID [facility] Last Admin: 02/10/25 16:50 Dose: 300 mg Hydromorphone HCl (Hydromorphone 0.5 Mg/0.5 Ml Syringe) 0.5 mg IVP Q3HR PRN PRN Reason: Pain (1 - 6) PO Intolerant Last Admin: 02/09/25 16:12 Dose: 0.5 mg Hydromorphone HCl (Hydromorphone 1 Mg/Ml 1 Ml Syringe) 1 mg IVP Q3HR PRN PRN Reason: Pain 7-8 PO Intolerant Last Admin: 02/09/25 22:33 Dose: 1 mg Hydromorphone HCl (Hydromorphone 2 Mg/Ml 1 Ml Syringe) 1.5 mg IVP Q3HR PRN PRN Reason: Pain 9-10 PO Intolerant Hydromorphone HCl (Hydromorphone 0.5 Mg/0.5 Ml Syringe) 0.125 mg IVP Q3HR PRN PRN Reason: Pain Scale 1 to 3 Hydromorphone HCl (Hydromorphone 0.5 Mg/0.5 Ml Syringe) 0.25 mg IVP Q3HR PRN PRN Reason: Pain Scale 4 to 6 Hydromorphone HCl (Hydromorphone 0.5 Mg/0.5 Ml Syringe) 0.5 mg IVP Q3HR PRN PRN Reason: Pain Scale 7 to 10 Last Admin: 02/10/25 14:21 Dose: 0.5 mg Hydromorphone HCl (Hydromorphone 0.5 Mg/0.5 Ml Syringe) 0.5 mg IVP Q5M PRN PRN Reason: Phase 1 or 2 - Pain Control Stop: 02/10/25 23:00 Last Admin: 02/09/25 16:30 Dose: 0.5 mg Hydroxyzine Pamoate (Hydroxyzine Pamoate 25 Mg Cap) 25 mg PO Q4HR PRN PRN Reason: Mild Nausea and/or Anxiety Lisinopril (Lisinopril 20 Mg Tab) 20 mg PO DAILY [facility] Last Admin: 02/10/25 09:41 Dose: 20 mg Magnesium Hydroxide (Magnesium Hydroxide 2,400 Mg/30 Ml Cup) 2,400 mg PO DAILY PRN PRN Reason: Constipation Meloxicam (Meloxicam 7.5 Mg Tab) 15 mg PO DAILY PRN PRN Reason: ARTHRITIS PAIN Last Admin: 02/08/25 14:31 Dose: 15 mg Multivitamins (Multivitamins, Thera 1 Each Tab) 1 each PO DAILY@1200 [facility] Last Admin: 02/10/25 12:44 Dose: 1 each Naloxone HCl (Naloxone 0.4 Mg/Ml 1 Ml Vial) 0.2 mg IV Q2M PRN PRN Reason: Opioid Reversal Naloxone HCl (Naloxone 0.4 Mg/Ml 1 Ml Vial) 0.2 mg IV Q2M PRN PRN Reason: Opioid Reversal Ondansetron HCl (Ondansetron 4 Mg/2 Ml Vial) 4 mg IVP Q8HR PRN PRN Reason: Nausea And Vomiting Last Admin: 02/10/25 14:21 Dose: 4 mg Oxycodone/Acetaminophen (Oxycodone-Apap 5-325mg 1 Each Tab) 1 each PO Q6HR PRN PRN Reason: Mild Breakthrough Pain (1-3) Oxycodone/Acetaminophen (Oxycodone-Apap 5-325mg 1 Each Tab) 2 each PO Q6HR PRN PRN Reason: Moderate to Severe Pain (4-10) Last Admin: 02/10/25 12:44 Dose: 2 each Potassium Chloride (Potassium Chloride Er 10 Meq Tab.Er.Prt) 10 meq PO DAILY [facility] Last Admin: 02/10/25 09:41 Dose: 10 meq Prochlorperazine Edisylate (Prochlorperazine Inj 10 Mg/2 Ml Vial) 5 mg IVP Q6H PRN PRN Reason: Nausea And Vomiting Last Admin: 02/08/25 19:43 Dose: 5 mg Senna/Docusate Sodium (Sennosides-Docusate Sodium 1 Each Tab) 2 each PO HS [facility] Last Admin: 02/09/25 20:54 Dose: 2 each Social history: Ex-smoker, lives with her sons. No alcohol. Physical examination: VITAL SIGNS: 98.3, 73, 18, 116 x 76, 94% room air GENERAL: Comfortable, up in a chair EYES: Pupils equal. Conjunctiva normal. HEENT: External appearance of nose and ears normal, oral cavity grossly normal. NECK: JVD not raised; masses not palpable. HEART: First and second heart sounds are normal; no edema. LUNGS: Respiratory rate normal; decreased breath sounds, . ABDOMEN: Soft, nontender, liver spleen not palpable, no masses palpable. PSYCH: Alert and oriented x3; mood and affect anxious. MUSCULOSKELETAL:No Clubbing/cyanosis;muscles-grossly intact. OA. Dressing over right hip incision site INVESTIGATIONS, reviewed in the clinical context: February 10: Potassium 4 creatinine 0.4 February 09: White count 13.4 hemoglobin 12 potassium 3.5 sodium 129 BUN 25 creatinine 0.7 Right hip MRI [February 08]: Nondisplaced mid IT fracture proximal right femur with comminution of the greater trochanter. Moderate right hip OA. Sigmoid diverticulosis. Chest x-ray film personally reviewed by me-[portable] borderline cardiomegaly and AP film EKG tracing personally reviewed by me-normal sinus rhythm February 07, 2025: White count 14.3 hemoglobin 12.8 platelets 204 sodium 129 potassium 3.9. 21 creatinine 0.44 Assessment and plan: -Acute nondisplaced IT fracture proximal right femur with comminution of the greater trochanter secondary to fall. Being followed by Dr. Maravilla orthopedics. February 09: IM nail screw done -COPD in a previous smoker : Fluticasone, salmeterol - Sigmoid diverticulosis, asymptomatic - Hyponatremia from excessive water intake: Better Fluid discussed with patient. Further restriction 1500 cc a day. 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 Thank you Dr. Maravilla Past Medical History Past Medical History: Asthma, COPD, Hypertension Additional Past Medical History / Comment(s): diverticulosis History of Any Multi-Drug Resistant Organisms: None Reported Past Surgical History: Appendectomy, Hysterectomy, Tonsillectomy Additional Past Surgical History / Comment(s): breast biopsy Past Anesthesia/Blood Transfusion Reactions: Postoperative Nausea & Vomiting (PONV) Additional Past Anesthesia/Blood Transfusion Reaction / Comm: No hx. blood transfusion Past Psychological History: No Psychological Hx Reported Smoking Status: Former smoker Past Alcohol Use History: None Reported Past Drug Use History: None Reported
[2025-02-10] MEDS: FERROUS SULFATE 325 MG TAB PO SCH (21:57)
--- NOTE | 2025-02-11 08:37 | P.DS ---
Providers Date of admission: 02/06/25 20:44 Attending physician: Mane Maravilla Consults: 02/06/25 20:41 Consult Physician Routine Consulting Provider: Audie Ye Consult Reason/Comments: medical management Do you want consulting provider notified?: Yes Primary care physician: [facility] Course: On 02/06/2025 patient presented to the emergency department after a ground-level fall. The patient states that she was coming down stairs when she lost her balance and fell. She was immediately painful in her right hip and was unable to get up and ambulate. She called to her 2 sons who live with her. She was unable to walk and had severe right hip pain so she was brought to the ER. X- rays showed a minimally displaced greater trochanteric fracture. Due to the patient's pain and inability to ambulate she was admitted to orthopedics. An MRI was ordered and demonstrated a right intertrochanteric hip fracture. She does state that she has chronic right hip and back pain for which she takes Percocet. She has not sure who prescribes this. She has no other complaints this morning. On 02/09/2025 she underwent operative fixation of right intertrochanteric hip fracture with short intramedullary hip screw. The procedure well. She was transferred to the orthopedic floor. There were no acute events overnight. She was evaluated by physical therapy and it was determined that she would need discharge to short acute rehab at time of discharge. Her hip pain has been controlled with oral pain medication. She was evaluated at bedside this morning. Patient is resting comfortably in bed. No apparent distress. They are awake, alert and able to answer questions. Inspection: The surgical dressing is intact, there is a small area of strikethrough. The skin surrounding the dressing is free of erythema. There is mild swelling in the operative thigh. Palpation: The operative calf is soft to compression. No calf tenderness. Neurovascular: Operative femoral nerve function is intact. The patient is able to actively plantarflex and dorsiflex their operative ankle and toes. Operative extremity sensation is intact to light touch throughout. Their operative foot appears well perfused, palpable dorsalis pedis pulse. Start form and paper prescription for Percocet 5/325 was placed in patient's chart. Patient can discharge to short acute rehab today. Assessment: 02/09/2025 Status post Operative fixation of right intertrochanteric hip fracture with short intramedullary hip screw Severe right hip osteoarthritis Multilevel lumbar degenerative disc disease Chronic pain on Percocet at baseline Patient Condition at Discharge: Stable Plan - Discharge Summary Discharge Rx Participant: No New Discharge Prescriptions: New Aspirin 81 mg PO BID #60 tab Omeprazole 20 mg PO DAILY #30 tab oxyCODONE-APAP 5-325MG [Percocet 5-325 mg] 1 tab PO Q6HR PRN #12 tab PRN Reason: Pain Sennosides-Docusate Sodium [Senokot-S] 1 tab PO BID PRN #60 tablet PRN Reason: Constipation No Action Albuterol Inhaler [Ventolin Hfa Inhaler] 2 puff INHALATION RT-Q6H PRN PRN Reason: Shortness Of Breath Meloxicam [Mobic] 15 mg PO DAILY PRN PRN Reason: ARTHRITIS PAIN Atorvastatin [Lipitor] 10 mg PO HS Perindopril Erbumine (Aceon) 8 mg PO DAILY Potassium Chloride ER [K-Dur 10] 10 meq PO DAILY dilTIAZem HCL [dilTIAZem HCL 24Hr ER (Xr)] 240 mg PO DAILY Indapamide [Lozol] 1.25 mg PO DAILY oxyCODONE-APAP 5-325MG [Percocet 5-325 mg] 1 tab PO Q8H PRN PRN Reason: Pain Fluticasone Propion/Salmeterol [Fluticasone-Salmeterol 500-50] 2 puff INHALATION RT-BID Gabapentin [Neurontin] 300 mg PO TID Discharge Medication List Albuterol Inhaler [Ventolin Hfa Inhaler] 2 puff INHALATION RT-Q6H PRN 02/05/23 [History] Atorvastatin [Lipitor] 10 mg PO HS 02/05/23 [History] Fluticasone Propion/Salmeterol [Fluticasone-Salmeterol 500-50] 2 puff INHALATION RT-BID 02/05/23 [History] Indapamide [Lozol] 1.25 mg PO DAILY 02/05/23 [History] Meloxicam [Mobic] 15 mg PO DAILY PRN 02/05/23 [History] dilTIAZem HCL [dilTIAZem HCL 24Hr ER (Xr)] 240 mg PO DAILY 02/05/23 [History] oxyCODONE-APAP 5-325MG [Percocet 5-325 mg] 1 tab PO Q8H PRN 02/05/23 [History] Gabapentin [Neurontin] 300 mg PO TID 02/07/25 [History] Perindopril Erbumine (Aceon) 8 mg PO DAILY 02/07/25 [History] Potassium Chloride ER [K-Dur 10] 10 meq PO DAILY 02/07/25 [History] Aspirin 81 mg PO BID #60 tab 02/11/25 [Rx] Omeprazole 20 mg PO DAILY #30 tab 02/11/25 [Rx] Sennosides-Docusate Sodium [Senokot-S] 1 tab PO BID PRN #60 tablet 02/11/25 [Rx] oxyCODONE-APAP 5-325MG [Percocet 5-325 mg] 1 tab PO Q6HR PRN #12 tab 02/11/25 [Rx] Follow up Appointment(s)/Referral(s): Jeet Alcaraz DO [Primary Care Provider] - 1-2 days [facility] [place], [NON-STAFF] - As Needed Mane Maravilla MD [Medical Doctor] - 2 Weeks Activity/Diet/Wound Care/Special Instructions: 1. Weight-bear as tolerated on your operative extremity unless instructed otherwise. Use a walker or other assistive device to ambulate. 2. Leave surgical dressing in place. If your dressing becomes saturated with blood, there is drainage, or the dressing becomes loose please contact the off ice. 3. It is okay to shower with your surgical dressing, but do not submerge in water (no hot tubs, bath's, swimming etc.) 4. Take your blood clot prevention medication as prescribed (aspirin, Eliquis, Xarelto, and Plavix are commonly prescribed medications for blood clot prevention) 5. While taking [place] or Percocet for pain take a stool softener (Ex: Colace) and drink lots of water. 6. Keep all follow-up appointments as scheduled. You will usually be seen in 1-2 weeks following surgery. 7. Please contact the office with any questions or concerns [phone] Discharge Disposition: TRANSFER TO SNF/ECF
[2025-02-11 11:22] LABS: HCT 34.3 % (37.2-46.3); HGB 11.5 g/dL (12.0-15.0); MCH 31.6 pg (27.0-32.0); MCHC 33.5 g/dL (32.0-37.0); MCV 94.2 fL (80.0-97.0); Mean Platelet Volume 10.8 fL (9.5-12.2); Platelet Count 224 10*3/uL (140-440); RBC 3.64 10*6/uL (4.10-5.20); RDW 13.9 % (11.5-14.5); WBC 12.65 10*3/uL (4.50-10.00)
[2025-02-11 11:38] LABS: African American GFR (CKD) >90 (>60 ml/min/1.73 sqM); Anion Gap 9 mmol/L; Blood Urea Nitrogen 18 mg/dL (7-17); Calcium 9.3 mg/dL (8.4-10.2); Carbon Dioxide 29 mmol/L (22-30); Chloride 97 mmol/L (98-107); Glucose 94 mg/dL (74-99); Non-African American GFR(CKD) >90 (>60 ml/min/1.73 sqM); Potassium 3.5 mmol/L (3.5-5.1); Sodium 135 mmol/L (137-145)
[2025-02-11 14:00] VITALS: BP 118/70; PULSE 71; RESP 16; TEMP 97.8
--- NOTE | 2025-02-11 15:00 | P.PN ---
Progress Note - Text Progress Note Date: 02/11/25 - Chief Complaint Fall - History of Present Illness This is a pleasant 79-year-old patient, follows with Dr. Alcaraz. Patient also follows with Dr. Arnett from pulmonary and Dr. Caputo from cardiology. Patient took a fall yesterday. Mechanical. Patient was walking in an incline tripped and fell on the right hip. Did not hit her head. No palpitation no prodromal symptoms.. There is a question about hairline fracture. Not weightbearing. MRI ordered by orthopedics Dr. Maravilla. February 08: Patient was seen this afternoon. If MRI shows: Nondisplaced intertrochanteric fracture proximal right femur with comminution of the greater trochanter. Will place on fluid restriction because of with a low sodium. DC hydrochlorothiazide. Patient is n.p.o. after midnight for probable surgery tomorrow February 09: Patient was seen this morning. Pending surgery. NPO. Later this afternoon underwent operative fixation with a short intramedullary hip screw. Patient did confirm that she drinks a lot of water. Did explain to her about her low sodium. Will place the patient on fluid restriction. February 7: Some pain is operative site. Oral intake fair. Up in the chair. Did walk to the bathroom. Family at the bedside. February 11: Doing much better. Did ambulate. Up in a chair. No nausea vomiting. Did tolerate the diet. Will be going to rehab. Discussed Active Medications Albuterol Sulfate (Albuterol Nebulized 2.5 Mg/3 Ml) 2.5 mg INHALATION RT-Q6H PRN PRN Reason: Shortness Of Breath Atorvastatin Calcium (Atorvastatin 10 Mg Tab) 10 mg PO HS [facility] Last Admin: 02/10/25 21:57 Dose: 10 mg Budesonide/Formoterol Fumarate (Symbicort 160-4.5 Mcg Inhaler) 2 puff INHALATION RT-BID [facility] Last Admin: 02/11/25 09:42 Dose: 2 puff Diazepam (Diazepam 5 Mg Tab) 2.5 mg PO Q8HR PRN PRN Reason: Mild Spasms Diazepam (Diazepam 5 Mg Tab) 5 mg PO Q8HR PRN PRN Reason: Moderate to Severe Spasms Diltiazem HCl (Diltiazem Cd 240 Mg Cap.Er.24h) 240 mg PO DAILY [facility] Last Admin: 02/11/25 08:58 Dose: 240 mg Enoxaparin Sodium (Enoxaparin 40 Mg/0.4 Ml Syringe) 40 mg SQ DAILY [facility] Last Admin: 02/11/25 08:59 Dose: 40 mg Ferrous Sulfate (Ferrous Sulfate 325 Mg Tab) 325 mg PO W/LUNCH [facility] Last Admin: 02/11/25 13:33 Dose: 325 mg Gabapentin (Gabapentin 300 Mg Cap) 300 mg PO TID [facility] Last Admin: 02/11/25 08:58 Dose: 300 mg Hydromorphone HCl (Hydromorphone 0.5 Mg/0.5 Ml Syringe) 0.5 mg IVP Q3HR PRN PRN Reason: Pain (1 - 6) PO Intolerant Last Admin: 02/09/25 16:12 Dose: 0.5 mg Hydromorphone HCl (Hydromorphone 1 Mg/Ml 1 Ml Syringe) 1 mg IVP Q3HR PRN PRN Reason: Pain 7-8 PO Intolerant Last Admin: 02/09/25 22:33 Dose: 1 mg Hydromorphone HCl (Hydromorphone 2 Mg/Ml 1 Ml Syringe) 1.5 mg IVP Q3HR PRN PRN Reason: Pain 9-10 PO Intolerant Hydromorphone HCl (Hydromorphone 0.5 Mg/0.5 Ml Syringe) 0.125 mg IVP Q3HR PRN PRN Reason: Pain Scale 1 to 3 Hydromorphone HCl (Hydromorphone 0.5 Mg/0.5 Ml Syringe) 0.25 mg IVP Q3HR PRN PRN Reason: Pain Scale 4 to 6 Hydromorphone HCl (Hydromorphone 0.5 Mg/0.5 Ml Syringe) 0.5 mg IVP Q3HR PRN PRN Reason: Pain Scale 7 to 10 Last Admin: 02/10/25 21:56 Dose: 0.5 mg Hydroxyzine Pamoate (Hydroxyzine Pamoate 25 Mg Cap) 25 mg PO Q4HR PRN PRN Reason: Mild Nausea and/or Anxiety Lisinopril (Lisinopril 20 Mg Tab) 20 mg PO DAILY [facility] Last Admin: 02/11/25 08:58 Dose: 20 mg Magnesium Hydroxide (Magnesium Hydroxide 2,400 Mg/30 Ml Cup) 2,400 mg PO DAILY PRN PRN Reason: Constipation Meloxicam (Meloxicam 7.5 Mg Tab) 15 mg PO DAILY PRN PRN Reason: ARTHRITIS PAIN Last Admin: 02/08/25 14:31 Dose: 15 mg Multivitamins (Multivitamins, Thera 1 Each Tab) 1 each PO DAILY@1200 [facility] Last Admin: 02/11/25 13:33 Dose: 1 each Naloxone HCl (Naloxone 0.4 Mg/Ml 1 Ml Vial) 0.2 mg IV Q2M PRN PRN Reason: Opioid Reversal Naloxone HCl (Naloxone 0.4 Mg/Ml 1 Ml Vial) 0.2 mg IV Q2M PRN PRN Reason: Opioid Reversal Ondansetron HCl (Ondansetron 4 Mg/2 Ml Vial) 4 mg IVP Q8HR PRN PRN Reason: Nausea And Vomiting Last Admin: 02/10/25 14:21 Dose: 4 mg Oxycodone/Acetaminophen (Oxycodone-Apap 5-325mg 1 Each Tab) 1 each PO Q6HR PRN PRN Reason: Mild Breakthrough Pain (1-3) Oxycodone/Acetaminophen (Oxycodone-Apap 5-325mg 1 Each Tab) 2 each PO Q6HR PRN PRN Reason: Moderate to Severe Pain (4-10) Last Admin: 02/11/25 08:57 Dose: 2 each Potassium Chloride (Potassium Chloride Er 10 Meq Tab.Er.Prt) 10 meq PO DAILY [facility] Last Admin: 02/11/25 08:58 Dose: 10 meq Prochlorperazine Edisylate (Prochlorperazine Inj 10 Mg/2 Ml Vial) 5 mg IVP Q6H PRN PRN Reason: Nausea And Vomiting Last Admin: 02/10/25 23:08 Dose: 5 mg Senna/Docusate Sodium (Sennosides-Docusate Sodium 1 Each Tab) 2 each PO HS [facility] Last Admin: 02/10/25 21:57 Dose: 2 each Social history: Ex-smoker, lives with her sons. No alcohol. Physical examination: VITAL SIGNS: 97.8, 71, 16, 1.8 x 70, 96% room air GENERAL: Comfortable, up in a chair EYES: Pupils equal. Conjunctiva normal. HEENT: External appearance of nose and ears normal, oral cavity grossly normal. NECK: JVD not raised; masses not palpable. HEART: First and second heart sounds are normal; no edema. LUNGS: Respiratory rate normal; decreased breath sounds, . ABDOMEN: Soft, nontender, liver spleen not palpable, no masses palpable. PSYCH: Alert and oriented x3; mood and affect anxious. MUSCULOSKELETAL:No Clubbing/cyanosis;muscles-grossly intact. OA. Dressing over right hip incision site INVESTIGATIONS, reviewed in the clinical context: February 11: White count 12.6 hemoglobin 11.5 potassium 3.5 creatinine 0.48 February 10: Potassium 4 creatinine 0.4 February 09: White count 13.4 hemoglobin 12 potassium 3.5 sodium 129 BUN 25 creatinine 0.7 Right hip MRI [February 08]: Nondisplaced mid IT fracture proximal right femur with comminution of the greater trochanter. Moderate right hip OA. Sigmoid divertic ulosis. Chest x-ray film personally reviewed by me-[portable] borderline cardiomegaly and AP film EKG tracing personally reviewed by me-normal sinus rhythm February 07, 2025: White count 14.3 hemoglobin 12.8 platelets 204 sodium 129 potassium 3.9. 21 creatinine 0.44 Assessment and plan: -Acute nondisplaced IT fracture proximal right femur with comminution of the greater trochanter secondary to fall. Being followed by Dr. Maravilla orthopedics. February 09: IM nail screw done -COPD in a previous smoker : Fluticasone, salmeterol - Sigmoid diverticulosis, asymptomatic - Hyponatremia from excessive water intake: Improved Fluid discussed with patient. Further restriction 1500 cc a day. 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 Questions answered Thank you Dr. Maravilla Past Medical History Past Medical History: Asthma, COPD, Hypertension Additional Past Medical History / Comment(s): diverticulosis History of Any Multi-Drug Resistant Organisms: None Reported Past Surgical History: Appendectomy, Hysterectomy, Tonsillectomy Additional Past Surgical History / Comment(s): breast biopsy Past Anesthesia/Blood Transfusion Reactions: Postoperative Nausea & Vomiting (PONV) Additional Past Anesthesia/Blood Transfusion Reaction / Comm: No hx. blood transfusion Past Psychological History: No Psychological Hx Reported Smoking Status: Former smoker Past Alcohol Use History: None Reported Past Drug Use History: None Reported
== END 2025-02-11 16:10 | DRG 481 ==
LOC: EC 17:55 → 4SSUR 20:44
PROVIDERS: ADMIT Orthopaedic Surgery; ATTEND Orthopaedic Surgery
PROC: 0QS606Z Reposition Right Upper Femur with Intramedullary Internal Fixation Device, Open Approach (ICD-10-PCS; principal; 2025-02-06)
PROC: 8E0YXBF Computer Assisted Procedure of Lower Extremity, With Fluoroscopy (ICD-10-PCS; 2025-02-06)
DX: S72.141A Displaced intertrochanteric fracture of right femur, initial encounter for closed fracture (principal); D62 Acute posthemorrhagic anemia; S72.111A Displaced fracture of greater trochanter of right femur, initial encounter for closed fracture; J44.89 Other specified chronic obstructive pulmonary disease; I10 Essential (primary) hypertension; E87.1 Hypo-osmolality and hyponatremia; K57.30 Diverticulosis of large intestine without perforation or abscess without bleeding; G89.29 Other chronic pain; M16.11 Unilateral primary osteoarthritis, right hip; M54.2 Cervicalgia; M51.369 Other intervertebral disc degeneration, lumbar region without mention of lumbar back pain or lower extremity pain; Z87.891 Personal history of nicotine dependence; E78.5 Hyperlipidemia, unspecified; W10.9XXA Fall (on) (from) unspecified stairs and steps, initial encounter; Y93.01 Activity, walking, marching and hiking; Z79.1 Long term (current) use of non-steroidal anti-inflammatories (NSAID); Z79.51 Long term (current) use of inhaled steroids; Z79.82 Long term (current) use of aspirin; Z79.891 Long term (current) use of opiate analgesic; Z79.899 Other long term (current) drug therapy; Z90.710 Acquired absence of both cervix and uterus; Z88.1 Allergy status to other antibiotic agents; Z88.0 Allergy status to penicillin; Z87.19 Personal history of other diseases of the digestive system
CPT/HCPCS: 36415; 71045; 72125; 72170; 72192; 73501; 80048; 80053; 83930; 85025; 85027; 85610; 85730; 86850; 86900; 86901; 94640; 96372; 96374; 99285

== ENCOUNTER → 2025-02-24 | Outpatient (CLI) | payer MEDICARE ==
--- NOTE | 2025-02-24 10:45 | US ---
EXAMINATION TYPE: US venous doppler duplex LE RT DATE OF EXAM: 02/24/2025 10:28 AM COMPARISON: NONE CLINICAL INDICATION: Female, 79 years old with history of I82.401 ACUTE EMBOLISM AND THROMBOSIS UNSP DEEP VEINS; Hip broken 02/06, surgery 02/09, pain and edema, Pain TECHNIQUE: The lower extremity deep venous system is examined utilizing real time linear array sonog mark with graded compression, color doppler sonography, and spectral doppler. SIDE PERFORMED: Right FINDINGS: VESSELS IMAGED: Common Femoral Vein Deep Femoral Vein Greater Saphenous Vein * Femoral Vein Popliteal Vein Small Saphenous Vein * Proximal Calf Veins (* superficial vessels) Right Leg: Negative for DVT, Color Doppler imaging shows patency of the vessels. Spectral waveforms are within normal limits. exam slightly limited by habitus, edema, and shadowing calcified arterial vessels IMPRESSION: Suboptimal study. 1. No evidence of acute deep vein thrombosis of the right lower extremity. [facility], , 02/24/2025 10:43 AM
== END | disposition home or self-care (01) ==
LOC: RADUSWWP 09:50
PROVIDERS: ATTEND Orthopaedic Surgery
DX: I82.401 Acute embolism and thrombosis of unspecified deep veins of right lower extremity (principal); S72.141D Displaced intertrochanteric fracture of right femur, subsequent encounter for closed fracture with routine healing; Z48.89 Encounter for other specified surgical aftercare